=== PATIENT | female | born 1995 | race Caucasian/White ===

== ENCOUNTER 2017-03-07 20:19 | Observation (INO) | payer MEDICAID ==
[2017-03-07 20:50] VITALS: BP 124/88; PULSE 127
[2017-03-07 21:57] LABS: Collection Type CLEAN CATCH
[2017-03-07 21:58] LABS: Bilirubin NEGATIVE (NEGATIVE); Blood 50 Ery/ul (0-5); COMPLETE URINE MICROSCOPIC? YES; Glucose NEGATIVE (NEGATIVE); Leukocyte Esterase 2+ (NEGATIVE)
[2017-03-07 21:59] LABS: Bacteria FEW /HPF (NEGATIVE); Epithelial Cells FEW /HPF (FEW)
== END 2017-03-07 22:18 | disposition home or self-care (01) ==
LOC: OB 20:19 → UNDOADMOB 20:19 → UNDODISOB 22:18
PROVIDERS: ADMIT Family Medicine; ATTEND Family Medicine
DX: Z34.82 Encounter for supervision of other normal pregnancy, second trimester (principal)
CPT/HCPCS: 80307; 81000; 87086; G0378

== ENCOUNTER 2017-06-02 15:02 | Observation (INO) | payer MEDICAID ==
[2017-06-02 16:55] LABS: Bilirubin SMALL (NEGATIVE); Collection Type VOID; Glucose TRACE mg/dL (NEGATIVE); Leukocyte Esterase 2+ (NEGATIVE)
[2017-06-02 16:56] LABS: Bacteria MODERATE /HPF (NEGATIVE); COMPLETE URINE MICROSCOPIC? YES; Epithelial Cells MODERATE /HPF (FEW); WBC >100 /HPF (0-5)
[2017-06-02] MEDS ORDERED: Sodium Chloride 0.9% 1000 ML 1,000 ML IV STA (17:08)
[2017-06-02 20:51] VITALS: BP 120/85; PULSE 118
== END 2017-06-02 20:30 | disposition home or self-care (01) ==
LOC: UNDOADMOB 15:02 → OB 15:02
PROVIDERS: ADMIT Family Medicine; ATTEND Family Medicine
DX: Z34.83 Encounter for supervision of other normal pregnancy, third trimester (principal)
CPT/HCPCS: 80307; 81000; G0378

== ENCOUNTER 2017-06-07 14:56 | Observation (INO) | payer MEDICAID ==
[2017-06-07 16:07] VITALS: BP 130/86; PULSE 99
== END 2017-06-07 17:20 | disposition home or self-care (01) ==
LOC: UNDOADMOB 14:56 → OB 14:56 → UNDODISOB 17:20
PROVIDERS: ADMIT Family Medicine; ATTEND Family Medicine
DX: Z34.83 Encounter for supervision of other normal pregnancy, third trimester (principal)
CPT/HCPCS: 59025; G0378

== ENCOUNTER 2017-06-25 00:51 | Observation (INO) | payer MEDICAID ==
[2017-06-25 01:03] VITALS: BP 130/81; PULSE 107
[2017-06-25] MEDS ORDERED: TYLENOL 325 MG PO PRN (02:34)
[2017-06-25] MEDS ORDERED: TYLENOL 325 MG ONE (02:35)
== END 2017-06-25 04:55 | disposition home or self-care (01) ==
LOC: OB 00:51
PROVIDERS: ADMIT Family Medicine; ATTEND Family Medicine
DX: Z34.83 Encounter for supervision of other normal pregnancy, third trimester (principal)
CPT/HCPCS: 80307; G0378; A9270-GY

== ENCOUNTER 2017-07-01 16:58 | Observation (INO) | payer MEDICAID ==
[2017-07-01 17:34] LABS: Bilirubin NEGATIVE (NEGATIVE); Blood 50 Ery/ul (0-5); COMPLETE URINE MICROSCOPIC? YES; Collection Type CCMS; Glucose NEGATIVE (NEGATIVE); Leukocyte Esterase 2+ (NEGATIVE)
[2017-07-01 17:36] LABS: Bacteria MANY /HPF (NEGATIVE); Epithelial Cells MODERATE /HPF (FEW); WBC 50-100 /HPF (0-5)
[2017-07-01 18:25] VITALS: BP 118/63; PULSE 111
== END 2017-07-01 18:25 | disposition home or self-care (01) ==
LOC: OB 16:58
PROVIDERS: ADMIT Family Medicine; ATTEND Family Medicine
DX: Z34.93 Encounter for supervision of normal pregnancy, unspecified, third trimester (principal); Z3A.36 36 weeks gestation of pregnancy
CPT/HCPCS: 80307; 81000; 87086; G0378

== ENCOUNTER 2017-07-08 05:39 | Observation (INO) | payer MEDICAID ==
[2017-07-08 09:22] VITALS: BP 125/85; PULSE 107
== END 2017-07-08 09:15 | disposition home or self-care (01) ==
LOC: OB 05:39
PROVIDERS: ADMIT Family Medicine; ATTEND Family Medicine
DX: Z34.83 Encounter for supervision of other normal pregnancy, third trimester (principal)
CPT/HCPCS: 80307; G0378

== ENCOUNTER 2017-07-08 21:06 | Observation (INO) | payer MEDICAID ==
[2017-07-08 21:45] LABS: Bilirubin NEGATIVE (NEGATIVE); Blood 50 Ery/ul (0-5); COMPLETE URINE MICROSCOPIC? YES; Collection Type VOID; Glucose NEGATIVE (NEGATIVE); Leukocyte Esterase 1+ (NEGATIVE)
[2017-07-08 21:46] LABS: Bacteria MANY /HPF (NEGATIVE); Epithelial Cells MANY /HPF (FEW); Mucus MANY /HPF (NEGATIVE); WBC 15-25 /HPF (0-5)
[2017-07-08] MEDS ORDERED: MAALOX ES 30 ML UNIT DOSE PO ONE (23:20)
[2017-07-08] MEDS ORDERED: MAALOX ES 30 ML UNIT DOSE ONE (23:22)
[2017-07-09] MEDS ORDERED: TYLENOL EXTRA STRENGTH 500 MG PO PRN (01:53)
[2017-07-09] MEDS ORDERED: TYLENOL EXTRA STRENGTH 500 MG ONE (01:58)
[2017-07-09 02:06] VITALS: BP 114/66; PULSE 122
== END 2017-07-09 07:00 | disposition home or self-care (01) ==
LOC: OB 21:06
PROVIDERS: ADMIT Family Medicine; ATTEND Family Medicine
DX: Z34.83 Encounter for supervision of other normal pregnancy, third trimester (principal)
CPT/HCPCS: 80307; 81000; G0378; A9270-GY

== ENCOUNTER 2017-07-11 19:41 | Observation (INO) | payer MEDICAID ==
[2017-07-11 23:17] VITALS: BP 112/67; PULSE 140
== END 2017-07-11 23:00 | disposition home or self-care (01) ==
LOC: UNDOADMOB 19:41 → OB 19:41 → UNDODISOB 23:00
PROVIDERS: ADMIT Family Medicine; ATTEND Family Medicine
DX: Z34.83 Encounter for supervision of other normal pregnancy, third trimester (principal)
CPT/HCPCS: 80307; G0378

== ENCOUNTER 2017-07-12 08:08 | Inpatient (IN) | payer MEDICAID ==
[2017-07-12] MEDS ORDERED: OB EPIDURAL NAROPIN/SUFENTANIL IN NACL EPIDURAL PRN (08:27)
[2017-07-12] MEDS ORDERED: Lactated Ringers 1,000 ML IV ONE (08:27)
[2017-07-12] MEDS ORDERED: STADOL 2 MG IV PRN (08:27)
[2017-07-12] MEDS ORDERED: Zofran 4 MG/2 ML VIAL IV PRN (08:27)
[2017-07-12] MEDS ORDERED: Phenergan 25 MG INJ IV PRN (08:27)
[2017-07-12] MEDS ORDERED: Ephedrine Sulfate 50 MG/ML IV PRN (08:27)
[2017-07-12] MEDS ORDERED: Lactated Ringers 1,000 ML IV SCH (08:30)
[2017-07-12] MEDS ORDERED: PITOCIN 30 UNITS/ LR 500 ML 500 ML IV SCH ×2 (08:30→10:00)
[2017-07-12 09:05] LABS: BASOPHIL % 0.2 % (0.0-0.4); Eosinophil % 1.7 % (0.00-5.0); Granulocytes % 72.1 % (36.0-66.0); Lymphocytes % 18.1 % (24.0-44.0); Mean Cell Volume 74.2 fl (78-100); Mean Platelet Volume 9.1 fl (6-9.5); Monocytes % 7.9 % (0.0-12.0); Platelet Count 281 K/mm3 (150-450); Red Blood Count 3.65 M/mm3 (4.1-5.4); White Blood Count 9.6 K/mm3 (4.0-10.5)
[2017-07-12 09:37] LABS: BAND 2 % (0.0-2.0); Eosinophil 2 % (0.00-3.0); Metamyelocyte 1 %; Platelet Estimate NORMAL (NORMAL); Total Cells Counted 100
[2017-07-12 09:38] LABS: Hypochromia 1+; Polychromasia 1+
[2017-07-12] MEDS ORDERED: BRETHINE 1 MG/ML SQ PRN (09:45)
[2017-07-12] MEDS ORDERED: XYLOCAINE 1% HCL 20 ML MDV ONE (14:05)
[2017-07-12] MEDS ORDERED: Anucort-HC SUPPOSITORY PR PRN (15:05)
[2017-07-12] MEDS ORDERED: Dermoplast Spray TP PRN (15:05)
[2017-07-12] MEDS ORDERED: Dulcolax 10 MG SUPP PR PRN (15:05)
[2017-07-12] MEDS ORDERED: Ambien 10 MG PO PRN (15:05)
[2017-07-12] MEDS ORDERED: TUCKS TP PRN (15:05)
[2017-07-12] MEDS ORDERED: TYLENOL EXTRA STRENGTH 500 MG PO PRN (15:05)
[2017-07-12] MEDS ORDERED: CORTISONE 1% CREAM TP PRN (15:05)
[2017-07-12] MEDS ORDERED: Restoril 15 MG PO PRN (15:05)
[2017-07-12 18:32] LABS: BASOPHIL % 0.1 % (0.0-0.4); Eosinophil % 0.6 % (0.00-5.0); Granulocytes % 83.8 % (36.0-66.0); Lymphocytes % 11.6 % (24.0-44.0); Mean Cell Volume 74.3 fl (78-100); Mean Corpuscular Hemoglobin 22.4 pg (26-32); Mean Platelet Volume 9.3 fl (6-9.5); Monocytes % 3.9 % (0.0-12.0); Platelet Count 248 K/mm3 (150-450); Red Blood Count 3.43 M/mm3 (4.1-5.4); Red Cell Distribution Width 15.9 % (11.5-14.0); White Blood Count 12.1 K/mm3 (4.0-10.5)
[2017-07-12] MEDS: MOTRIN 400 MG PO PRN (19:47)
[2017-07-12] MEDS: NORCO 5/325 MG PO PRN (19:47)
[2017-07-12] MEDS: Colace 100 MG PO SCH (22:55)
[2017-07-12] MEDS: FEOSOL 325 MG PO SCH (22:55)
[2017-07-13] MEDS: MOTRIN 400 MG PO PRN ×3 (01:36→23:50)
[2017-07-13] MEDS: NORCO 5/325 MG PO PRN ×4 (01:36→23:50)
[2017-07-13 05:38] LABS: BASOPHIL % 0.3 % (0.0-0.4); Eosinophil % 1.7 % (0.00-5.0); Granulocytes % 64.3 % (36.0-66.0); Mean Cell Volume 74.7 fl (78-100); Mean Corpuscular Hemoglobin 22.7 pg (26-32); Mean Platelet Volume 9.2 fl (6-9.5); Monocytes % 8.7 % (0.0-12.0); Platelet Count 244 K/mm3 (150-450); Red Blood Count 3.08 M/mm3 (4.1-5.4); Red Cell Distribution Width 15.6 % (11.5-14.0); White Blood Count 9.5 K/mm3 (4.0-10.5)
[2017-07-13] MEDS: Colace 100 MG PO SCH ×2 (08:59→23:46)
[2017-07-13] MEDS: FEOSOL 325 MG PO SCH ×2 (08:59→23:46)
[2017-07-14] MEDS: MOTRIN 400 MG PO PRN ×2 (06:04→13:11)
[2017-07-14] MEDS: NORCO 5/325 MG PO PRN ×2 (06:05→14:59)
[2017-07-14] MEDS: Colace 100 MG PO SCH (12:21)
[2017-07-14] MEDS: FEOSOL 325 MG PO SCH (12:21)
[2017-07-14 14:48] VITALS: BP 136/86; PULSE 92
== END 2017-07-14 15:20 | disposition home or self-care (01) | DRG 775 ==
LOC: OBSVTOIN 08:08 → OB 08:08
PROVIDERS: ADMIT Family Medicine; ATTEND Family Medicine
PROC: 10E0XZZ Delivery of Products of Conception, External Approach (ICD-10-PCS; principal; 2017-07-12)
DX: O80 Encounter for full-term uncomplicated delivery (principal); Z3A.37 37 weeks gestation of pregnancy; Z37.0 Single live birth
CPT/HCPCS: 01967; 36415; 80307; 85025; G0378; J2590; J2795; A9270-GY

== ENCOUNTER 2018-07-14 21:57 | Emergency (ER) | payer OTHER ==
[2018-07-14] MEDS ORDERED: Sodium Chloride 0.9% 1000 ML 1,000 ML IV STA (22:05)
[2018-07-14] MEDS ORDERED: BABY ASPIRIN 81 MG CHEW PO ONE (22:05)
[2018-07-14] MEDS ORDERED: BABY ASPIRIN 81 MG CHEW ONE (22:11)
[2018-07-14] MEDS ORDERED: Sodium Chloride 0.9% 1000 ML 1,000 ML ONE (22:11)
[2018-07-14 22:18] LABS: BASOPHIL % 0.6 % (0.0-0.4); Basophil (Absolute #) 0.04 (0-0.4); Eosinophil % 2.7 % (0.00-5.0); Eosinophil (Absolute #) 0.17 (0-0.5); Granulocyte Absolute (ANC) 3.28 (1.4-6.9); Hematocrit 40.8 % (35-47); Hemoglobin 13.2 gm/dl (12.0-16.0); Lymphocyte (Absolute #) 2.26 (1.0-4.6); Lymphocytes % 35.8 % (24.0-44.0); Mean Cell Volume 79.7 fl (78-100); Mean Corpuscular Hemoglobin 25.8 pg (26-32); Mean Corpuscular Hgb Concent. 32.4 g/dl (32-36); Mean Platelet Volume 10.3 fl (6-9.5); Monocyte (Absolute #) 0.56 (0.0-1.3); Monocytes % 8.9 % (0.0-12.0); Platelet Count 259 K/mm3 (150-450); Red Blood Count 5.12 M/mm3 (4.1-5.4); Red Cell Distribution Width 17.3 % (11.5-14.0); White Blood Count 6.3 K/mm3 (4.0-10.5)
[2018-07-14 22:36] LABS: ANION GAP 14.7 MEQ/L (5-15); BLOOD UREA NITROGEN 16 mg/dL (7-17); CHLORIDE 103 mmol/L (98-107); Carbon Dioxide 28 mmol/L (22-30); Creatinine 1 0.69 mg/dL (0.52-1.04); Glucose 94 mg/dL (74-106); Potassium 3.8 mmol/L (3.5-5.1); SODIUM 141 mmol/L (137-145)
--- NOTE | 2018-07-14 22:44 | ERPHSYRPT ---
- History of Present Illness Time Seen by Provider: 07/14/18 22:10 Historian: patient Exam Limitations: clinical condition Patient Subjective Stated Complaint: pt states that she has had chest pain for 2 months. pt states that she has had had chest pain today since 0700 that radiates to her back. pt states she has felt lightheaded and dizzy with these chest pains, palpitations, and fatigue. pt states she has some tingling in her right hand fingers. pt denies SOB, n/v. radial pulses equal. no diaphoresis. Triage Nursing Assessment: see above Physician History: PATIENT COMPLAINS OF INTERMITTENT SHARP PAINS FOR 2 MONTHS ASSOCIATED WITH PALPITATIONS, DYSPNEA AND DIZZINESS. STATES PAIN EXACERBATED UPON MOTION OF TORSO AND INSPIRATION. DENIES COUGH, FEVER OR CHILLS. HAS RADIATION OF PAIN TO HER BACK. Timing/Duration: week(s) (8) Activities at Onset: activity Quality: sharpness Location: substernal Chest Pain Radiation: back Severity of Pain-Max: moderate Severity of Pain-Current: mild Modifying Factors: Improves With: movement, change in position Associated Symptoms: shortness of breath, dizziness Prior Chest Pain/Cardiac Workup: no prior cardiac workup Nitro Today/Relief: no nitro taken today Aspirin Treatment Today: 81 mg x 4, provided by EMS Allergies/Adverse Reactions: No Known Drug Allergies Allergy (Verified 07/11/17 20:24) Hx Tetanus, Diphtheria Vaccination/Date Given: Yes Hx Influenza Vaccination/Date Given: Yes (2016) Hx Pneumococcal Vaccination/Date Given: No Immunizations Up to Date: Yes - Review of Systems Constitutional: No Fever, No Chills Eyes: No Symptoms Ears, Nose, & Throat: No Symptoms Respiratory: Dyspnea, No Cough Cardiac: Chest Pain, Palpitations, No Edema, No Syncope Abdominal/Gastrointestinal: No Abdominal Pain, No Nausea, No Vomiting, No Diarrhea Genitourinary Symptoms: No Dysuria Musculoskeletal: No Back Pain, No Neck Pain Skin: No Rash Neurological: Other (DIZZINESS), No Dizziness, No Focal Weakness, No Sensory Changes Psychological: No Symptoms Endocrine: No Symptoms All Other Systems: Reviewed and Negative - Past Medical History Pertinent Past Medical History: No Neurological History: No Pertinent History ENT History: No Pertinent History Cardiac History: No Pertinent History Respiratory History: No Pertinent History Endocrine Medical History: No Pertinent History Musculoskeletal History: No Pertinent History GI Medical History: No Pertinent History History: No Pertinent History Psycho-Social History: Depression Female Reproductive Disorders: No Pertinent History Other Medical History: 2wk hospitalization at age 5 for e-coli - Past Surgical History Past Surgical History: No Neuro Surgical History: No Pertinent History Cardiac: No Pertinent History Respiratory: No Pertinent History Gastrointestinal: No Pertinent History Genitourinary: No Pertinent History Musculoskeletal: No Pertinent History Female Surgical History: No Pertinent History - Social History Smoking Status: Current every day smoker How long have you smoked: 2 years Exposure to second hand smoke: No Drug Use: none Patient Lives Alone: No - Female History Hx Now: (UNKNOWN) - Nursing Vital Signs Nursing Vital Signs: Initial Vital Signs Pulse Rate 129 H 07/14/18 21:58 Respiratory Rate 16 07/14/18 21:58 Blood Pressure 138/109 07/14/18 21:58 O2 Sat by Pulse Oximetry 100 07/14/18 21:58 Pain Scale Pain Intensity 4 - Physical Exam General Appearance: no apparent distress, alert, other (APPEARS IN NO DISTRESS) Eye Exam: PERRL/EOMI, eyes nml inspection Ears, Nose, Throat Exam: normal ENT inspection, moist mucous membranes Neck Exam: normal inspection, non-tender, supple, full range of motion Respiratory Exam: normal breath sounds, chest tenderness (PARASTERNAL TENDERNESS T4 TO T6 PARASTERNAL), lungs clear, No respiratory distress Cardiovascular Exam: regular rate/rhythm, normal heart sounds, tachycardia Gastrointestinal/Abdomen Exam: soft, No tenderness, No mass Back Exam: normal inspection, No CVA tenderness, No vertebral tenderness Extremity Exam: normal inspection, normal range of motion Neurologic Exam: alert, 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, cooperative, normal mood/affect, sensation nml, No motor deficits Skin Exam: normal color, warm, dry SpO2: 100 Oxygen Delivery: Room Air - Course EKG Interpreted by Me: RATE, Sinus Rhythm, Sinus Tach, NORMAL INTERVALS, Other ( REPEAT EKG AT 2341 NORAML SINUS RATE OF 64 NO ISCHEMIC CHANGES) Ordered Tests: Active Orders 24 hr Category Date Time Status EKG-ER Only STAT Care 07/14/18 22:05 Active IV Insertion STAT Care 07/14/18 22:05 Active CHEST 2 VIEWS (PA AND LAT) Stat Exams 07/14/18 22:05 Taken BMP Stat Lab 07/14/18 22:05 Completed CBC W DIFF Stat Lab 07/14/18 22:05 Completed D-DIMER QUANTITATION Stat Lab 07/14/18 22:05 Completed HCG,QUALITATIVE URINE Stat Lab 07/14/18 22:50 Completed MAG [MAGNESIUM] Stat Lab 07/14/18 22:05 Completed TROPONIN Q3H Lab 07/14/18 22:05 Completed TROPONIN Q3H Lab 07/15/18 01:15 Ordered TROPONIN Q3H Lab 07/15/18 04:15 Ordered TROPONIN Q3H Lab 07/15/18 07:15 Ordered TROPONIN Q3H Lab 07/15/18 10:15 Ordered TSH [TSH, 3RD Generation] Stat Lab 07/14/18 22:05 Completed Urine Triage Profile Stat Lab 07/14/18 22:50 Completed Medication Summary Generic Name Dose Route Start Last Admin Trade Name Freq PRN Reason Stop Dose Admin Sodium Chloride 1,000 mls @ 500 mls/hr 07/14/18 22:05 07/14/18 22:15 Sodium Chloride 0.9% 1000 Ml IV 07/15/18 00:04 500 mls/hr .Q2H STA Administration Discontinued Medications Generic Name Dose Route Start Last Admin Trade Name Freq PRN Reason Stop Dose Admin Aspirin 324 mg 07/14/18 22:05 07/14/18 22:14 Baby Aspirin 81 Mg Chew PO 07/14/18 22:06 324 mg STAT ONE Administration Aspirin Confirm 07/14/18 22:11 Baby Aspirin 81 Mg Chew Administered 07/14/18 22:12 Dose 324 mg .ROUTE .STK-MED ONE Sodium Chloride Confirm 07/14/18 22:11 Sodium Chloride 0.9% 1000 Ml Administered 07/14/18 22:12 Dose 1,000 mls @ ud .ROUTE .STK-MED ONE Lab/Rad Data: Laboratory Result Diagrams 07/14/18 22:05 07/14/18 22:05 Laboratory Results 07/14/18 07/14/18 07/14/18 Range/Units 22:50 22:50 22:05 WBC (4.0-10.5) K/mm3 RBC (4.1-5.4) M/mm3 Hgb (12.0-16.0) gm/dl Hct (35-47) % MCV (78-100) fl MCH (26-32) pg MCHC (32-36) g/dl RDW (11.5-14.0) % Plt Count (150-450) K/mm3 MPV (6-9.5) fl Gran % (36.0-66.0) % Eos # (Auto) (0-0.5) Absolute Lymphs (auto) (1.0-4.6) Absolute Monos (auto) (0.0-1.3) Lymphocytes % (24.0-44.0) % Monocytes % (0.0-12.0) % Eosinophils % (0.00-5.0) % Basophils % (0.0-0.4) % Absolute Granulocytes (1.4-6.9) Basophils # (0-0.4) D-Dimer (215-500) ng/mL Sodium (137-145) mmol/L Potassium (3.5-5.1) mmol/L Chloride (98-107) mmol/L Carbon Dioxide (22-30) mmol/L Anion Gap (5-15) MEQ/L BUN (7-17) mg/dL Creatinine (0.52-1.04) mg/dL Estimated GFR ML/MIN Glucose (74-106) mg/dL Calcium (8.4-10.2) mg/dL Magnesium 2.3 (1.6-2.3) mg/dL Troponin I (0.000-0.034) ng/mL TSH 3rd Generation (0.47-4.68) mIU/L Urine HCG, Qual NEGATIVE (Negative) Urine Opiates Level NEGATIVE (NEGATIVE) Ur Methadone NEGATIVE (NEGATIVE) Urine Barbiturates NEGATIVE (NEGATIVE) Ur Phencyclidine (PCP) NEGATIVE (NEGATIVE) Urine Amphetamine NEGATIVE (NEGATIVE) U Benzodiazepine Level NEGATIVE (NEGATIVE) Urine Cocaine NEGATIVE (NEGATIVE) Urine Marijuana (THC) POSITIVE (NEGATIVE) 07/14/18 07/14/18 07/14/18 Range/Units 22:05 22:05 22:05 WBC (4.0-10.5) K/mm3 RBC (4.1-5.4) M/mm3 Hgb (12.0-16.0) gm/dl Hct (35-47) % MCV (78-100) fl MCH (26-32) pg MCHC (32-36) g/dl RDW (11.5-14.0) % Plt Count (150-450) K/mm3 MPV (6-9.5) fl Gran % (36.0-66.0) % Eos # (Auto) (0-0.5) Absolute Lymphs (auto) (1.0-4.6) Absolute Monos (auto) (0.0-1.3) Lymphocytes % (24.0-44.0) % Monocytes % (0.0-12.0) % Eosinophils % (0.00-5.0) % Basophils % (0.0-0.4) % Absolute Granulocytes (1.4-6.9) Basophils # (0-0.4) D-Dimer 233 (215-500) ng/mL Sodium (137-145) mmol/L Potassium (3.5-5.1) mmol/L Chloride (98-107) mmol/L Carbon Dioxide (22-30) mmol/L Anion Gap (5-15) MEQ/L BUN (7-17) mg/dL Creatinine (0.52-1.04) mg/dL Estimated GFR ML/MIN Glucose (74-106) mg/dL Calcium (8.4-10.2) mg/dL Magnesium (1.6-2.3) mg/dL Troponin I < 0.012 (0.000-0.034) ng/mL TSH 3rd Generation 2.790 (0.47-4.68) mIU/L Urine HCG, Qual (Negative) Urine Opiates Level (NEGATIVE) Ur Methadone (NEGATIVE) Urine Barbiturates (NEGATIVE) Ur Phencyclidine (PCP) (NEGATIVE) Urine Amphetamine (NEGATIVE) U Benzodiazepine Level (NEGATIVE) Urine Cocaine (NEGATIVE) Urine Marijuana (THC) (NEGATIVE) 07/14/18 07/14/18 Range/Units 22:05 22:05 WBC 6.3 (4.0-10.5) K/mm3 RBC 5.12 (4.1-5.4) M/mm3 Hgb 13.2 (12.0-16.0) gm/dl Hct 40.8 (35-47) % MCV 79.7 (78-100) fl MCH 25.8 L (26-32) pg MCHC 32.4 (32-36) g/dl RDW 17.3 H (11.5-14.0) % Plt Count 259 (150-450) K/mm3 MPV 10.3 H (6-9.5) fl Gran % 52.0 (36.0-66.0) % Eos # (Auto) 0.17 (0-0.5) Absolute Lymphs (auto) 2.26 (1.0-4.6) Absolute Monos (auto) 0.56 (0.0-1.3) Lymphocytes % 35.8 (24.0-44.0) % Monocytes % 8.9 (0.0-12.0) % Eosinophils % 2.7 (0.00-5.0) % Basophils % 0.6 (0.0-0.4) % Absolute Granulocytes 3.28 (1.4-6.9) Basophils # 0.04 (0-0.4) D-Dimer (215-500) ng/mL Sodium 141 (137-145) mmol/L Potassium 3.8 (3.5-5.1) mmol/L Chloride 103 (98-107) mmol/L Carbon Dioxide 28 (22-30) mmol/L Anion Gap 14.7 (5-15) MEQ/L BUN 16 (7-17) mg/dL Creatinine 0.69 (0.52-1.04) mg/dL Estimated GFR > 60.0 ML/MIN Glucose 94 (74-106) mg/dL Calcium 10.0 (8.4-10.2) mg/dL Magnesium (1.6-2.3) mg/dL Troponin I (0.000-0.034) ng/mL TSH 3rd Generation (0.47-4.68) mIU/L Urine HCG, Qual (Negative) Urine Opiates Level (NEGATIVE) Ur Methadone (NEGATIVE) Urine Barbiturates (NEGATIVE) Ur Phencyclidine (PCP) (NEGATIVE) Urine Amphetamine (NEGATIVE) U Benzodiazepine Level (NEGATIVE) Urine Cocaine (NEGATIVE) Urine Marijuana (THC) (NEGATIVE) - Progress Progress Note: 07/14/18 22:44 IV HYDRATION NORMAL SALINE 1 LITER/HR, LOPRESSOR 5MG IV, ALL LAB TEST REVIEWED AND ARE NORMAL ADMINISTERED HOILTER MONITOR 48 HOURS 07/14/18 23:48 Counseled pt/family regarding: lab results, diagnosis, need for follow-up, rad results - Departure Time of Disposition: 23:55 Departure Disposition: Home Clinical Impression: PALPITATIONS, CHEST WALL PAIN Condition: Stable Critical Care Time: No Referrals: LIAN REYES [Primary Care Provider] - Additional Instructions: TORADOL 10 MG EVERY 6 HOURS NEEDED FOR PAIN. WEAR HOILTER MONITOR FOR 48 HOURS THEN RETURN TO RESPIRATORY DEPARTMENT. CONSULT YOUR PRIMARY CARE PROVIDER FOR FOLLOWUP IN 1 WEEK. Prescriptions: Ketorolac Tromethamine [Toradol] 10 mg PO Q6H PRN PRN #20 tablet PRN Reason: Pain
[2018-07-14 23:22] LABS: Amphetamine,Urine NEGATIVE (NEGATIVE); Barbiturate,Urine NEGATIVE (NEGATIVE); Benzodiazepine,Urine NEGATIVE (NEGATIVE); Cocaine,Urine NEGATIVE (NEGATIVE); Methadone,Urine NEGATIVE (NEGATIVE); Opiate,Urine NEGATIVE (NEGATIVE); PCP,Urine NEGATIVE (NEGATIVE); THC,Urine POSITIVE (NEGATIVE)
[2018-07-14 23:41] VITALS: PULSE 61; O2SAT 100
[2018-07-14] MEDS ORDERED: TORAdol 10 MG TABLET PO ONE (23:53)
[2018-07-14 23:54] VITALS: BP 112/82
[2018-07-14] MEDS ORDERED: MOTRIN 600 MG ONE (23:56)
[2018-07-14] MEDS ORDERED: MOTRIN 600 MG PO ONE (23:56)
--- NOTE | 2018-07-15 08:35 | XRAY ---
Indication: Chest pain. Comparison: None PA/lateral chest demonstrates normal heart and lungs with a few incidental tiny calcified granulomas. Bony thorax intact with minimal double curvature scoliosis.
== END 2018-07-15 00:10 | disposition home or self-care (01) ==
LOC: ED 21:57
DX: R07.89 Other chest pain (principal); R00.2 Palpitations; R06.00 Dyspnea, unspecified; R42 Dizziness and giddiness
CPT/HCPCS: 36000; 36415; 71046; 80048; 80307; 83735; 84443; 84484; 84703; 85025; 85379; 93005; 93225; 96360; 99284; A9270-GY

== ENCOUNTER 2019-04-29 22:26 | Observation (INO) | payer OTHER ==
[2019-04-29] MEDS ORDERED: Sodium Chloride 0.9% 1000 ML 1,000 ML IV STA (23:04)
[2019-04-29] MEDS ORDERED: Phenergan 25 MG INJ IM ONE (23:04)
--- NOTE | 2019-04-29 23:07 | ERPHSYRPT ---
- History of Present Illness Time Seen by Provider: 04/29/19 23:05 Historian: patient Exam Limitations: no limitations Physician History: 23-year-old white female arrives with complaint of suprapubic abdominal pain symptoms since one half hour prior to arrival. Patient has no nausea no vomiting no diarrhea no fevers. Past medical history depression apparently has had Escherichia coli in the past. Past surgical history negative Last menstrual period 2 days ago Timing/Duration: today (one half hour ago) Quality: cramping Abdominal Pain Onset Location: suprapubic Pain Radiation: no radiation Severity of Pain-Max: moderate Severity of Pain-Current: none Associated Symptoms: No back, No chest pain, No diaphoresis, No diarrhea, No fever/chills, No fatigue, No headache, No heartburn, No loss of appetite, No nausea, No neck pain, No rash, No shortness of breath, No syncope, No vomiting, No weakness Previous symptoms: no prior history Allergies/Adverse Reactions: No Known Drug Allergies Allergy (Verified 04/29/19 23:04) Home Medications: No Reportable Medications [No Reported Medications] 04/29/19 [History] Hx Tetanus, Diphtheria Vaccination/Date Given: Yes Hx Influenza Vaccination/Date Given: Yes (2016) Hx Pneumococcal Vaccination/Date Given: No - Review of Systems Constitutional: No Fever, No Chills Eyes: No Symptoms Ears, Nose, & Throat: No Symptoms Respiratory: No Cough, No Dyspnea Cardiac: No Chest Pain, No Edema, No Syncope Abdominal/Gastrointestinal: Abdominal Pain (suprapubic abdominal pain), No Nausea, No Vomiting, No Diarrhea, No Constipation, No Hematemesis, No Hematochezia, No Melena, No Dysphagia, No Appetite Changes Genitourinary Symptoms: No Dysuria Musculoskeletal: No Back Pain, No Neck Pain Skin: No Rash Neurological: No Dizziness, No Focal Weakness, No Sensory Changes Psychological: No Symptoms Endocrine: No Symptoms All Other Systems: Reviewed and Negative - Past Medical History Pertinent Past Medical History: No Neurological History: No Pertinent History ENT History: No Pertinent History Cardiac History: No Pertinent History Respiratory History: No Pertinent History Endocrine Medical History: No Pertinent History Musculoskeletal History: No Pertinent History GI Medical History: No Pertinent History History: No Pertinent History Psycho-Social History: Depression Female Reproductive Disorders: No Pertinent History Other Medical History: 2wk hospitalization at age 5 for e-coli - Past Surgical History Past Surgical History: No Neuro Surgical History: No Pertinent History Cardiac: No Pertinent History Respiratory: No Pertinent History Gastrointestinal: No Pertinent History Genitourinary: No Pertinent History Musculoskeletal: No Pertinent History Female Surgical History: No Pertinent History - Social History Smoking Status: Current every day smoker How long have you smoked: 2 years Exposure to second hand smoke: No Drug Use: none Patient Lives Alone: No - Nursing Vital Signs Nursing Vital Signs: Initial Vital Signs Temperature 97.4 F 04/29/19 23:05 Pulse Rate 52 L 04/29/19 23:05 Respiratory Rate 18 04/29/19 23:05 Blood Pressure 129/90 04/29/19 23:05 O2 Sat by Pulse Oximetry 100 04/29/19 23:05 Pain Scale Pain Intensity 10 - Physical Exam General Appearance: mild distress, alert, other (patient keeps her knees drawn up will not straighten them so they can evaluate her abdomen) Eye Exam: PERRL/EOMI, eyes nml inspection Ears, Nose, Throat Exam: normal ENT inspection, pharynx normal, moist mucous membranes Neck Exam: normal inspection, non-tender, supple, full range of motion Respiratory Exam: normal breath sounds, lungs clear, No respiratory distress Cardiovascular Exam: regular rate/rhythm, normal heart sounds, capillary refill <2 sec Gastrointestinal/Abdomen Exam: tenderness (suprapubic abdominal tenderness), No mass Back Exam: normal inspection, normal range of motion, No CVA tenderness, No vertebral tenderness Extremity Exam: normal inspection, normal range of motion, pelvis stable Neurologic Exam: alert, 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, 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 Small amount of ascites. Fluid-filled distal small bowel with some questionable mucosal prominence may represent a nonspecific enteritis. 2. No obstructive stone hydronephrosis. Structure likely representing a normal appendix in the right pelvis.) Ordered Tests: Active Orders 24 hr Category Date Time Status IV Insertion STAT Care 04/29/19 23:04 Active ABDOMEN AND PELVIS W/0 CONTRAS [CT] Stat Exams 04/30/19 00:21 Taken AMYLASE Stat Lab 04/29/19 23:09 Completed CBC W DIFF Stat Lab 04/29/19 23:09 Completed CMP Stat Lab 04/29/19 23:09 Completed CULTURE,URINE Stat Lab 04/29/19 23:48 Received HCG QUALITATIVE,SERUM Stat Lab 04/29/19 23:48 Completed LIPASE Stat Lab 04/29/19 23:09 Completed UA W/RFX UR CULTURE Stat Lab 04/29/19 23:48 Completed Urine Triage Profile Stat Lab 04/29/19 23:48 Completed Medication Summary Discontinued Medications Generic Name Dose Route Start Last Admin Trade Name Ryneq PRN Reason Stop Dose Admin Sodium Chloride 1,000 mls @ 999 mls/hr 04/29/19 23:04 04/30/19 00:39 Sodium Chloride 0.9% 1000 Ml IV 04/30/19 00:04 Infused .Q1H1M STA Infusion Sodium Chloride Confirm 04/29/19 23:24 Sodium Chloride 0.9% 1000 Ml Administered 04/29/19 23:25 Dose 1,000 mls @ ud .ROUTE .STK-MED ONE Ceftriaxone Sodium/Dextrose 1 g in 50 mls @ 100 mls/hr 04/30/19 01:03 01:49 Rocephin 1 Gm-D5w 50 Ml Bag IV 04/30/19 01:32 Infused STAT STA Infusion Ceftriaxone Sodium/Dextrose Confirm 04/30/19 01:04 Rocephin 1 Gm-D5w 50 Ml Bag Administered 04/30/19 01:05 Dose 1 g in 50 mls @ ud IV .STK-MED ONE Morphine Sulfate 4 mg 04/29/19 23:57 04/30/19 00:00 Morphine Sulfate 4 Mg Inj IV 04/29/19 23:58 4 mg STAT ONE Administration Morphine Sulfate Confirm 04/29/19 23:58 Morphine Sulfate 4 Mg Inj Administered 04/29/19 23:59 Dose 4 mg .ROUTE .STK-MED ONE Promethazine HCl 25 mg 04/29/19 23:04 04/29/19 23:27 Phenergan 25 Mg Inj IM 04/29/19 23:05 25 mg STAT ONE Administration Promethazine HCl Confirm 04/29/19 23:24 Phenergan 25 Mg Inj Administered 04/29/19 23:25 Dose 25 mg .ROUTE .STK-MED ONE Lab/Rad Data: Laboratory Result Diagrams 04/29/19 23:09 04/29/19 23:09 Laboratory Results 04/29/19 04/29/19 04/29/19 Range/Units 23:48 23:48 23:48 WBC (4.0-10.5) K/mm3 RBC (4.1-5.4) M/mm3 Hgb (12.0-16.0) gm/dl Hct (35-47) % MCV (78-100) fl MCH (26-32) pg MCHC (32-36) g/dl RDW (11.5-14.0) % Plt Count (150-450) K/mm3 MPV (6-9.5) fl Gran % (36.0-66.0) % Eos # (Auto) (0-0.5) Absolute Lymphs (auto) (1.0-4.6) Absolute Monos (auto) (0.0-1.3) Lymphocytes % (24.0-44.0) % Monocytes % (0.0-12.0) % Eosinophils % (0.00-5.0) % Basophils % (0.0-0.4) % Absolute Granulocytes (1.4-6.9) Basophils # (0-0.4) Sodium (137-145) mmol/L Potassium (3.5-5.1) mmol/L Chloride (98-107) mmol/L Carbon Dioxide (22-30) mmol/L Anion Gap (5-15) MEQ/L BUN (7-17) mg/dL Creatinine (0.52-1.04) mg/dL Estimated GFR ML/MIN Glucose (74-106) mg/dL Calcium (8.4-10.2) mg/dL Total Bilirubin (0.2-1.3) mg/dL AST (14-36) U/L ALT (0-35) U/L Alkaline Phosphatase (38-126) U/L Serum Total Protein (6.3-8.2) g/dL Albumin (3.5-5.0) g/dL Amylase (30-110) U/L Lipase (23-300) U/L Serum , Qual NEGATIVE (Negative) Urine Color YELLOW (YELLOW) Urine Appearance CLEAR (CLEAR) Urine pH 5.0 (5-6) Ur Specific [place] 1.024 (1.005-1.025) Urine Protein 30 (Negative) Urine Ketones TRACE (NEGATIVE) Urine Blood SMALL (0-5) Michel/ul Urine Nitrite NEGATIVE (NEGATIVE) Urine Bilirubin NEGATIVE (NEGATIVE) Urine Urobilinogen 4 (0-1) mg/dL Ur Leukocyte Esterase MODERATE (NEGATIVE) Urine WBC (Auto) 26-50 (0-5) /HPF Urine RBC (Auto) 6-10 (0-2) /HPF U Epithel Cells (Auto) RARE (FEW) /HPF Urine Bacteria (Auto) RARE (NEGATIVE) /HPF Urine Mucus (Auto) MANY (NEGATIVE) /HPF Urine Culture Reflexed YES (NO) Urine Glucose NEGATIVE (NEGATIVE) mg/dL Urine Opiates Level NEGATIVE (NEGATIVE) Ur Methadone NEGATIVE (NEGATIVE) Urine Barbiturates NEGATIVE (NEGATIVE) Ur Phencyclidine (PCP) NEGATIVE (NEGATIVE) Urine Amphetamine POSITIVE (NEGATIVE) U Benzodiazepine Level NEGATIVE (NEGATIVE) Urine Cocaine NEGATIVE (NEGATIVE) Urine Marijuana (THC) POSITIVE (NEGATIVE) 04/29/19 04/29/19 Range/Units 23:09 23:09 WBC 4.7 (4.0-10.5) K/mm3 RBC 5.24 (4.1-5.4) M/mm3 Hgb 14.4 (12.0-16.0) gm/dl Hct 42.9 (35-47) % MCV 81.9 (78-100) fl MCH 27.5 (26-32) pg MCHC 33.6 (32-36) g/dl RDW 14.0 (11.5-14.0) % Plt Count 246 (150-450) K/mm3 MPV 9.9 H (6-9.5) fl Gran % 44.5 (36.0-66.0) % Eos # (Auto) 0.23 (0-0.5) Absolute Lymphs (auto) 2.05 (1.0-4.6) Absolute Monos (auto) 0.31 (0.0-1.3) Lymphocytes % 43.6 (24.0-44.0) % Monocytes % 6.6 (0.0-12.0) % Eosinophils % 4.9 (0.00-5.0) % Basophils % 0.4 (0.0-0.4) % Absolute Granulocytes 2.09 (1.4-6.9) Basophils # 0.02 (0-0.4) Sodium 141 (137-145) mmol/L Potassium 3.6 (3.5-5.1) mmol/L Chloride 104 (98-107) mmol/L Carbon Dioxide 28 (22-30) mmol/L Anion Gap 12.8 (5-15) MEQ/L BUN 17 (7-17) mg/dL Creatinine 0.83 (0.52-1.04) mg/dL Estimated GFR > 60.0 ML/MIN Glucose 97 (74-106) mg/dL Calcium 9.6 (8.4-10.2) mg/dL Total Bilirubin 0.50 (0.2-1.3) mg/dL AST 26 (14-36) U/L ALT 17 (0-35) U/L Alkaline Phosphatase 59 (38-126) U/L Serum Total Protein 7.7 (6.3-8.2) g/dL Albumin 4.6 (3.5-5.0) g/dL Amylase 76 (30-110) U/L Lipase 82 (23-300) U/L Serum , Qual (Negative) Urine Color (YELLOW) Urine Appearance (CLEAR) Urine pH (5-6) Ur Specific [place] (1.005-1.025) Urine Protein (Negative) Urine Ketones (NEGATIVE) Urine Blood (0-5) Michel/ul Urine Nitrite (NEGATIVE) Urine Bilirubin (NEGATIVE) Urine Urobilinogen (0-1) mg/dL Ur Leukocyte Esterase (NEGATIVE) Urine WBC (Auto) (0-5) /HPF Urine RBC (Auto) (0-2) /HPF U Epithel Cells (Auto) (FEW) /HPF Urine Bacteria (Auto) (NEGATIVE) /HPF Urine Mucus (Auto) (NEGATIVE) /HPF Urine Culture Reflexed (NO) Urine Glucose (NEGATIVE) mg/dL Urine Opiates Level (NEGATIVE) Ur Methadone (NEGATIVE) Urine Barbiturates (NEGATIVE) Ur Phencyclidine (PCP) (NEGATIVE) Urine Amphetamine (NEGATIVE) U Benzodiazepine Level (NEGATIVE) Urine Cocaine (NEGATIVE) Urine Marijuana (THC) (NEGATIVE) - Progress Progress: improved Progress Note: 04/30/19 00:22 23-year-old white female arrives with complaint suprapubic abdominal pain since just prior to arrival. Patient with negative test CBC CMP essentially normal. Patient given normal saline 1 L Phenergan 25 mg IM and morphine 4 mg IV. Patient sleeping when I walk into her but states she still has some abdominal pain will go ahead and obtain CT of the abdomen and pelvis. patient does have a positive urinary tract infection. . 04/30/19 00:23 04/30/19 02:28 Remarkable for a small amount of ascites. There is a fluid filled distal small bowel with some questionable mucosal prominence which may represent nonspecific enteritis. There was no obstructing stone hydronephrosis and there was a structure likely representing a normal appendix in the right pelvis. Patient continue to have pain despite IV normal saline, morphine, IM Phenergan. Morphine 4 mg was ordered a second time I discussed the case with Dr. Wallace will place patient on observation diagnosis abdominal pain. UTI. Patient has been given Rocephin 1 g IV. - Departure Departure Disposition: Observation Clinical Impression: Abdominal pain Qualifiers: Abdominal location: lower abdomen, unspecified Qualified Code(s): R10.30 - Lower abdominal pain, unspecified UTI (urinary tract infection) Qualifiers: Urinary tract infection type: site unspecified Hematuria presence: with hematuria Qualified Code(s): N39.0 - Urinary tract infection, site not specified ; R31.9 - Hematuria, unspecified Condition: Fair Critical Care Time: No Referrals: LIAN REYES [Primary Care Provider] -
[2019-04-29 23:17] LABS: BASOPHIL % 0.4 % (0.0-0.4); Basophil (Absolute #) 0.02 (0-0.4); Eosinophil % 4.9 % (0.00-5.0); Eosinophil (Absolute #) 0.23 (0-0.5); Granulocyte Absolute (ANC) 2.09 (1.4-6.9); Granulocytes % 44.5 % (36.0-66.0); Hematocrit 42.9 % (35-47); Hemoglobin 14.4 gm/dl (12.0-16.0); Lymphocyte (Absolute #) 2.05 (1.0-4.6); Lymphocytes % 43.6 % (24.0-44.0); Mean Cell Volume 81.9 fl (78-100); Mean Corpuscular Hemoglobin 27.5 pg (26-32); Mean Corpuscular Hgb Concent. 33.6 g/dl (32-36); Mean Platelet Volume 9.9 fl (6-9.5); Monocyte (Absolute #) 0.31 (0.0-1.3); Monocytes % 6.6 % (0.0-12.0); Platelet Count 246 K/mm3 (150-450); Red Blood Count 5.24 M/mm3 (4.1-5.4); White Blood Count 4.7 K/mm3 (4.0-10.5)
[2019-04-29 23:18] LABS: ALBUMIN 4.6 g/dL (3.5-5.0); ALKALINE PHOSPHATASE 59 U/L (38-126); AMYLASE 76 U/L (30-110); ANION GAP 12.8 MEQ/L (5-15); BLOOD UREA NITROGEN 17 mg/dL (7-17); CHLORIDE 104 mmol/L (98-107); Calcium 9.6 mg/dL (8.4-10.2); Carbon Dioxide 28 mmol/L (22-30); Creatinine 1 0.83 mg/dL (0.52-1.04); Glucose 97 mg/dL (74-106); LIPASE 82 U/L (23-300); Potassium 3.6 mmol/L (3.5-5.1); SGOT/AST 26 U/L (14-36); SGPT/ALT 17 U/L (0-35); SODIUM 141 mmol/L (137-145); Total Protein 7.7 g/dL (6.3-8.2)
[2019-04-29] MEDS ORDERED: Phenergan 25 MG INJ ONE (23:24)
[2019-04-29] MEDS ORDERED: Sodium Chloride 0.9% 1000 ML 1,000 ML ONE (23:24)
[2019-04-29] MEDS ORDERED: MORPHINE SULFATE 4 MG INJ IV ONE (23:57)
[2019-04-29] MEDS ORDERED: MORPHINE SULFATE 4 MG INJ ONE (23:58)
[2019-04-30 00:04] LABS: Appearance CLEAR (CLEAR); Bacteria RARE /HPF (NEGATIVE); Bilirubin NEGATIVE (NEGATIVE); Blood SMALL Ery/ul (0-5); Epithelial Cells RARE /HPF (FEW); Glucose NEGATIVE (NEGATIVE); Ketones TRACE (NEGATIVE); Leukocyte Esterase MODERATE (NEGATIVE); Mucus MANY /HPF (NEGATIVE); Nitrite NEGATIVE (NEGATIVE); Protein,Urine Dip 30 (Negative); Specific Gravity 1.024 (1.005-1.025); Urobilinogen 4 mg/dL (0-1); WBC 26-50 /HPF (0-5)
[2019-04-30 00:16] LABS: Barbiturate,Urine NEGATIVE (NEGATIVE); Benzodiazepine,Urine NEGATIVE (NEGATIVE); Cocaine,Urine NEGATIVE (NEGATIVE); Methadone,Urine NEGATIVE (NEGATIVE); Opiate,Urine NEGATIVE (NEGATIVE); PCP,Urine NEGATIVE (NEGATIVE); THC,Urine POSITIVE (NEGATIVE)
[2019-04-30 00:32] LABS: Amphetamine,Urine POSITIVE (NEGATIVE)
[2019-04-30] MEDS ORDERED: ROCEPHIN 1 Gm-D5w 50 ml Bag** 1 G/50 ML IVPB IV STA (01:03)
[2019-04-30] MEDS ORDERED: ROCEPHIN 1 Gm-D5w 50 ml Bag** 1 G/50 ML IVPB IV ONE ×2 (01:04→19:57)
[2019-04-30] MEDS ORDERED: MORPHINE SULFATE 4 MG INJ ONE (02:27)
[2019-04-30] MEDS ORDERED: MORPHINE SULFATE 4 MG INJ IV ONE (02:27)
[2019-04-30] MEDS ORDERED: Zofran 4 MG/2 ML VIAL IV PRN (02:53)
[2019-04-30] MEDS: Sodium Chloride 0.9% 1000 ML 1,000 ML IV SCH ×3 (03:28→17:48)
[2019-04-30 05:38] LABS: BASOPHIL % 0.1 % (0.0-0.4); Basophil (Absolute #) 0.01 (0-0.4); Eosinophil % 1.2 % (0.00-5.0); Eosinophil (Absolute #) 0.13 (0-0.5); Granulocyte Absolute (ANC) 8.33 (1.4-6.9); Granulocytes % 78.5 % (36.0-66.0); Hematocrit 39.6 % (35-47); Hemoglobin 13.1 gm/dl (12.0-16.0); Lymphocyte (Absolute #) 1.57 (1.0-4.6); Lymphocytes % 14.8 % (24.0-44.0); Mean Cell Volume 83.2 fl (78-100); Mean Corpuscular Hemoglobin 27.5 pg (26-32); Mean Corpuscular Hgb Concent. 33.1 g/dl (32-36); Mean Platelet Volume 9.9 fl (6-9.5); Monocyte (Absolute #) 0.57 (0.0-1.3); Monocytes % 5.4 % (0.0-12.0); Platelet Count 203 K/mm3 (150-450); Red Blood Count 4.76 M/mm3 (4.1-5.4); White Blood Count 10.6 K/mm3 (4.0-10.5)
[2019-04-30 06:04] LABS: ALBUMIN 3.9 g/dL (3.5-5.0); ALKALINE PHOSPHATASE 55 U/L (38-126); ANION GAP 11.1 MEQ/L (5-15); BLOOD UREA NITROGEN 16 mg/dL (7-17); CHLORIDE 107 mmol/L (98-107); Calcium 9.1 mg/dL (8.4-10.2); Carbon Dioxide 27 mmol/L (22-30); Creatinine 1 0.76 mg/dL (0.52-1.04); Glucose 96 mg/dL (74-106); Potassium 3.5 mmol/L (3.5-5.1); SGOT/AST 28 U/L (14-36); SGPT/ALT 15 U/L (0-35); SODIUM 142 mmol/L (137-145); Total Protein 6.8 g/dL (6.3-8.2)
[2019-04-30 07:47] LABS: AMYLASE 51 U/L (30-110); LIPASE 47 U/L (23-300)
[2019-04-30] MEDS: MORPHINE SULFATE 4 MG INJ IV PRN ×3 (08:26→19:47)
--- NOTE | 2019-04-30 08:49 | XRAY ---
Indication: Right lower quadrant pain. Difficulty urinating. Multiple contiguous axial images obtained through the abdomen and pelvis without contrast as ordered. Comparison: None Lung bases are clear. Heart is not enlarged. Lack of contrast and little to no fat limits evaluation of the abdomen/pelvis. Stomach is distended with food/fluid. Noncontrasted stomach and bowel loops appear nonobstructed. Mild uniformly fluid distended small bowel loops throughout with synchronous fluid leveling, ileus versus enteritis. Tiny free fluid in the both colic gutters and pelvis. Normal air-filled appendix. No free air. Remaining liver, gallbladder, pancreas, spleen, adrenal glands, kidneys, bladder, uterus, and aorta appear unremarkable for noncontrast exam. Osseous structures intact. Impression: 1. Fluid distended small bowel loops with fluid leveling, ileus versus enteritis. Tiny abdomen/pelvic free fluid possibly reactive. 2. Remaining CT abdomen/pelvis without contrast exam is negative. Comment: Preliminary interpretation was made by [facility]. No discrepancy. CT DI 42.77
[2019-04-30] MEDS: BACTRIM DS TABLET PO SCH ×2 (09:47→21:46)
--- NOTE | 2019-04-30 10:24 | XRAY ---
Indication: Abdomen pain. Two-dimensional gallbladder sonogram performed. Comparison: None Tiny perihepatic fluid just anterior to the gallbladder. Remaining visualized portions of the gallbladder, liver, pancreas, and right kidney appear sonographically normal. Common bile duct measures 3.9 mm. Right kidney measures 13.5 cm in length. No ascites. Impression: Tiny nonspecific perihepatic fluid in a otherwise negative gallbladder sonogram.
--- NOTE | 2019-04-30 10:28 | XRAY ---
Indication: Pelvic pain. Two-dimensional transabdominal pelvic sonogram performed. Comparison: None Uterus anteverted measuring 8.0 x 3.6 x 5.0 cm. Myometrium homogeneous in echogenicity. Endometrial stripe measures 11.3 mm. No new major cavity mass or fluid collection. Left ovary measures 4.6 x 2.8 x 5.0 cm with normal follicular cysts. Right ovary not seen. No suspicious adnexal mass or free fluid. Incidental echogenic debris seen in the dependent urinary bladder lumen overall measuring 2.3 x 1.7 x 9.9 cm. Impression: 1. Right ovary not seen. Remaining uterus and left ovary sonographically unremarkable. 2. Urinary bladder echogenic debris.
[2019-04-30 13:42] LABS: CHLAMYDIA URINE NEGATIVE (NEGATIVE); GC URINE NEGATIVE (NEGATIVE)
[2019-04-30 17:01] VITALS: O2SAT 100
[2019-04-30] MEDS ORDERED: ROCEPHIN 1 Gm-D5w 50 ml Bag** 1 G/50 ML IVPB IV SCH (22:00)
[2019-05-01] MEDS: Sodium Chloride 0.9% 1000 ML 1,000 ML IV SCH (00:17)
[2019-05-01 07:23] VITALS: BP 117/82; PULSE 71
--- NOTE | 2019-05-01 10:24 | SSS ---
DISCHARGE DIAGNOSIS: URINARY TRACT INFECTION. HISTORY: The patient is a 23 year-old white female who presented to the emergency room with complaints of suprapubic pain that she had been having over the past half hour prior to arrival. The patient denied any dysuria. She has had no nausea, vomiting or diarrhea. The patient did have Escherichia coli urinary tract infections in the past at some point. PAST MEDICAL/SURGICAL HISTORY: Significant for anxiety and depression. She is very thin. It is noted that the patient misuses amphetamines and benzodiazepines. HOME MEDICATIONS: She is on no home prescribed medications at this time. ALLERGIES: NKDA. PHYSICAL EXAMINATION: Her vital signs on admission showed temperature 97.4F, pulse 62, respiratory rate 18 and blood pressure 129/90. O2 saturation 100%. HEENT: Normocephalic, atraumatic. Pupils equal round reactive to light. Extraocular movements intact. Oropharynx is pink and moist. NECK: Supple without lymphadenopathy, thyromegaly or JVD. CHEST: Clear to auscultation. HEART: Regular rate and rhythm. ABDOMEN: Diffusely tender particularly in the suprapubic area. No palpable masses were felt. EXTREMITIES: Without cyanosis, clubbing or edema. NEUROLOGIC: The patient is alert and oriented x3. LAB DATA AND TESTS: HCG was negative. Urine showed 26 to 50 white blood cells per high power field, was negative on nitrite however. Her white count was 4,700 but kandace to 10,600 by the next morning, hemoglobin 14.4, PLT count 246,000. Metabolic panel was entirely normal. Amylase and lipase were normal. Urine drug screen was positive for amphetamines and THC. The patient's urine Chlamydia and GC were negative. She had ultrasound of the abdomen and pelvis which showed the right ovary not to be seen, uterus was normal, bladder however showed echogenic debris. Gallbladder sonogram was essentially normal. She had CT scan otherwise showing some fluid distended small bowel loops with air fluid leveling. CT scan of abdomen and pelvis was otherwise negative. HOSPITAL COURSE: The patient was treated with morphine for pain, was given IV Rocephin and then oral Bactrim. By the next morning the patient was feeling much better. She was felt to be ready for discharge home. She was given Percocet for pain control and Bactrim DS for what was felt to be urinary tract infection. The patient has a culture still pending at this time. We will arrange follow up with urologist for evaluation of the echogenic debris found in the bladder as the source for the infection otherwise. The patient will be given an appointment to see me in follow up in the office in one week otherwise.
== END 2019-05-01 08:41 | disposition home or self-care (01) ==
LOC: ED 22:26 → MED SURG 04-30 02:50
PROVIDERS: ADMIT Family Medicine; ATTEND Family Medicine
DX: N39.0 Urinary tract infection, site not specified (principal)
CPT/HCPCS: 36000; 36415; 74176; 76705; 76856; 80053; 80307; 81001; 81025; 82150; 83690; 85025; 87077; 87086; 87186; 87491; 87591; 93268; 96360; 96365; 96372; 96374; 96376; 99285; G0378; 96375; J0696; J2270; J2550; A9270-GY

== ENCOUNTER 2019-07-26 21:11 | Emergency (ER) | payer OTHER ==
--- NOTE | 2019-07-26 21:36 | ERPHSYRPT ---
- History of Present Illness Time Seen by Provider: 07/26/19 21:35 Historian: patient, EMS Exam Limitations: no limitations Patient Subjective Stated Complaint: PT STATES THAT TODAY SHE WAS AT [facility] SHE BEGAN TO HAVE ABDOMINAL PAIN, PT WENT TO HER CAR AND PASSED OUT AND WOKE UP TO EMS STANDING OVER HER. PT STATES SHE FELT A GUSH OF BLOD Triage Nursing Assessment: PT ALERT AND ORIENTED, PT IN SEVERE PAIN RATES 10/ 10 AND IS GRIMACING. PT STATES SHE HAS HAD SIMILAR PAIN BEFORE BUT HAS NEVER FOUND OUT WHAT IT WAS CAUSED BY. Physician History: history of a similar abdominal pain in April. Patient came here and that her workup was negative. The patient says that the pain went away after that but came back a month ago periods the patient has been hurting for a month. She was at [facility] and the pain got very bad so she went to the car and patient says that she passed out because of the pain. Patient alert and oriented in the ER here. Timing/Duration: today Activities at Onset: activity Quality: cramping, sharpness, stabbing Abdominal Pain Onset Location: periumbilical, suprapubic Pain Radiation: no radiation Severity of Pain-Max: severe Severity of Pain-Current: severe Modifying Factors: Improves With: nothing Associated Symptoms: nausea, No back, No chest pain, No diaphoresis, No diarrhea , No fever/chills, No fatigue, No headache, No loss of appetite, No neck pain, No rash, No shortness of breath, No vomiting, No weakness Previous symptoms: same symptoms as today Allergies/Adverse Reactions: No Known Drug Allergies Allergy (Verified 07/26/19 21:32) Hx Tetanus, Diphtheria Vaccination/Date Given: Yes Hx Influenza Vaccination/Date Given: Yes (2016) Hx Pneumococcal Vaccination/Date Given: No - Review of Systems Constitutional: No Fever, No Chills Eyes: No Symptoms Ears, Nose, & Throat: No Symptoms Respiratory: No Cough, No Dyspnea Cardiac: No Chest Pain, No Edema, No Syncope Abdominal/Gastrointestinal: Abdominal Pain, Nausea, No Vomiting, No Diarrhea Genitourinary Symptoms: No Dysuria Musculoskeletal: No Back Pain, No Neck Pain Skin: No Rash Neurological: Other (syncope), No Dizziness, No Focal Weakness, No Sensory Changes Psychological: No Symptoms Endocrine: No Symptoms All Other Systems: Reviewed and Negative - Past Medical History Pertinent Past Medical History: No Neurological History: No Pertinent History ENT History: No Pertinent History Cardiac History: No Pertinent History Respiratory History: No Pertinent History Endocrine Medical History: No Pertinent History Musculoskeletal History: No Pertinent History GI Medical History: No Pertinent History History: No Pertinent History Psycho-Social History: Depression Female Reproductive Disorders: No Pertinent History Other Medical History: 2wk hospitalization at age 5 for e-coli - Past Surgical History Past Surgical History: No Neuro Surgical History: No Pertinent History Cardiac: No Pertinent History Respiratory: No Pertinent History Gastrointestinal: No Pertinent History Genitourinary: No Pertinent History Musculoskeletal: No Pertinent History Female Surgical History: No Pertinent History - Social History Smoking Status: Current every day smoker How long have you smoked: 4 YEARS Exposure to second hand smoke: No Drug Use: marijuana Patient Lives Alone: No - Female History Hx Last Menstrual Period: 06/19/19 Hx Now: No - Nursing Vital Signs Nursing Vital Signs: Initial Vital Signs Temperature 97.3 F 07/26/19 21:13 Pulse Rate 110 H 07/26/19 21:13 Respiratory Rate 18 07/26/19 21:13 Blood Pressure 175/107 07/26/19 21:13 O2 Sat by Pulse Oximetry 99 07/26/19 21:13 Pain Scale Pain Intensity 10 - Physical Exam General Appearance: no apparent distress, alert Eye Exam: PERRL/EOMI, eyes nml inspection Ears, Nose, Throat Exam: normal ENT inspection, pharynx normal, moist mucous membranes Neck Exam: normal inspection, non-tender, supple, full range of motion Respiratory Exam: normal breath sounds, lungs clear, No respiratory distress Cardiovascular Exam: regular rate/rhythm, normal heart sounds Gastrointestinal/Abdomen Exam: soft, tenderness (mild periumbilical and suprapubic tenderness, no rebound or guarding.), No mass Back Exam: normal inspection, normal range of motion, No CVA tenderness, No vertebral tenderness Extremity Exam: normal inspection, normal range of motion, pelvis stable Neurologic Exam: alert, 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, cooperative, normal mood/affect, nml cerebellar function, sensation nml, No motor deficits Skin Exam: normal color, warm, dry SpO2: 99 - Course EKG Interpreted by Me: RATE, Sinus Tach, NORMAL AXIS, NORMAL INTERVALS, NORMAL QRS, Q-wave, Non-specific ST Changes - CT Exams Head CT Interpretation: Tele-radiologist Report, Other (nnothing acute) Abdomen/Pelvis CT Interpretation: Tele-radiologist Report, Other (possible ovarian cyst.) Ordered Tests: Active Orders 24 hr Category Date Time Status EKG-ER Only STAT Care 07/26/19 21:42 Active IV Insertion STAT Care 07/26/19 21:35 Active ABDOMEN AND PELVIS W CONTRAST [CT] Stat Exams 07/26/19 22:55 Taken HEAD WITHOUT CONTRAST [CT] Stat Exams 07/26/19 21:43 Taken CBC W DIFF Stat Lab 07/26/19 22:00 Completed CMP Stat Lab 07/26/19 22:00 Completed CULTURE,URINE Stat Lab 07/26/19 21:55 Received HCG,QUALITATIVE URINE Stat Lab 07/26/19 21:55 Completed LIPASE Stat Lab 07/26/19 22:00 Received Lactic Acid Stat Lab 07/26/19 22:01 Completed TROPONIN Q3H Lab 07/26/19 22:00 Received UA W/RFX UR CULTURE Stat Lab 07/26/19 21:55 Completed Urine Triage Profile Stat Lab 07/26/19 21:55 Completed Medication Summary Discontinued Medications Generic Name Dose Route Start Last Admin Trade Name Ryneq PRN Reason Stop Dose Admin Sodium Chloride 1,000 mls @ 999 mls/hr 07/26/19 21:35 07/26/19 22:02 Sodium Chloride 0.9% 1000 Ml IV 07/26/19 22:35 999 mls/hr .Q1H1M STA Administration Sodium Chloride Confirm 07/26/19 22:00 Sodium Chloride 0.9% 1000 Ml Administered 07/26/19 22:01 Dose 1,000 mls @ ud .ROUTE .STK-MED ONE Morphine Sulfate 4 mg 07/26/19 21:35 07/26/19 22:12 Morphine Sulfate 4 Mg Inj IV 07/26/19 21:36 4 mg STAT ONE Administration Morphine Sulfate Confirm 07/26/19 22:11 Morphine Sulfate 4 Mg Inj Administered 07/26/19 22:12 Dose 4 mg .ROUTE .STK-MED ONE Morphine Sulfate Confirm 07/26/19 22:35 Morphine Sulfate 4 Mg Inj Administered 07/26/19 22:36 Dose 4 mg .ROUTE .STK-MED ONE Ondansetron HCl 4 mg 07/26/19 21:35 07/26/19 22:13 Zofran 4 Mg/2 Ml Vial IV 07/26/19 21:36 4 mg STAT ONE Administration Ondansetron HCl Confirm 07/26/19 22:11 Zofran 4 Mg/2 Ml Vial Administered 07/26/19 22:12 Dose 4 mg .ROUTE .STK-MED ONE Lab/Rad Data: Laboratory Result Diagrams 07/26/19 22:00 07/26/19 22:00 Laboratory Results 07/26/19 07/26/19 07/26/19 Range/Units 22:01 22:00 22:00 WBC 11.4 H (4.0-10.5) K/mm3 RBC 4.43 (4.1-5.4) M/mm3 Hgb 12.6 (12.0-16.0) gm/dl Hct 37.3 (35-47) % MCV 84.2 (78-100) fl MCH 28.4 (26-32) pg MCHC 33.8 (32-36) g/dl RDW 13.5 (11.5-14.0) % Plt Count 195 (150-450) K/mm3 MPV 9.8 H (6-9.5) fl Gran % 79.8 H (36.0-66.0) % Eos # (Auto) 0.14 (0-0.5) Absolute Lymphs (auto) 1.64 (1.0-4.6) Absolute Monos (auto) 0.51 (0.0-1.3) Lymphocytes % 14.4 L (24.0-44.0) % Monocytes % 4.5 (0.0-12.0) % Eosinophils % 1.2 (0.00-5.0) % Basophils % 0.1 (0.0-0.4) % Absolute Granulocytes 9.05 H (1.4-6.9) Basophils # 0.01 (0-0.4) Sodium 139 (137-145) mmol/L Potassium 4.0 (3.5-5.1) mmol/L Chloride 103 (98-107) mmol/L Carbon Dioxide 27 (22-30) mmol/L Anion Gap 13.3 (5-15) MEQ/L BUN 15 (7-17) mg/dL Creatinine 0.61 (0.52-1.04) mg/dL Estimated GFR > 60.0 ML/MIN Glucose 91 (74-106) mg/dL Lactic Acid 0.7 (0.4-2.0) Calcium 9.6 (8.4-10.2) mg/dL Total Bilirubin 0.90 (0.2-1.3) mg/dL AST 18 (14-36) U/L ALT 12 (0-35) U/L Alkaline Phosphatase 67 (38-126) U/L Serum Total Protein 7.3 (6.3-8.2) g/dL Albumin 4.2 (3.5-5.0) g/dL Urine Color (YELLOW) Urine Appearance (CLEAR) Urine pH (5-6) Ur Specific [place] (1.005-1.025) Urine Protein (Negative) Urine Ketones (NEGATIVE) Urine Blood (0-5) Michel/ul Urine Nitrite (NEGATIVE) Urine Bilirubin (NEGATIVE) Urine Urobilinogen (0-1) mg/dL Ur Leukocyte Esterase (NEGATIVE) Urine WBC (Auto) (0-5) /HPF Urine RBC (Auto) (0-2) /HPF U Epithel Cells (Auto) (FEW) /HPF Urine Bacteria (Auto) (NEGATIVE) /HPF Urine Mucus (Auto) (NEGATIVE) /HPF Urine Culture Reflexed (NO) Urine Glucose (NEGATIVE) mg/dL Urine HCG, Qual (Negative) Urine Opiates Level (NEGATIVE) Ur Methadone (NEGATIVE) Urine Barbiturates (NEGATIVE) Ur Phencyclidine (PCP) (NEGATIVE) Urine Amphetamine (NEGATIVE) U Benzodiazepine Level (NEGATIVE) Urine Cocaine (NEGATIVE) Urine Marijuana (THC) (NEGATIVE) 07/26/19 07/26/19 07/26/19 Range/Units 21:55 21:55 21:55 WBC (4.0-10.5) K/mm3 RBC (4.1-5.4) M/mm3 Hgb (12.0-16.0) gm/dl Hct (35-47) % MCV (78-100) fl MCH (26-32) pg MCHC (32-36) g/dl RDW (11.5-14.0) % Plt Count (150-450) K/mm3 MPV (6-9.5) fl Gran % (36.0-66.0) % Eos # (Auto) (0-0.5) Absolute Lymphs (auto) (1.0-4.6) Absolute Monos (auto) (0.0-1.3) Lymphocytes % (24.0-44.0) % Monocytes % (0.0-12.0) % Eosinophils % (0.00-5.0) % Basophils % (0.0-0.4) % Absolute Granulocytes (1.4-6.9) Basophils # (0-0.4) Sodium (137-145) mmol/L Potassium (3.5-5.1) mmol/L Chloride (98-107) mmol/L Carbon Dioxide (22-30) mmol/L Anion Gap (5-15) MEQ/L BUN (7-17) mg/dL Creatinine (0.52-1.04) mg/dL Estimated GFR ML/MIN Glucose (74-106) mg/dL Lactic Acid (0.4-2.0) Calcium (8.4-10.2) mg/dL Total Bilirubin (0.2-1.3) mg/dL AST (14-36) U/L ALT (0-35) U/L Alkaline Phosphatase (38-126) U/L Serum Total Protein (6.3-8.2) g/dL Albumin (3.5-5.0) g/dL Urine Color YELLOW (YELLOW) Urine Appearance SLIGHTLY CLOUDY (CLEAR) Urine pH 5.0 (5-6) Ur Specific [place] 1.020 (1.005-1.025) Urine Protein NEGATIVE (Negative) Urine Ketones NEGATIVE (NEGATIVE) Urine Blood NEGATIVE (0-5) Michel/ul Urine Nitrite NEGATIVE (NEGATIVE) Urine Bilirubin NEGATIVE (NEGATIVE) Urine Urobilinogen 2 (0-1) mg/dL Ur Leukocyte Esterase SMALL (NEGATIVE) Urine WBC (Auto) 6-10 (0-5) /HPF Urine RBC (Auto) 0-2 (0-2) /HPF U Epithel Cells (Auto) RARE (FEW) /HPF Urine Bacteria (Auto) RARE (NEGATIVE) /HPF Urine Mucus (Auto) MODERATE (NEGATIVE) /HPF Urine Culture Reflexed YES (NO) Urine Glucose NEGATIVE (NEGATIVE) mg/dL Urine HCG, Qual NEGATIVE (Negative) Urine Opiates Level NEGATIVE (NEGATIVE) Ur Methadone NEGATIVE (NEGATIVE) Urine Barbiturates NEGATIVE (NEGATIVE) Ur Phencyclidine (PCP) NEGATIVE (NEGATIVE) Urine Amphetamine POSITIVE (NEGATIVE) U Benzodiazepine Level POSITIVE (NEGATIVE) Urine Cocaine NEGATIVE (NEGATIVE) Urine Marijuana (THC) POSITIVE (NEGATIVE) - Progress Progress: improved Progress Note: 07/26/19 23:27 patient's a drug screen is positive for her mat, marijuana and that benzos. Discussed this with patient. Nothing acute on the CT scan. We'll discharge patient home. Counseled pt/family regarding: lab results, diagnosis, need for follow-up, rad results - Departure Departure Disposition: Home Clinical Impression: Substance abuse Abdominal pain Qualifiers: Abdominal location: generalized Qualified Code(s): R10.84 - Generalized abdominal pain Condition: Stable Critical Care Time: No Instructions: Acute Abdomen (Belly Pain), Polysubstance Abuse (DC) Additional Instructions: Sedataion warnings, do not drive
[2019-07-26] MEDS ORDERED: Sodium Chloride 0.9% 1000 ML 1,000 ML ONE (22:00)
[2019-07-26] MEDS: Sodium Chloride 0.9% 1000 ML 1,000 ML IV STA (22:02)
[2019-07-26 22:04] LABS: Absolute Neutrophil Ct (ANC) 9.05 (1.4-6.9); BASOPHIL % 0.1 % (0.0-0.4); Basophil (Absolute #) 0.01 (0-0.4); Eosinophil % 1.2 % (0.00-5.0); Eosinophil (Absolute #) 0.14 (0-0.5); Hematocrit 37.3 % (35-47); Hemoglobin 12.6 gm/dl (12.0-16.0); Lymphocyte (Absolute #) 1.64 (1.0-4.6); Lymphocytes % 14.4 % (24.0-44.0); Mean Cell Volume 84.2 fl (78-100); Mean Corpuscular Hemoglobin 28.4 pg (26-32); Mean Corpuscular Hgb Concent. 33.8 g/dl (32-36); Mean Platelet Volume 9.8 fl (6-9.5); Monocyte (Absolute #) 0.51 (0.0-1.3); Monocytes % 4.5 % (0.0-12.0); Neutrophil % 79.8 % (36.0-66.0); Platelet Count 195 K/mm3 (150-450); Red Blood Count 4.43 M/mm3 (4.1-5.4); Red Cell Distribution Width 13.5 % (11.5-14.0); White Blood Count 11.4 K/mm3 (4.0-10.5)
[2019-07-26 22:06] LABS: Appearance SLIGHTLY CLOUDY (CLEAR); Bacteria RARE /HPF (NEGATIVE); Bilirubin NEGATIVE (NEGATIVE); Blood NEGATIVE Ery/ul (0-5); Epithelial Cells RARE /HPF (FEW); Glucose NEGATIVE (NEGATIVE); Ketones NEGATIVE (NEGATIVE); Leukocyte Esterase SMALL (NEGATIVE); Mucus MODERATE /HPF (NEGATIVE); Nitrite NEGATIVE (NEGATIVE); Protein,Urine Dip NEGATIVE (Negative); RBC 0-2 /HPF (0-2); Urobilinogen 2 mg/dL (0-1)
[2019-07-26] MEDS ORDERED: MORPHINE SULFATE 4 MG INJ ONE ×2 (22:11→22:35)
[2019-07-26] MEDS ORDERED: Zofran 4 MG/2 ML VIAL ONE (22:11)
[2019-07-26] MEDS: MORPHINE SULFATE 4 MG INJ IV ONE (22:12)
[2019-07-26] MEDS: Zofran 4 MG/2 ML VIAL IV ONE (22:13)
[2019-07-26 22:17] LABS: Barbiturate,Urine NEGATIVE (NEGATIVE); Benzodiazepine,Urine POSITIVE (NEGATIVE); Cocaine,Urine NEGATIVE (NEGATIVE); Methadone,Urine NEGATIVE (NEGATIVE); Opiate,Urine NEGATIVE (NEGATIVE); PCP,Urine NEGATIVE (NEGATIVE); THC,Urine POSITIVE (NEGATIVE)
[2019-07-26 22:41] LABS: Amphetamine,Urine POSITIVE (NEGATIVE)
[2019-07-26 23:22] LABS: ALBUMIN 4.2 g/dL (3.5-5.0); ALKALINE PHOSPHATASE 67 U/L (38-126); ANION GAP 13.3 MEQ/L (5-15); BLOOD UREA NITROGEN 15 mg/dL (7-17); CHLORIDE 103 mmol/L (98-107); Calcium 9.6 mg/dL (8.4-10.2); Carbon Dioxide 27 mmol/L (22-30); Creatinine 1 0.61 mg/dL (0.52-1.04); Glucose 91 mg/dL (74-106); SGOT/AST 18 U/L (14-36); SGPT/ALT 12 U/L (0-35); SODIUM 139 mmol/L (137-145); Total Protein 7.3 g/dL (6.3-8.2)
[2019-07-27 00:05] VITALS: PULSE 115
[2019-07-27 01:18] VITALS: BP 148/87; O2SAT 98
--- NOTE | 2019-07-27 08:54 | XRAY ---
Indication: Abdomen/pelvic pain. Multiple contiguous axial images obtained through the abdomen and pelvis using 80 cc Isovue 370 contrast only. Comparison: April 30, 2019. Lung bases remain clear. Heart is not enlarged. Lack of enteric contrast and little peritoneal fat limits evaluation of the bowel loops. Noncontrasted stomach unremarkable. There is again small bowel in the pelvis that is fluid distended up to 2 cm with mild fluid leveling, ileus versus enteritis. Normal bowel gas in the colon. Left pelvis demonstrates new 4.4 cm cystic mass either ovary cyst versus distended bowel loop. No free fluid/air. Remaining liver, gallbladder, pancreas, spleen, adrenal glands, kidneys, ureters, bladder, uterus, and aorta appear unremarkable. No pathologic retroperitoneal lymphadenopathy. Osseous structures intact again with minimal dextroscoliosis. Impression: 1. Mild fluid distended small bowel loops in the pelvis as detailed, ileus versus enteritis. 2. New left pelvis 4.4 cm cystic mass either ovary in etiology versus distended bowel loop. Pelvic sonogram may yield further information. Comment: Preliminary interpretation was made by [facility]. No discrepancy. CT DI 2.75
--- NOTE | 2019-07-27 08:56 | XRAY ---
Indication: Syncope. Multiple contiguous axial images obtained through the head without contrast. Comparison: October 14, 2014. Again normal appearing brain parenchyma, ventricles, and bony calvarium. Mild/moderate mucosal thickening of the left maxillary sinus with tiny fluid leveling and mild mucosal thickening of both ethmoid sinuses. Mastoid air cells are clear. Impression: Paranasal sinus disease. Remaining CT head without contrast exam is normal. Comment: Preliminary interpretation was made by [facility]. No discrepancy. CTDI 61.14
== END 2019-07-27 01:22 | disposition home or self-care (01) ==
LOC: ED 21:11
DX: F19.10 Other psychoactive substance abuse, uncomplicated (principal); R10.84 Generalized abdominal pain
CPT/HCPCS: 36000; 36415; 70450; 74177; 80053; 80307; 81001; 83605; 83690; 84484; 84703; 85025; 87086; 93005; 96360; 96374; 96375; 99284; J2270; J2405

== ENCOUNTER 2019-09-11 06:11 | Day surgery (SDC) | payer OTHER ==
[2019-09-11] MEDS ORDERED: Sensorcaine 0.25% 10 ML ONE (06:29)
[2019-09-11] MEDS ORDERED: Lactated Ringers 1,000 ML IV SCH (06:30)
[2019-09-11] MEDS ORDERED: Quelicin Fliptop 200 MG/10 ML ONE (07:01)
[2019-09-11] MEDS ORDERED: DIPRIVAN 200 MG/20 ML IV ONE (07:01)
[2019-09-11] MEDS ORDERED: SUBLIMAZE 100 MCG/2 ML ONE ×3 (07:01→08:56)
[2019-09-11] MEDS ORDERED: Zemuron 100 MG/10 ML ONE (07:01)
[2019-09-11] MEDS ORDERED: Decadron 4 MG INJ ONE (07:12)
[2019-09-11] MEDS ORDERED: BRIDION 200MG/2ML IV ONE (07:12)
[2019-09-11] MEDS ORDERED: Zofran 4 MG/2 ML VIAL ONE (07:12)
[2019-09-11] MEDS ORDERED: TORAdol 30 mg Injection ONE (07:12)
[2019-09-11] MEDS ORDERED: Lactated Ringers 1,000 ML IV ONE ×2 (07:29→08:56)
[2019-09-11] MEDS ORDERED: APRESOLINE 20 MG/ML INJ ONE (09:12)
[2019-09-11] MEDS ORDERED: DILAUDID 2 MG INJECTION ONE (09:28)
[2019-09-11] MEDS ORDERED: BENADRYL 50 MG/ML ONE (10:26)
[2019-09-11] MEDS ORDERED: BENADRYL 50 MG/ML IV PRN (10:30)
[2019-09-11 11:20] VITALS: O2SAT 98
[2019-09-11 11:42] LABS: Appearance SLIGHTLY CLOUDY (CLEAR); Bacteria RARE /HPF (NEGATIVE); Bilirubin NEGATIVE (NEGATIVE); Blood NEGATIVE Ery/ul (0-5); Epithelial Cells RARE /HPF (FEW); Glucose NEGATIVE (NEGATIVE); Ketones NEGATIVE (NEGATIVE); Leukocyte Esterase TRACE (NEGATIVE); Mucus MANY /HPF (NEGATIVE); Nitrite NEGATIVE (NEGATIVE); Protein,Urine Dip 30 (Negative); Specific Gravity 1.028 (1.005-1.025); Urobilinogen 4 mg/dL (0-1)
[2019-09-11 11:57] VITALS: BP 130/74; PULSE 78
--- NOTE | 2019-09-13 09:52 | OP ---
SURGERY DATE: 09/11/19 SURGERY TIME: 0700 PREOPERATIVE DIAGNOSIS: 1. PELVIC PAIN. 2. LEFT OVARIAN CYST. POSTOPERATIVE DIAGNOSIS: 1. PELVIC PAIN WITH LEFT OVARIAN HEMORRHAGIC CYST. PROCEDURE: 1. Diagnostic laparoscopy. 2. Left ovarian cystectomy. 3. Lysis of pelvic adhesion. SURGEON: Dr. Kasi De Paz. LINUX UNIX ADMINISTRATOR: Jose. ANESTHESIA: General. ESTIMATED BLOOD LOSS: 100 cc. COMPLICATIONS: None. FINDINGS: The risks, benefits, indications, and alternatives of the procedure were reviewed with the patient prior to the procedure. Patient understood the risk of infection, bleeding, bowel injury, bladder injury, ureteral injury, incisional hernia, and pelvic infection as a result of the surgery. However, desires to have the surgery as a possible need to alleviate her current medical condition. DESCRIPTION OF PROCEDURE AND FINDINGS: At this point, the patient was taken to the operating room, given general anesthesia, placed in the supine position where general anesthesia was given without complication. At this point, a 5 mm incision was made approximately 1-2 cm above the umbilicus where a 5 mm trocar and sleeve were advanced under direct visualization where pneumoperitoneum was obtained with 4 liters of CO2 gas. Visualization of the pelvic region appeared for her to have an ovarian cyst located on the left side that was adhesed to the left border of the frontal region of the uterus in the cul-de-sac. At this point, an additional incision was made in the left middle quadrant region where a 5 mm skin incision was made and a 5 mm trocar and sleeve were advanced under direct visualization. An additional 5 mm trocar and sleeve was placed 2 cm above the symphysis pubis midline where a 5 mm trocar and sleeve were advanced under direct visualization as well. From this point, the LigaSure was then used to dissect the adhesion between the left frontal region of the uterus and the left ovarian cystic region where adhesions were lysed and a circumferential incision was made with the J loop private branch exchange operator and was done so without a complication. From this point, as the J loop entered the cystic region, bloody fluid was then released and the suction aeronautical engineering professor was used to suction the bloody fluid. From this point, the LigaSure was then used to excise the cystic region from the ovarian portion and the thinner cystic region was then dissected off the base of the ovarian portion and was done so without complication and a Kleppinger was used to coagulate the base of the ovarian region where the cystic portion was removed and was done so without complication. From this point, the left ovary appeared to be within normal limits after complete removal of the cystic region. However, it did appear that the left adnexa was adhered to the left abdominal sidewall. The right adnexa appeared to be within normal limits with no abnormalities that were noted. The remainder of the abdominal region appeared to be within normal limits. At this point, fibrillar was used for the minimal bleeding that was noted at the edge of the ovarian portion site and at this point, there was no bleeding that was noted upon completion. After irrigation was made, again there was no bleeding that was noted. At this point, all instruments were removed from the abdominal region. The cystic portion of the ovary appeared to be approximately 4 X 3 cm in dimension. As mentioned, the instruments were then removed from the abdominal region and the incision sites were closed with 4-0 Monocryl suture with subsequent Dermabond on each incisional site. The patient was then taken out of anesthesia and was taken to the recovery room in stable condition. All instruments and laps were accounted for X 2.
== END 2019-09-11 11:15 | disposition home or self-care (01) ==
LOC: SDC 06:11 → EDSTATUS 09:14 → SDC 11:15
PROVIDERS: ATTEND Obstetrics & Gynecology
DX: N83.292 Other ovarian cyst, left side (principal); R10.2 Pelvic and perineal pain; N73.6 Female pelvic peritoneal adhesions (postinfective)
CPT/HCPCS: 81001; 84703; 87086; 88304; 88305; J0330; J0360; J1100; J1170; J1200; J1885; J2405; J2704; J3010

== ENCOUNTER 2019-10-22 03:03 | Emergency (ER) | payer OTHER ==
--- NOTE | 2019-10-22 03:52 | ERPHSYRPT ---
- History of Present Illness Source: patient, other (Friend) Exam Limitations: no limitations Timing/Duration: gradual onset, other (Roughly x 1 month) Severity of Symptoms-Max: severe Severity of Symptoms-Current: severe Context related to: other (Possible DSS involvement wth her kids.) Suicidal thoughts: specific plan (hanging, OD) Associated Symptoms: anxiety, depressed Previous symptoms: same symptoms as today, no recent treatment Hx Tetanus, Diphtheria Vaccination/Date Given: Yes Hx Influenza Vaccination/Date Given: Yes (2016) Hx Pneumococcal Vaccination/Date Given: No - History of Present Illness Time Seen by Provider: 10/22/19 03:12 Allergies/Adverse Reactions: No Known Drug Allergies Allergy (Verified 10/22/19 03:17) Home Medications: No Reportable Medications [No Reported Medications] 10/22/19 [History] - Past Medical History Pertinent Past Medical History: No Neurological History: No Pertinent History ENT History: No Pertinent History Cardiac History: Angina Respiratory History: No Pertinent History Endocrine Medical History: No Pertinent History Musculoskeletal History: No Pertinent History GI Medical History: No Pertinent History History: No Pertinent History Psycho-Social History: Anxiety, Depression Female Reproductive Disorders: No Pertinent History Other Medical History: 2wk hospitalization at age 5 for e-coli. recent angina ( from fingers to elbow) had recent EKG,september with normal ekg - Past Surgical History Past Surgical History: No Neuro Surgical History: No Pertinent History Cardiac: No Pertinent History Respiratory: No Pertinent History Gastrointestinal: No Pertinent History Genitourinary: No Pertinent History Musculoskeletal: No Pertinent History Female Surgical History: No Pertinent History - Social History Smoking Status: Current every day smoker How long have you smoked: 4 YEARS Exposure to second hand smoke: No Drug Use: marijuana Patient Lives Alone: No - Review of Systems Constitutional: No Fever, No Chills Eyes: No Symptoms Ears, Nose, & Throat: No Symptoms Respiratory: No Cough, No Dyspnea Cardiac: No Chest Pain, No Edema, No Syncope Abdominal/Gastrointestinal: Abdominal Pain (Chronic issue, recent ovarian cyst removal), No Nausea, No Vomiting, No Diarrhea Genitourinary Symptoms: No Dysuria Musculoskeletal: No Back Pain, No Neck Pain Skin: No Rash Neurological: No Dizziness, No Focal Weakness, No Sensory Changes Psychological: Anxiety, Depression, Suicidal Ideations Endocrine: No Symptoms All Other Systems: Reviewed and Negative - Physical Exam General Appearance: no apparent distress Eyes, Ears, Nose, Throat Exam: normal ENT inspection, moist mucous membranes Neck Exam: normal inspection, non-tender, supple Respiratory Exam: normal breath sounds, lungs clear, No respiratory distress Cardiovascular Exam: regular rate/rhythm, No edema Gastrointestinal/Abdominal Exam: soft, No tenderness, No distention Extremities Exam: normal inspection, normal range of motion, No evidence of injury, No edema Current Suicidality: denies suicide plan Neurological Exam: alert, engine 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 II-XII nml as tested, 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 Appearance: appropriate appearance Behavior/Eye Contact/Speech: alert & cooperative, good eye contact, normal speech Thoughts/Hallucinations: normal thought pattern, no apparent hallucination, auditory hallucinations Skin Exam: normal color, warm, dry, No rash - Nursing Vital Signs Nursing Vital Signs: Initial Vital Signs Temperature 97.5 F 10/22/19 03:55 Pulse Rate 94 H 10/22/19 03:55 Respiratory Rate 20 10/22/19 03:55 Blood Pressure 152/122 10/22/19 03:55 O2 Sat by Pulse Oximetry 100 10/22/19 03:55 Pain Scale Pain Intensity 0 - Course Nursing assessment & vital signs reviewed: Yes Ordered Tests: Active Orders 24 hr Category Date Time Status Clean Catch Urine Specimen STAT Care 10/22/19 03:49 Active Regular Diet Diet 10/22/19 Lunch Active ACETAMINOPHEN Stat Lab 10/22/19 04:20 Completed CBC W DIFF Stat Lab 10/22/19 04:20 Completed CMP Stat Lab 10/22/19 04:20 Completed ETHYL ALCOHOL Stat Lab 10/22/19 04:20 Completed HCG,QUALITATIVE URINE Stat Lab 10/22/19 04:19 Completed SALICYLATE Stat Lab 10/22/19 04:20 Completed UA W/RFX UR CULTURE Stat Lab 10/22/19 04:19 Completed Urine Triage Profile Stat Lab 10/22/19 04:19 Completed Lab/Rad Data: Laboratory Result Diagrams 10/22/19 04:20 10/22/19 04:20 Laboratory Results 10/22/19 10/22/19 10/22/19 Range/Units 04:20 04:20 04:19 WBC 6.3 (4.0-10.5) K/mm3 RBC 4.54 (4.1-5.4) M/mm3 Hgb 12.6 (12.0-16.0) gm/dl Hct 37.4 (35-47) % MCV 82.4 (78-100) fl MCH 27.8 (26-32) pg MCHC 33.7 (32-36) g/dl RDW 13.3 (11.5-14.0) % Plt Count 273 (150-450) K/mm3 MPV 9.3 (7.5-11.0) fl Gran % 48.1 (36.0-66.0) % Eos # (Auto) 0.20 (0-0.5) Absolute Lymphs (auto) 2.36 (1.0-4.6) Absolute Monos (auto) 0.68 (0.0-1.3) Lymphocytes % 37.6 (24.0-44.0) % Monocytes % 10.8 (0.0-12.0) % Eosinophils % 3.2 (0.00-5.0) % Basophils % 0.3 (0.0-0.4) % Absolute Granulocytes 3.01 (1.4-6.9) Basophils # 0.02 (0-0.4) Sodium 139 (137-145) mmol/L Potassium 3.6 (3.5-5.1) mmol/L Chloride 104 (98-107) mmol/L Carbon Dioxide 27 (22-30) mmol/L Anion Gap 12.4 (5-15) MEQ/L BUN 21 H (7-17) mg/dL Creatinine 0.65 (0.52-1.04) mg/dL Estimated GFR > 60.0 ML/MIN Glucose 90 (74-106) mg/dL Calcium 9.7 (8.4-10.2) mg/dL Total Bilirubin 0.50 (0.2-1.3) mg/dL AST 21 (14-36) U/L ALT 11 (0-35) U/L Alkaline Phosphatase 74 (38-126) U/L Serum Total Protein 7.7 (6.3-8.2) g/dL Albumin 4.5 (3.5-5.0) g/dL Urine Color (YELLOW) Urine Appearance (CLEAR) Urine pH (5-6) Ur Specific [place] (1.005-1.025) Urine Protein (Negative) Urine Ketones (NEGATIVE) Urine Blood (0-5) Michel/ul Urine Nitrite (NEGATIVE) Urine Bilirubin (NEGATIVE) Urine Urobilinogen (0-1) mg/dL Ur Leukocyte Esterase (NEGATIVE) Urine WBC (Auto) (0-5) /HPF Urine RBC (Auto) (0-2) /HPF U Epithel Cells (Auto) (FEW) /HPF Urine Bacteria (Auto) (NEGATIVE) /HPF Urine Mucus (Auto) (NEGATIVE) /HPF Urine Culture Reflexed (NO) Urine Glucose (NEGATIVE) mg/dL Urine HCG, Qual (Negative) Salicylates < 1.0 L (2-20) mg/dL Urine Opiates Level NEGATIVE (NEGATIVE) Ur Methadone NEGATIVE (NEGATIVE) Acetaminophen < 10 L (10-30) ug/ml Urine Barbiturates NEGATIVE (NEGATIVE) Ur Phencyclidine (PCP) NEGATIVE (NEGATIVE) Urine Amphetamine NEGATIVE (NEGATIVE) U Benzodiazepine Level POSITIVE (NEGATIVE) Urine Cocaine NEGATIVE (NEGATIVE) Urine Marijuana (THC) POSITIVE (NEGATIVE) Ethyl Alcohol < 10 (0-10) mg/dL 10/22/19 10/22/19 Range/Units 04:19 04:19 WBC (4.0-10.5) K/mm3 RBC (4.1-5.4) M/mm3 Hgb (12.0-16.0) gm/dl Hct (35-47) % MCV (78-100) fl MCH (26-32) pg MCHC (32-36) g/dl RDW (11.5-14.0) % Plt Count (150-450) K/mm3 MPV (7.5-11.0) fl Gran % (36.0-66.0) % Eos # (Auto) (0-0.5) Absolute Lymphs (auto) (1.0-4.6) Absolute Monos (auto) (0.0-1.3) Lymphocytes % (24.0-44.0) % Monocytes % (0.0-12.0) % Eosinophils % (0.00-5.0) % Basophils % (0.0-0.4) % Absolute Granulocytes (1.4-6.9) Basophils # (0-0.4) Sodium (137-145) mmol/L Potassium (3.5-5.1) mmol/L Chloride (98-107) mmol/L Carbon Dioxide (22-30) mmol/L Anion Gap (5-15) MEQ/L BUN (7-17) mg/dL Creatinine (0.52-1.04) mg/dL Estimated GFR ML/MIN Glucose (74-106) mg/dL Calcium (8.4-10.2) mg/dL Total Bilirubin (0.2-1.3) mg/dL AST (14-36) U/L ALT (0-35) U/L Alkaline Phosphatase (38-126) U/L Serum Total Protein (6.3-8.2) g/dL Albumin (3.5-5.0) g/dL Urine Color YELLOW (YELLOW) Urine Appearance SLIGHTLY CLOUDY (CLEAR) Urine pH 5.0 (5-6) Ur Specific [place] 1.027 (1.005-1.025) Urine Protein NEGATIVE (Negative) Urine Ketones NEGATIVE (NEGATIVE) Urine Blood NEGATIVE (0-5) Michel/ul Urine Nitrite NEGATIVE (NEGATIVE) Urine Bilirubin NEGATIVE (NEGATIVE) Urine Urobilinogen 2 (0-1) mg/dL Ur Leukocyte Esterase MODERATE (NEGATIVE) Urine WBC (Auto) 6-10 (0-5) /HPF Urine RBC (Auto) 3-5 (0-2) /HPF U Epithel Cells (Auto) RARE (FEW) /HPF Urine Bacteria (Auto) NONE (NEGATIVE) /HPF Urine Mucus (Auto) MANY (NEGATIVE) /HPF Urine Culture Reflexed NO (NO) Urine Glucose NEGATIVE (NEGATIVE) mg/dL Urine HCG, Qual NEGATIVE (Negative) Salicylates (2-20) mg/dL Urine Opiates Level (NEGATIVE) Ur Methadone (NEGATIVE) Acetaminophen (10-30) ug/ml Urine Barbiturates (NEGATIVE) Ur Phencyclidine (PCP) (NEGATIVE) Urine Amphetamine (NEGATIVE) U Benzodiazepine Level (NEGATIVE) Urine Cocaine (NEGATIVE) Urine Marijuana (THC) (NEGATIVE) Ethyl Alcohol (0-10) mg/dL - Progress Progress: improved Counseled pt/family regarding: lab results, diagnosis - Progress Progress Note: 10/22/19 06:13 Pt is medically cleared. Will need psych eval and/or inpatient psych care for her SI. Pt agrees to inpatient psych admission. 10/22/19 06:32 Paperwork has been faxed to [facility] and awaiting response. 10/22/19 06:32 Pt's care has been transferred to oncoming physician Dr. Paiz ([facility]) 10/22/19 10:54 pt desires inpt management. she freely is willing to be transferred. pt is accepted by dr. olmstead ([facility]) - Departure Departure Disposition: Transfer Critical Care Time: No - Departure Clinical Impression: Suicidal ideation Condition: Stable Referrals: LIAN REYES [Primary Care Provider] -
[2019-10-22 04:22] LABS: Absolute Neutrophil Ct (ANC) 3.01 (1.4-6.9); BASOPHIL % 0.3 % (0.0-0.4); Basophil (Absolute #) 0.02 (0-0.4); Eosinophil % 3.2 % (0.00-5.0); Hematocrit 37.4 % (35-47); Hemoglobin 12.6 gm/dl (12.0-16.0); Lymphocyte (Absolute #) 2.36 (1.0-4.6); Lymphocytes % 37.6 % (24.0-44.0); Mean Cell Volume 82.4 fl (78-100); Mean Corpuscular Hemoglobin 27.8 pg (26-32); Mean Corpuscular Hgb Concent. 33.7 g/dl (32-36); Mean Platelet Volume 9.3 fl (7.5-11.0); Monocyte (Absolute #) 0.68 (0.0-1.3); Monocytes % 10.8 % (0.0-12.0); Neutrophil % 48.1 % (36.0-66.0); Platelet Count 273 K/mm3 (150-450); Red Blood Count 4.54 M/mm3 (4.1-5.4); Red Cell Distribution Width 13.3 % (11.5-14.0); White Blood Count 6.3 K/mm3 (4.0-10.5)
[2019-10-22 04:34] LABS: Appearance SLIGHTLY CLOUDY (CLEAR); Bilirubin NEGATIVE (NEGATIVE); Blood NEGATIVE Ery/ul (0-5); Epithelial Cells RARE /HPF (FEW); Glucose NEGATIVE (NEGATIVE); Ketones NEGATIVE (NEGATIVE); Leukocyte Esterase MODERATE (NEGATIVE); Mucus MANY /HPF (NEGATIVE); Nitrite NEGATIVE (NEGATIVE); Protein,Urine Dip NEGATIVE (Negative); Specific Gravity 1.027 (1.005-1.025); Urobilinogen 2 mg/dL (0-1)
[2019-10-22 04:34] LABS: ALBUMIN 4.5 g/dL (3.5-5.0); ALKALINE PHOSPHATASE 74 U/L (38-126); ANION GAP 12.4 MEQ/L (5-15); BLOOD UREA NITROGEN 21 mg/dL (7-17); CHLORIDE 104 mmol/L (98-107); Calcium 9.7 mg/dL (8.4-10.2); Carbon Dioxide 27 mmol/L (22-30); Creatinine 1 0.65 mg/dL (0.52-1.04); Glucose 90 mg/dL (74-106); Potassium 3.6 mmol/L (3.5-5.1); SGOT/AST 21 U/L (14-36); SGPT/ALT 11 U/L (0-35); SODIUM 139 mmol/L (137-145); Total Protein 7.7 g/dL (6.3-8.2)
[2019-10-22 04:38] LABS: ACETAMINOPHEN < 10 ug/ml (10-30); ETHYL ALCOHOL < 10 mg/dL (0-10); SALICYLATE < 1.0 mg/dL (2-20)
[2019-10-22 04:46] LABS: Amphetamine,Urine NEGATIVE (NEGATIVE); Barbiturate,Urine NEGATIVE (NEGATIVE); Benzodiazepine,Urine POSITIVE (NEGATIVE); Cocaine,Urine NEGATIVE (NEGATIVE); Methadone,Urine NEGATIVE (NEGATIVE); Opiate,Urine NEGATIVE (NEGATIVE); PCP,Urine NEGATIVE (NEGATIVE); THC,Urine POSITIVE (NEGATIVE)
[2019-10-22 09:48] VITALS: O2SAT 100
[2019-10-22 10:44] VITALS: PULSE 105
[2019-10-22 11:19] VITALS: BP 149/88
== END 2019-10-22 11:44 | disposition short-term general hospital (02) ==
LOC: ED 03:03
DX: R45.851 Suicidal ideations (principal)
CPT/HCPCS: 36415; 80053; 80307; 81001; 84703; 85025; 99285; G0480; G0481

== ENCOUNTER 2019-11-23 23:36 | Emergency (ER) | payer OTHER ==
[2019-11-24] MEDS ORDERED: Zofran 4 MG/2 ML VIAL IV ONE (00:06)
[2019-11-24] MEDS ORDERED: SUBLIMAZE 100 MCG/2 ML IV ONE (00:06)
[2019-11-24] MEDS ORDERED: Sodium Chloride 0.9% 1000 ML 1,000 ML IV STA (00:06)
[2019-11-24] MEDS ORDERED: Sodium Chloride 0.9% 1000 ML 1,000 ML ONE (00:10)
[2019-11-24] MEDS ORDERED: SUBLIMAZE 100 MCG/2 ML ONE (00:11)
[2019-11-24] MEDS ORDERED: Zofran 4 MG/2 ML VIAL ONE (00:11)
[2019-11-24 00:17] LABS: Absolute Neutrophil Ct (ANC) 5.47 (1.4-6.9); BASOPHIL % 0.2 % (0.0-0.4); Basophil (Absolute #) 0.02 (0-0.4); Eosinophil % 2.8 % (0.00-5.0); Eosinophil (Absolute #) 0.28 (0-0.5); Hematocrit 38.9 % (35-47); Lymphocyte (Absolute #) 3.28 (1.0-4.6); Lymphocytes % 33.3 % (24.0-44.0); Mean Cell Volume 82.1 fl (78-100); Mean Corpuscular Hemoglobin 27.4 pg (26-32); Mean Corpuscular Hgb Concent. 33.4 g/dl (32-36); Mean Platelet Volume 9.8 fl (7.5-11.0); Monocyte (Absolute #) 0.79 (0.0-1.3); Neutrophil % 55.7 % (36.0-66.0); Platelet Count 293 K/mm3 (150-450); Red Blood Count 4.74 M/mm3 (4.1-5.4); Red Cell Distribution Width 13.7 % (11.5-14.0); White Blood Count 9.8 K/mm3 (4.0-10.5)
[2019-11-24 00:23] LABS: ALBUMIN 4.2 g/dL (3.5-5.0); ALKALINE PHOSPHATASE 69 U/L (38-126); AMYLASE 79 U/L (30-110); BLOOD UREA NITROGEN 12 mg/dL (7-17); CHLORIDE 105 mmol/L (98-107); Calcium 9.2 mg/dL (8.4-10.2); Carbon Dioxide 28 mmol/L (22-30); Creatinine 1 0.63 mg/dL (0.52-1.04); Glucose 102 mg/dL (74-106); LIPASE 94 U/L (23-300); Potassium 3.9 mmol/L (3.5-5.1); SGOT/AST 20 U/L (14-36); SGPT/ALT 11 U/L (0-35); SODIUM 139 mmol/L (137-145); Total Protein 7.4 g/dL (6.3-8.2)
--- NOTE | 2019-11-24 00:25 | ERPHSYRPT ---
- History of Present Illness Time Seen by Provider: 11/24/19 00:24 Historian: patient Exam Limitations: no limitations Patient Subjective Stated Complaint: Patient states " I was sleeping and then my stomach started hurting very badly". Patient states " The pain is all in the center of my belly". Patient states " The pain is so bad it woke me up from sleep". Triage Nursing Assessment: Patient arrived to ER per family member. Patient was in W/C in waiting room. Patient crying out loudly. Patient holding ABD. Patient transfered self to bed. Patient A/O times 4. Patient answers questions appropriatley. Patient continues to hold ABD. ABD with hypo-active BS times 4 quads. ABD flat, soft, non-distended. Patient denies pain upon palpitation of ABD. Patient denies N/V. Patient denies loose stools. Patient stated she last ate around 1900 yesterday evening. Patient denies SOB. Patient denies chest pain. Upon palpitation no abnormalities noted. Patient started monthly cycle yesterday and does have HX of cyst. Patient denies flank pain or radiating pain. Physician History: Patient states " I was sleeping and then my stomach started hurting very badly" . Patient states " The pain is all in the center of my belly". Patient states " The pain is so bad it woke me up from sleep". Timing/Duration: today Activities at Onset: none Quality: cramping Abdominal Pain Onset Location: periumbilical Pain Radiation: no radiation Severity of Pain-Max: severe Severity of Pain-Current: severe Modifying Factors: Improves With: nothing Associated Symptoms: denies symptoms Previous symptoms: same symptoms as today Allergies/Adverse Reactions: No Known Drug Allergies Allergy (Verified 10/22/19 03:17) Hx Tetanus, Diphtheria Vaccination/Date Given: Yes Hx Influenza Vaccination/Date Given: Yes Hx Pneumococcal Vaccination/Date Given: No Immunizations Up to Date: Yes - Review of Systems Constitutional: No Fever, No Chills Eyes: No Symptoms Ears, Nose, & Throat: No Symptoms Respiratory: No Cough, No Dyspnea Cardiac: No Chest Pain, No Edema, No Syncope Abdominal/Gastrointestinal: Abdominal Pain, No Nausea, No Vomiting, No Diarrhea Genitourinary Symptoms: No Dysuria Musculoskeletal: No Back Pain, No Neck Pain Skin: No Rash Neurological: No Dizziness, No Focal Weakness, No Sensory Changes Psychological: No Symptoms Endocrine: No Symptoms All Other Systems: Reviewed and Negative - Past Medical History Pertinent Past Medical History: No Neurological History: No Pertinent History ENT History: No Pertinent History Cardiac History: Angina Respiratory History: No Pertinent History Endocrine Medical History: No Pertinent History Musculoskeletal History: No Pertinent History GI Medical History: No Pertinent History History: No Pertinent History Psycho-Social History: Anxiety, Depression Female Reproductive Disorders: No Pertinent History Other Medical History: 2wk hospitalization at age 5 for e-coli. recent angina ( from fingers to elbow) had recent EKG,september with normal ekg - Past Surgical History Past Surgical History: No Neuro Surgical History: No Pertinent History Cardiac: No Pertinent History Respiratory: No Pertinent History Gastrointestinal: No Pertinent History Genitourinary: No Pertinent History Musculoskeletal: No Pertinent History Female Surgical History: No Pertinent History Other Surgical History: Cyst removed from left ovary 09/18/19 - Social History Smoking Status: Current every day smoker How long have you smoked: 9 years Exposure to second hand smoke: Yes Drug Use: marijuana Patient Lives Alone: No - Female History Hx Last Menstrual Period: 11/22/19 Hx Now: No - Nursing Vital Signs Nursing Vital Signs: Initial Vital Signs Temperature 97.8 F 11/23/19 23:56 Pulse Rate 98 H 11/23/19 23:56 Respiratory Rate 20 11/23/19 23:56 Blood Pressure 149/110 11/23/19 23:56 O2 Sat by Pulse Oximetry 100 11/23/19 23:56 Pain Scale Pain Intensity 8 - Physical Exam General Appearance: no apparent distress, alert Eye Exam: PERRL/EOMI, eyes nml inspection Ears, Nose, Throat Exam: normal ENT inspection, pharynx normal, moist mucous membranes Neck Exam: normal inspection, non-tender, supple, full range of motion Respiratory Exam: normal breath sounds, lungs clear, No respiratory distress Cardiovascular Exam: regular rate/rhythm, normal heart sounds Gastrointestinal/Abdomen Exam: soft, tenderness, No mass Pelvic Exam: not done Rectal Exam: deferred Back Exam: normal inspection, normal range of motion, No CVA tenderness, No vertebral tenderness Extremity Exam: normal inspection, normal range of motion, pelvis stable Neurologic Exam: alert, 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, cooperative, normal mood/affect, nml cerebellar function, sensation nml, No motor deficits Skin Exam: normal color, warm, dry SpO2: 100 Ordered Tests: Active Orders 24 hr Category Date Time Status ABDOMEN AND PELVIS W/0 CONTRAS [CT] Stat Exams 11/24/19 00:07 Ordered AMYLASE Stat Lab 11/24/19 00:00 Completed CBC W DIFF Stat Lab 11/24/19 00:00 Completed CMP Stat Lab 11/24/19 00:00 Completed LIPASE Stat Lab 11/24/19 00:00 Completed UA W/RFX UR CULTURE Stat Lab 11/24/19 00:07 Uncollected Medication Summary Discontinued Medications Generic Name Dose Route Start Last Admin Trade Name Princess PRN Reason Stop Dose Admin Fentanyl Citrate 50 mcg 11/24/19 00:06 11/24/19 00:16 Sublimaze 100 Mcg/2 Ml IV 11/24/19 00:07 50 mcg STAT ONE Administration Fentanyl Citrate Confirm 11/24/19 00:11 Sublimaze 100 Mcg/2 Ml Administered 11/24/19 00:12 Dose 100 mcg .ROUTE .STK-MED ONE Sodium Chloride 1,000 mls @ 999 mls/hr 11/24/19 00:06 11/24/19 00:16 Sodium Chloride 0.9% 1000 Ml IV 11/24/19 01:06 999 mls/hr .Q1H1M STA Administration Sodium Chloride Confirm 11/24/19 00:10 Sodium Chloride 0.9% 1000 Ml Administered 11/24/19 00:11 Dose 1,000 mls @ ud .ROUTE .STK-MED ONE Morphine Sulfate 4 mg 11/24/19 00:42 11/24/19 00:47 Morphine Sulfate 4 Mg Inj IV 11/24/19 00:43 4 mg STAT ONE Administration Morphine Sulfate Confirm 11/24/19 00:44 Morphine Sulfate 4 Mg Inj Administered 11/24/19 00:45 Dose 4 mg .ROUTE .STK-MED ONE Ondansetron HCl 4 mg 11/24/19 00:06 11/24/19 00:17 Zofran 4 Mg/2 Ml Vial IV 11/24/19 00:07 4 mg STAT ONE Administration Ondansetron HCl Confirm 11/24/19 00:11 Zofran 4 Mg/2 Ml Vial Administered 11/24/19 00:12 Dose 4 mg .ROUTE .STK-MED ONE Lab/Rad Data: Laboratory Result Diagrams 11/24/19 00:00 11/24/19 00:00 Laboratory Results 11/24/19 11/24/19 Range/Units 00:00 00:00 WBC 9.8 (4.0-10.5) K/mm3 RBC 4.74 (4.1-5.4) M/mm3 Hgb 13.0 (12.0-16.0) gm/dl Hct 38.9 (35-47) % MCV 82.1 (78-100) fl MCH 27.4 (26-32) pg MCHC 33.4 (32-36) g/dl RDW 13.7 (11.5-14.0) % Plt Count 293 (150-450) K/mm3 MPV 9.8 (7.5-11.0) fl Gran % 55.7 (36.0-66.0) % Eos # (Auto) 0.28 (0-0.5) Absolute Lymphs (auto) 3.28 (1.0-4.6) Absolute Monos (auto) 0.79 (0.0-1.3) Lymphocytes % 33.3 (24.0-44.0) % Monocytes % 8.0 (0.0-12.0) % Eosinophils % 2.8 (0.00-5.0) % Basophils % 0.2 (0.0-0.4) % Absolute Granulocytes 5.47 (1.4-6.9) Basophils # 0.02 (0-0.4) Sodium 139 (137-145) mmol/L Potassium 3.9 (3.5-5.1) mmol/L Chloride 105 (98-107) mmol/L Carbon Dioxide 28 (22-30) mmol/L Anion Gap 10.0 (5-15) MEQ/L BUN 12 (7-17) mg/dL Creatinine 0.63 (0.52-1.04) mg/dL Estimated GFR > 60.0 ML/MIN Glucose 102 (74-106) mg/dL Calcium 9.2 (8.4-10.2) mg/dL Total Bilirubin 0.40 (0.2-1.3) mg/dL AST 20 (14-36) U/L ALT 11 (0-35) U/L Alkaline Phosphatase 69 (38-126) U/L Serum Total Protein 7.4 (6.3-8.2) g/dL Albumin 4.2 (3.5-5.0) g/dL Amylase 79 (30-110) U/L Lipase 94 (23-300) U/L - Progress Progress: improved, pain not gone completely Counseled pt/family regarding: lab results, diagnosis, need for follow-up, rad results - Departure Departure Disposition: Home Clinical Impression: Abdominal pain Qualifiers: Abdominal location: periumbilical Qualified Code(s): R10.33 - Periumbilical pain Ovarian cyst Qualifiers: Laterality: right Qualified Code(s): N83.201 - Unspecified ovarian cyst, right side Condition: Stable Critical Care Time: Yes Critical Care Time(excluding separately billable procedures): Critical 30-74 mins Referrals: LIAN REYES [Primary Care Provider] - Instructions: Acute Abdomen (Belly Pain), Adult (DC), Ovarian Cyst (DC) Additional Instructions: Discharge/Care Plan SHELBI BOWDEN was seen on 11/24/19 in the Emergency Room. The patient was counseled regarding Diagnosis,Lab results, Imaging studies, need for follow up and when to return to the Emergency Room. Prescriptions given: Discharge Note I have spoken with the patient and/or caregivers. I have explained the patient' s condition, diagnosis and treatment plan based on the information available to me at this time. I have answered the patient's and/or caregiver's questions and addressed any concerns. The patient and/or caregivers have as good understanding of the patient's diagnosis, condition and treatment plan as can be expected at this point. The vital signs have been stable. The patient's condition is stable and appropriate for discharge from the emergency department. The patient will pursue further outpatient evaluation with the primary care physician or other designated or consulting physician as outlined in the discharge instructions. The patient and/or caregivers are agreeable to this plan of care and follow-up instructions have been explained in detail. The patient and/or caregivers have received these instruction. The patient/and or caregivers are aware that any significant change in condition or worsening of symptoms should prompt an immediate return to this or the closest emergency department or call 911. SHELBI BOWDEN was seen on 11/24/19 n the Emergency Room. At that time you were treated for an emergent condition, during your visit Laboratory, Radiology and/or other procedures may have been ordered. It is very important that you follow-up with your Primary Care Physician LIAN REYES within the next 24-48 hours to review your Emergency Room visit and the final results of testing that was ordered. Some test results such as Urine Cultures, Blood Cultures, and other cultures if ordered will not be finalized for 24-48 hours. If you do not have a Primary Care Provider please call the medical records department at [phone] ext [phone] to obtain a copy of your results or you may sign into our patient portal to obtain these results by visiting us @ [email or web address] and completing the following steps: 1. Click on the Patient Portal link 2. Click the Patient Self Enrollment Link to complete the enrollment form and entering your 3. Once the enrollment form is completed you will receive an email with a temporary ID and password at the email address you provided. 4. Next choose a user name and password. Your user name must be at least 4 characters long and your password must be at least 4 characters long. 5. Choose a security question from the list and provide your answer to the question. If you already have signed into the Health Portal you may access your Health Care Information 11/04 by the following steps: 1. Login to our website @ [email or web address] 2. Enter your original user name and password. FAQS The [facility] Health Portal is an online tool that contains your Lab Results, Radiology Reports, Visit History, Discharge Instructions and Health Summary Lab and Radiology Results will not be available for 72 hours on the portal. The Portal is a secure site, passwords are encryted and URLs are re-written so they cannot be copied and pasted. You and authorized family members are the only ones who can access your Portal. Also there is a timeout feature that protects your information if you leave the Portal page open. If you have technical difficulty please use the Contact Us link on the page this will allow you to submit any questions you have regarding the Portal or you may contact the Medical Record Department at [phone]. Prescriptions: Hydrocodone/APAP 5-325 Tab^^^ [Lebeau 5-325 Tablet^^^] 1 tab PO Q6HPRN PRN #10 tablet MDD 6 PRN Reason: Pain
[2019-11-24] MEDS ORDERED: MORPHINE SULFATE 4 MG INJ IV ONE (00:42)
[2019-11-24] MEDS ORDERED: MORPHINE SULFATE 4 MG INJ ONE (00:44)
[2019-11-24 01:48] VITALS: BP 151/101; PULSE 100; O2SAT 99
--- NOTE | 2019-11-24 10:21 | XRAY ---
Indication: Abdominal pain. Multiple contiguous axial images obtained through the abdomen and pelvis without contrast as ordered. Comparison: July 26, 2019. Lung bases are clear. Heart is not enlarged. Stomach is distended with food/fluid. Noncontrasted stomach and bowel loops appear nonobstructed. There is again mild fluid distended small bowel loops with fluid leveling, ileus versus enteritis. Small free fluid in the lower abdomen/pelvis probably reactive. No walled off fluid collection or free air. Appendix not seen. Mild fecal debris in the right hemicolon. Remaining liver, gallbladder, pancreas, spleen, adrenal glands, kidneys, uterus, and aorta appear unremarkable for noncontrast exam. Osseous structures intact. Impression: 1. Mild fluid distended small bowel loops with fluid leveling, ileus versus enteritis. Small free fluid probably reactive. 2. Remaining CT abdomen/pelvis without contrast exam is negative. Comment: Preliminary interpretation was made by [facility]. No critical discrepancy
== END 2019-11-24 01:49 | disposition home or self-care (01) ==
LOC: ED 23:36
DX: R10.33 Periumbilical pain (principal); N83.201 Unspecified ovarian cyst, right side
CPT/HCPCS: 36000; 36415; 74176; 80053; 82150; 83690; 85025; 96360; 96374; 96375; 99284; 99291; J2270; J2405; J3010

== ENCOUNTER 2020-03-18 02:47 | Emergency (ER) | payer OTHER ==
[2020-03-18 03:08] VITALS: O2SAT 100
[2020-03-18] MEDS ORDERED: TORAdol 30 mg Injection ONE (03:12)
[2020-03-18] MEDS: TORAdol 30 mg Injection IV ONE (03:13)
--- NOTE | 2020-03-18 03:19 | ERPHSYRPT ---
- History of Present Illness Time Seen by Provider: 03/18/20 03:12 Historian: patient Exam Limitations: no limitations Patient Subjective Stated Complaint: "I woke up an hour ago with this pain in my back thats going to the front." Triage Nursing Assessment: Pt presented alert et oriented x3 answering questions appropriately. Pt reported bilateral flank pain radiating to the front. Pain was described as sharp and stabbing rated 10/10. Pt reported nausea without vomiting. Denied chest pain/shortness of breath. Pupils 3mm reactive. Oral mucosa pink/moist. Symmetrical chest expansion. Lungs clear with adequate airflow. heart tones regular/clear. Abdomen flat non-distended. Denied dysuria/vomiting/diarrhea. Physician History: 24 yo wf w B flank pain/supra-pubic pain x 1 hours. Pain is 10 on scale/stabbing/nothing makes better or worse. She has had dysuria/hematuria wo fever/N/V/D. is denied. Timing/Duration: other (1hr) Quality: stabbing Abdominal Pain Onset Location: suprapubic, flank Pain Radiation: flank Severity of Pain-Max: severe Severity of Pain-Current: severe Modifying Factors: Improves With: nothing Associated Symptoms: back, No chest pain, No diaphoresis, No diarrhea, No fever/chills, No fatigue, No headache, No heartburn, No loss of appetite, No nausea, No neck pain, No rash, No shortness of breath, No syncope, No vomiting, No weakness Previous symptoms: no prior history Allergies/Adverse Reactions: No Known Drug Allergies Allergy (Verified 03/18/20 02:56) Home Medications: Buspirone HCl 5 mg [Buspar 5 mg] 2 tab PO DAILY 03/18/20 [History] Hx Tetanus, Diphtheria Vaccination/Date Given: Yes Hx Influenza Vaccination/Date Given: Yes Hx Pneumococcal Vaccination/Date Given: No Travel Risk - International Travel Have you traveled outside of the country in past 3 weeks: No - Coronavirus Screening Are you exhibiting any of the following symptoms?: No Close contact with a COVID-19 positive Pt in past 14-21 Days: No - Review of Systems Constitutional: No Symptoms Eyes: No Symptoms Ears, Nose, & Throat: No Symptoms Respiratory: No Symptoms Cardiac: No Symptoms Abdominal/Gastrointestinal: Abdominal Pain Genitourinary Symptoms: Dysuria, Hematuria Musculoskeletal: No Symptoms Skin: No Symptoms Neurological: No Symptoms Psychological: No Symptoms Endocrine: No Symptoms Hematologic/Lymphatic: No Symptoms Immunological/Allergic: No Symptoms - Past Medical History Pertinent Past Medical History: No Neurological History: No Pertinent History ENT History: No Pertinent History Cardiac History: Angina Respiratory History: No Pertinent History Endocrine Medical History: No Pertinent History Musculoskeletal History: No Pertinent History GI Medical History: No Pertinent History History: No Pertinent History Psycho-Social History: Anxiety, Depression Female Reproductive Disorders: No Pertinent History Other Medical History: 2wk hospitalization at age 5 for e-coli. recent angina (from fingers to elbow) had recent EKG,september with normal ekg - Past Surgical History Past Surgical History: No Neuro Surgical History: No Pertinent History Cardiac: No Pertinent History Respiratory: No Pertinent History Gastrointestinal: No Pertinent History Genitourinary: No Pertinent History Musculoskeletal: No Pertinent History Female Surgical History: No Pertinent History Other Surgical History: Cyst removed from left ovary 09/18/19 - Social History Smoking Status: Current every day smoker How long have you smoked: 9 years Exposure to second hand smoke: Yes Drug Use: marijuana Patient Lives Alone: No Significant Family History: no pertinent family hx - Female History Hx Now: (unknown) - Nursing Vital Signs Nursing Vital Signs: Initial Vital Signs Temperature 98.1 F 03/18/20 02:47 Pulse Rate 70 03/18/20 02:47 Respiratory Rate 20 03/18/20 02:47 Blood Pressure 157/105 03/18/20 02:47 O2 Sat by Pulse Oximetry 100 03/18/20 02:47 Pain Scale Pain Intensity 3 - Physical Exam General Appearance: no apparent distress Eye Exam: PERRL/EOMI, eyes nml inspection Ears, Nose, Throat Exam: normal ENT inspection, TMs normal, pharynx normal, moist mucous membranes Neck Exam: normal inspection, non-tender, full range of motion, No meningismus, No Brudzinski, No Kernig's Respiratory Exam: normal breath sounds, lungs clear, airway intact, No respiratory distress Cardiovascular Exam: regular rate/rhythm, normal heart sounds, normal peripheral pulses, No murmur Gastrointestinal/Abdomen Exam: soft, tenderness (suprapubic/no guarding or rebound) Pelvic Exam: not done Rectal Exam: deferred Back Exam: CVA tenderness Extremity Exam: normal inspection, normal range of motion Neurologic Exam: alert, 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, 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 Skin Exam: normal color, warm, dry Lymphatic Exam: No adenopathy SpO2 Interpretation: normal SpO2: 100 O2 Delivery: Room Air - CT Exams Abdomen/Pelvis CT Interpretation: Tele-radiologist Report (R perinephric edema) Ordered Tests: Active Orders 24 hr Category Date Time Status ABDOMEN AND PELVIS W/0 CONTRAS [CT] Stat Exams 03/18/20 03:41 Taken CULTURE,URINE Stat Lab 03/18/20 03:34 Received HCG,QUALITATIVE URINE Stat Lab 03/18/20 03:34 Completed UA W/RFX UR CULTURE Stat Lab 03/18/20 03:34 Completed Urine Triage Profile Stat Lab 03/18/20 03:34 Completed Medication Summary Generic Name Dose Route Start Last Admin Trade Name Freq PRN Reason Stop Dose Admin Sodium Chloride 1,000 mls @ 999 mls/hr 03/18/20 03:48 03/18/20 03:48 Sodium Chloride 0.9% 1000 Ml IV 03/18/20 04:48 999 mls/hr .Q1H1M STA Administration Discontinued Medications Generic Name Dose Route Start Last Admin Trade Name Freq PRN Reason Stop Dose Admin Ceftriaxone Sodium/Dextrose 1 g in 50 mls @ 100 mls/hr 03/18/20 03:42 03/18/20 04:35 Rocephin 1 Gm-D5w 50 Ml Bag IV 03/18/20 04:11 Infused STAT STA Infusion Ceftriaxone Sodium/Dextrose Confirm 03/18/20 03:44 Rocephin 1 Gm-D5w 50 Ml Bag Administered 03/18/20 03:45 Dose 1 g in 50 mls @ ud IV .STK-MED ONE Sodium Chloride Confirm 03/18/20 03:47 Sodium Chloride 0.9% 1000 Ml Administered 03/18/20 03:48 Dose 1,000 mls @ ud .ROUTE .STK-MED ONE Ketorolac Tromethamine 30 mg 03/18/20 03:12 03/18/20 03:13 Toradol 30 Mg Injection IV 03/18/20 03:13 30 mg STAT ONE Administration Ketorolac Tromethamine Confirm 03/18/20 03:12 Toradol 30 Mg Injection Administered 03/18/20 03:13 Dose 30 mg .ROUTE .STK-MED ONE Lab/Rad Data: Laboratory Results 03/18/20 03/18/20 03/18/20 Range/Units 03:34 03:34 03:34 Urine Color YELLOW (YELLOW) Urine Appearance CLOUDY (CLEAR) Urine pH 6.0 (5-6) Ur Specific [place] 1.013 (1.005-1.025) Urine Protein 100 (Negative) Urine Ketones NEGATIVE (NEGATIVE) Urine Blood LARGE (0-5) Michel/ul Urine Nitrite POSITIVE (NEGATIVE) Urine Bilirubin NEGATIVE (NEGATIVE) Urine Urobilinogen NORMAL (0-1) mg/dL Ur Leukocyte Esterase LARGE (NEGATIVE) Urine WBC (Auto) >100 (0-5) /HPF Urine RBC (Auto) >101 (0-2) /HPF U Epithel Cells (Auto) NONE (FEW) /HPF Urine Bacteria (Auto) MODERATE (NEGATIVE) /HPF Urine Mucus (Auto) SLIGHT (NEGATIVE) /HPF Urine Culture Reflexed YES (NO) Urine Glucose NEGATIVE (NEGATIVE) mg/dL Urine HCG, Qual NEGATIVE (Negative) Urine Opiates Level NEGATIVE (NEGATIVE) Ur Methadone NEGATIVE (NEGATIVE) Urine Barbiturates NEGATIVE (NEGATIVE) Ur Phencyclidine (PCP) NEGATIVE (NEGATIVE) Urine Amphetamine NEGATIVE (NEGATIVE) U Benzodiazepine Level NEGATIVE (NEGATIVE) Urine Cocaine NEGATIVE (NEGATIVE) Urine Marijuana (THC) POSITIVE (NEGATIVE) - Progress Progress: improved Progress Note: 03/18/20 03:46 Pain improved w 30mg IV toradol. 1gm IV rocephin 03/18/20 04:40 1L NS bolus - Departure Departure Disposition: Home Clinical Impression: Pyelonephritis Condition: Stable Critical Care Time: No Referrals: LIAN REYES [Primary Care Provider] - Instructions: Kidney Infection (DC) Additional Instructions: Fluids Pain meds as needed Start Bactrim twice a day for 1 week Follow up with family MD in 1-2 days Return to ER for increasing pain/temperature greater than 100.5/inability to hold down fluids Prescriptions: Hydrocodone Bit/Acetaminophen [Durand 10-325 Tablet] 1 each PO Q4H PRN PRN #6 tablet PRN Reason: Pain Sulfamethoxazole/Trimethoprim [Bactrim Ds Tablet] 1 each PO BID #14 tablet
[2020-03-18 03:37] LABS: Appearance CLOUDY (CLEAR); Bilirubin NEGATIVE (NEGATIVE); Blood LARGE Ery/ul (0-5); Glucose NEGATIVE (NEGATIVE); Ketones NEGATIVE (NEGATIVE); Leukocyte Esterase LARGE (NEGATIVE); Mucus SLIGHT /HPF (NEGATIVE); Nitrite POSITIVE (NEGATIVE); Protein,Urine Dip 100 (Negative); RBC >101 /HPF (0-2); Specific Gravity 1.013 (1.005-1.025); Urobilinogen NORMAL mg/dL (0-1); WBC >100 /HPF (0-5)
[2020-03-18 03:38] LABS: Bacteria MODERATE /HPF (NEGATIVE)
[2020-03-18 03:41] LABS: Amphetamine,Urine NEGATIVE (NEGATIVE); Barbiturate,Urine NEGATIVE (NEGATIVE); Benzodiazepine,Urine NEGATIVE (NEGATIVE); Cocaine,Urine NEGATIVE (NEGATIVE); Methadone,Urine NEGATIVE (NEGATIVE); Opiate,Urine NEGATIVE (NEGATIVE); PCP,Urine NEGATIVE (NEGATIVE); THC,Urine POSITIVE (NEGATIVE)
[2020-03-18] MEDS ORDERED: ROCEPHIN 1 Gm-D5w 50 ml Bag** 1 G/50 ML IVPB IV ONE (03:44)
[2020-03-18] MEDS: ROCEPHIN 1 Gm-D5w 50 ml Bag** 1 G/50 ML IVPB IV STA (03:46)
[2020-03-18] MEDS ORDERED: Sodium Chloride 0.9% 1000 ML 1,000 ML ONE (03:47)
[2020-03-18] MEDS: Sodium Chloride 0.9% 1000 ML 1,000 ML IV STA (03:48)
[2020-03-18 04:52] VITALS: BP 127/87; PULSE 71
--- NOTE | 2020-03-18 08:49 | XRAY ---
Indication: Bilateral flank and suprapubic pain. Nausea. Multiple contiguous axial images obtained through the abdomen and pelvis without contrast as ordered. Comparison: November 24, 2019. Lung bases remain clear. Heart is not enlarged. Noncontrasted stomach and bowel loops remain nonobstructed. Appendix not seen. Right pelvis demonstrates new 6.8 cm cystic mass possibly ovary in etiology. No free fluid/air. Right kidney demonstrates mild hydronephrosis without calculus or perinephric fluid. Remaining liver, gallbladder, pancreas, spleen, adrenal glands, kidneys, ureters, bladder, uterus, and aorta appear unremarkable for noncontrast exam. Osseous structures intact. No ventral or inguinal hernias. Impression: 1. New 6.8 cm right adnexal cystic mass possibly ovary in etiology. Pelvic sonogram may yield further information. 2. New mild hydronephrotic right kidney presumed secondary to right adnexa cystic mass. Comment: Preliminary interpretation was made by [facility] who does not report pelvic cystic mass. I gave telephone report to Dr. Cortes in the ER at 0850 hrs. on March 18, 2020.
== END 2020-03-18 04:50 | disposition home or self-care (01) ==
LOC: ED 02:47
DX: N12 Tubulo-interstitial nephritis, not specified as acute or chronic (principal)
CPT/HCPCS: 36000; 74176; 80307; 81001; 84703; 87077; 87086; 87186; 96365; 96374; 99284; J0696; J1885

== ENCOUNTER 2020-08-11 20:45 | Emergency (ER) | payer OTHER ==
[2020-08-11 20:57] VITALS: BP 146/109; PULSE 107; O2SAT 100
[2020-08-11] MEDS ORDERED: TORAdol 30 mg Injection IM ONE (21:18)
[2020-08-11] MEDS ORDERED: Norflex 60 MG/2 ML IM ONE (21:19)
[2020-08-11] MEDS ORDERED: TORAdol 30 mg Injection ONE (21:22)
[2020-08-11] MEDS ORDERED: Norflex 60 MG/2 ML ONE (21:22)
--- NOTE | 2020-08-11 21:25 | ERPHSYRPT ---
- History of Present Illness Source: patient Exam Limitations: no limitations Patient Subjective Stated Complaint: pt c/o neck pain on rt side, to shoulder and down arm Triage Nursing Assessment: pt ambulated to ER rm 5. Pt c/o neck pain on rt side, which radiates to rt shoulder and down rt arm and occasionally down rt leg. Pt states, "My rt arm and fingers go numb at times". Pain has been going on x4 days but is getting worse. Physician History: 24 yo wf w R cervical pain x4days. Pt states pain 10 on scale and worse w head movement. She denies trauma/fever/focal weakness/BYRD/chest pain/nausea/vomiting/cough-coryza. Timing/Duration: other (4 days) Method of Injury: other (Denies injury) Quality: sharp Back Pain Location: paraspinous muscles Severity of Pain-Max: severe Severity of Pain-Current: severe Modifying Factors: Improves With: movement Associated Symptoms: No fever, No chills, No sweating, No urinary incontinence, No loss of bowel control, No constipation, No nausea, No vomiting, No problems urinating, No light-headedness, No dizziness, No numbness in legs/feet Previous symptoms: no prior history Allergies/Adverse Reactions: No Known Drug Allergies Allergy (Verified 08/11/20 21:05) Hx Tetanus, Diphtheria Vaccination/Date Given: (unsure) Hx Influenza Vaccination/Date Given: No Hx Pneumococcal Vaccination/Date Given: No Immunizations Up to Date: No Travel Risk - International Travel Have you traveled outside of the country in past 3 weeks: No - Coronavirus Screening Are you exhibiting any of the following symptoms?: Yes Symptoms: Vomiting/Diarrhea - Review of Systems Constitutional: No Symptoms Eyes: No Symptoms Ears, Nose, & Throat: No Symptoms Respiratory: No Symptoms Cardiac: No Symptoms Abdominal/Gastrointestinal: No Symptoms Genitourinary Symptoms: No Symptoms Musculoskeletal: No Symptoms, Neck Pain Skin: No Symptoms Neurological: No Symptoms Psychological: No Symptoms Endocrine: No Symptoms Hematologic/Lymphatic: No Symptoms Immunological/Allergic: No Symptoms - Past Medical History Pertinent Past Medical History: Yes Neurological History: No Pertinent History ENT History: No Pertinent History Cardiac History: Angina Respiratory History: No Pertinent History Endocrine Medical History: No Pertinent History Musculoskeletal History: No Pertinent History GI Medical History: No Pertinent History History: No Pertinent History Psycho-Social History: Anxiety, Depression Female Reproductive Disorders: Other Other Medical History: 2wk hospitalization at age 5 for e-coli. recent angina (from fingers to elbow) had recent EKG,september with normal ekg. cyst on ovary - Past Surgical History Past Surgical History: Yes Neuro Surgical History: No Pertinent History Cardiac: No Pertinent History Respiratory: No Pertinent History Gastrointestinal: No Pertinent History Genitourinary: No Pertinent History Musculoskeletal: No Pertinent History Female Surgical History: Other Other Surgical History: Cyst removed from left ovary 09/18/19 - Social History Smoking Status: Current every day smoker How long have you smoked: 10 yrs Exposure to second hand smoke: Yes Drug Use: marijuana Patient Lives Alone: Yes Significant Family History: no pertinent family hx - Female History Hx Last Menstrual Period: last month Hx Now: No - Nursing Vital Signs Nursing Vital Signs: Initial Vital Signs Temperature 97.6 F 08/11/20 20:55 Pulse Rate 107 H 08/11/20 20:55 Respiratory Rate 16 08/11/20 20:55 Blood Pressure 146/109 08/11/20 20:55 O2 Sat by Pulse Oximetry 100 08/11/20 20:55 Pain Scale Pain Intensity [Right Neck] 10 Pain Intensity 8 - Physical Exam General Appearance: no apparent distress Eye Exam: PERRL/EOMI, eyes nml inspection Ears, Nose, Throat Exam: normal ENT inspection, TMs normal, pharynx normal, moist mucous membranes Neck Exam: other (R lateral cervical musculature TTP w superior scapular ttp and medial scapula ttp/Pain w neck-R shoulder movement consistent w R trapezius distribution), No meningismus, No mass, No Brudzinski, No Kernig's Respiratory Exam: normal breath sounds, lungs clear, airway intact, No respiratory distress Cardiovascular Exam: regular rate/rhythm, normal heart sounds, normal peripheral pulses, No murmur Pelvic Exam: not done Back Exam: normal inspection, normal range of motion, No vertebral tenderness Extremity Exam: normal inspection, normal range of motion Neurologic Exam: alert, 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, 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, 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, normal mood/affect, sensation nml, No motor deficits, No sensory deficit Skin Exam: normal color, warm, dry Lymphatic Exam: No adenopathy SpO2 Interpretation: normal SpO2: 100 O2 Delivery: Room Air - Course Nursing assessment & vital signs reviewed: Yes Ordered Tests: Medication Summary Discontinued Medications Generic Name Dose Route Start Last Admin Trade Name Princess PRN Reason Stop Dose Admin Ketorolac Tromethamine 60 mg 08/11/20 21:18 08/11/20 21:28 Toradol 30 Mg Injection IM 08/11/20 21:19 60 mg STAT ONE Administration Ketorolac Tromethamine Confirm 08/11/20 21:22 Toradol 30 Mg Injection Administered 08/11/20 21:23 Dose 60 mg .ROUTE .STK-MED ONE Orphenadrine Citrate 60 mg 08/11/20 21:19 08/11/20 21:27 Norflex 60 Mg/2 Ml IM 08/11/20 21:20 60 mg STAT ONE Administration Orphenadrine Citrate Confirm 08/11/20 21:22 Norflex 60 Mg/2 Ml Administered 08/11/20 21:23 Dose 60 mg .ROUTE .STK-MED ONE - Progress Progress Note: 08/11/20 21:30 60mg IM toradol/60mg IM norflex Counseled pt/family regarding: diagnosis, need for follow-up - Departure Departure Disposition: Home Clinical Impression: Trapezius strain Condition: Stable Critical Care Time: No Referrals: LIAN REYES [Primary Care Provider] - Instructions: Cervical Muscle Strain (DC) Additional Instructions: Rest/Heat/Massage Toradol/Norflex as needed for pain Follow up with your family MD for continued pain Return to ER for increasing pain/temperature greater than 100.5 Prescriptions: Orphenadrine Citrate 100 mg [Norflex 100 MG Tablet] 100 mg PO BID PRN PRN #12 tab PRN Reason: Pain Ketorolac Tromethamine [Toradol] 10 mg PO TID PRN PRN #12 tablet PRN Reason: Pain
== END 2020-08-11 21:35 | disposition home or self-care (01) ==
LOC: ED 20:45
DX: S46.811A Strain of other muscles, fascia and tendons at shoulder and upper arm level, right arm, initial encounter (principal); M79.601 Pain in right arm
CPT/HCPCS: 96372; 99283; J1885; J2360

== ENCOUNTER 2020-11-18 12:12 | Emergency (ER) | payer OTHER ==
[2020-11-18] MEDS ORDERED: Sodium Chloride 0.9% 1000 ML 1,000 ML IV STA (12:44)
[2020-11-18] MEDS ORDERED: Sodium Chloride 0.9% 1000 ML 1,000 ML ONE (12:46)
[2020-11-18] MEDS ORDERED: Zofran 4 MG/2 ML VIAL IV ONE (12:47)
[2020-11-18] MEDS ORDERED: Zofran 4 MG/2 ML VIAL ONE (12:48)
[2020-11-18 13:08] LABS: Absolute Neutrophil Ct (ANC) 5.76 (1.4-6.9); BASOPHIL % 0.2 % (0.0-0.4); Basophil (Absolute #) 0.02 (0-0.4); Eosinophil % 1.7 % (0.00-5.0); Eosinophil (Absolute #) 0.14 (0-0.5); Hematocrit 40.1 % (35-47); Hemoglobin 13.3 gm/dl (12.0-16.0); Lymphocyte (Absolute #) 1.69 (1.0-4.6); Lymphocytes % 20.5 % (24.0-44.0); Mean Cell Volume 84.1 fl (78-100); Mean Corpuscular Hemoglobin 27.9 pg (26-32); Mean Corpuscular Hgb Concent. 33.2 g/dl (32-36); Mean Platelet Volume 9.6 fl (7.5-11.0); Monocyte (Absolute #) 0.65 (0.0-1.3); Monocytes % 7.9 % (0.0-12.0); Neutrophil % 69.7 % (36.0-66.0); Platelet Count 281 K/mm3 (150-450); Red Blood Count 4.77 M/mm3 (4.1-5.4); Red Cell Distribution Width 13.8 % (11.5-14.0); White Blood Count 8.3 K/mm3 (4.0-10.5)
[2020-11-18 13:13] LABS: Appearance CLOUDY (CLEAR); Bacteria RARE /HPF (NEGATIVE); Bilirubin NEGATIVE (NEGATIVE); Blood LARGE Ery/ul (0-5); Epithelial Cells FEW /HPF (FEW); Glucose NEGATIVE (NEGATIVE); Ketones SMALL (NEGATIVE); Leukocyte Esterase NEGATIVE (NEGATIVE); Mucus MANY /HPF (NEGATIVE); Nitrite NEGATIVE (NEGATIVE); Protein,Urine Dip 100 (Negative); Specific Gravity 1.029 (1.005-1.025); Urobilinogen 4 mg/dL (0-1)
[2020-11-18] MEDS ORDERED: MORPHINE SULFATE 4 MG INJ ONE (13:29)
[2020-11-18] MEDS ORDERED: MORPHINE SULFATE 4 MG INJ IV ONE (13:29)
[2020-11-18 13:31] LABS: ALBUMIN 5.2 g/dL (3.5-5.0); ALKALINE PHOSPHATASE 62 U/L (38-126); ANION GAP 14.6 MEQ/L (5-15); BLOOD UREA NITROGEN 27 mg/dL (7-17); CHLORIDE 98 mmol/L (98-107); Calcium 10.4 mg/dL (8.4-10.2); Carbon Dioxide 28 mmol/L (22-30); Creatinine 1 0.85 mg/dL (0.52-1.04); EST GLOMERULAR FILTRATION RATE > 60.0 ML/MIN; Glucose 98 mg/dL (74-106); HCG, Quantitative (Inhouse) < 2.39 mIU/ml; LIPASE 50 U/L (23-300); Potassium 3.8 mmol/L (3.5-5.1); SGOT/AST 25 U/L (14-36); SGPT/ALT 14 U/L (0-35); SODIUM 137 mmol/L (137-145); Total Protein 8.6 g/dL (6.3-8.2)
[2020-11-18 14:34] VITALS: BP 133/87; PULSE 97; O2SAT 99
--- NOTE | 2020-11-18 14:47 | ERPHSYRPT ---
- History of Present Illness Time Seen by Provider: 11/18/20 12:44 Source: patient Exam Limitations: no limitations Patient Subjective Stated Complaint: Abdominal pain-Vaginal bleeding Triage Nursing Assessment: Patient ambulated back to ED and transferred self to bed. Patient A+O X3. Patient's skin pink, warm and dry. Patient complains of lower abdominal pain constant sharp pain 10/10. Patient states yesterday she had a sharp pain in her left side of abdomen and started gushing blood from vagina. Patient reports vaginal bleeding going through 48 pads since this am. Patient states she has lost around 20 pounds since her bleeding started. Abdomen soft and round with BS X 4. Physician History: 25 years old female presented in the ER with chief complaint of heavy vaginal bleeding sudden onset yesterday. Patient reports she had some pain on the left pelvic area followed by a gush of blood and since then she has been gone through multiple pads. Reports she was checking her home test which was rodrigoasif morales positive but was negative at PCP office. Patient report cramping dull aching to sharp moderate to severe intensity pain without any significant aggravating or relieving factors in the pelvic area. Reports passing dark blood with no clots or tissues. Patient is worried about that she might be . Denies any vomiting, fever chills or urinary symptoms. Reports having regular cycle until early this year and bled for only 2 days in early October. Denies any history of ectopic, multiple sexual partners or STDs. Timing/Duration: yesterday, sudden, worse Activites at Onset: rest Quality: aching, sharpness Onset Location: pelvic pain Pain Radiation: none Severity of Pain-Max: severe Severity of Pain-Current: moderate Prior abdominal problems: none Sexual intercourse history: single partner Modifying Factors: Improves With: nothing Associated Symptoms: abdominal pain, lower back pain, No urinary frequency, No Allergies/Adverse Reactions: No Known Drug Allergies Allergy (Verified 11/18/20 12:19) Home Medications: No Reportable Medications [No Reported Medications] 11/18/20 [History] Hx Tetanus, Diphtheria Vaccination/Date Given: (unsure) Hx Influenza Vaccination/Date Given: No Hx Pneumococcal Vaccination/Date Given: No Travel Risk - International Travel Have you traveled outside of the country in past 3 weeks: No - Coronavirus Screening Are you exhibiting any of the following symptoms?: No Close contact with a COVID-19 positive Pt in past 14-21 Days: No - Review of Systems Constitutional: No Symptoms Eyes: No Symptoms Ears, Nose, & Throat: No Symptoms Respiratory: No Symptoms Cardiac: No Symptoms Abdominal/Gastrointestinal: Abdominal Pain Genitourinary Symptoms: Vaginal Bleeding Musculoskeletal: No Symptoms Skin: No Symptoms Neurological: No Symptoms Psychological: No Symptoms Endocrine: No Symptoms Hematologic/Lymphatic: No Symptoms Immunological/Allergic: No Symptoms - Past Medical History Pertinent Past Medical History: Yes Neurological History: No Pertinent History ENT History: No Pertinent History Cardiac History: Angina Respiratory History: No Pertinent History Endocrine Medical History: No Pertinent History Musculoskeletal History: No Pertinent History GI Medical History: No Pertinent History History: No Pertinent History Psycho-Social History: Anxiety, Depression Female Reproductive Disorders: Other Other Medical History: 2wk hospitalization at age 5 for e-coli. recent angina (from fingers to elbow) had recent EKG,september with normal ekg. cyst on ovary - Past Surgical History Past Surgical History: Yes Neuro Surgical History: No Pertinent History Cardiac: No Pertinent History Respiratory: No Pertinent History Gastrointestinal: No Pertinent History Genitourinary: No Pertinent History Musculoskeletal: No Pertinent History Female Surgical History: Other Other Surgical History: Cyst removed from left ovary 09/18/19 - Social History Smoking Status: Current every day smoker How long have you smoked: 10 yrs Exposure to second hand smoke: Yes Drug Use: marijuana Patient Lives Alone: Yes Significant Family History: no pertinent family hx - Female History Hx Last Menstrual Period: Oct Hx Now: Yes (unknown) - Nursing Vital Signs Nursing Vital Signs: Initial Vital Signs Temperature 97.9 F 11/18/20 12:22 Pulse Rate 127 H 11/18/20 12:22 Respiratory Rate 19 11/18/20 12:22 Blood Pressure 142/104 11/18/20 12:22 O2 Sat by Pulse Oximetry 100 11/18/20 12:22 Pain Scale Pain Intensity 4 - Physical Exam General Appearance: no apparent distress Eye Exam: PERRL/EOMI, eyes nml inspection Ears, Nose, Throat Exam: normal ENT inspection, pharynx normal Neck Exam: normal inspection, supple, full range of motion Respiratory Exam: normal breath sounds, lungs clear Cardiovascular Exam: normal heart sounds, tachycardia Gastrointestinal/Abdomen Exam: soft, normal bowel sounds, tenderness (Minimal tenderness in left pelvic area. No guarding.) Pelvic Exam: adnexal tenderness (Minimal left adnexal tenderness.), vaginal bleeding (Small amount of dark blood in vaginal vault), No adnexal mass, No cervical motion tenderness, No uterine tenderness Extremity Exam: normal inspection, normal range of motion, pelvis stable Neurologic Exam: alert, 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, cooperative Skin Exam: normal color, warm SpO2 Interpretation: normal SpO2: 99 O2 Delivery: Room Air Ordered Tests: Active Orders 24 hr Category Date Time Status IV Insertion STAT Care 11/18/20 12:44 Completed CBC W DIFF Stat Lab 11/18/20 12:55 Completed CMP Stat Lab 11/18/20 12:55 Completed CULTURE,URINE Stat Lab 11/18/20 12:45 Received HCG, Quantitative (Inhouse) Stat Lab 11/18/20 12:55 Completed LIPASE Stat Lab 11/18/20 12:55 Completed UA W/RFX UR CULTURE Stat Lab 11/18/20 12:45 Completed Wet Prep Stat Lab 11/18/20 14:30 Received Medication Summary Discontinued Medications Generic Name Dose Route Start Last Admin Trade Name Ryneq PRN Reason Stop Dose Admin Sodium Chloride 1,000 mls @ 999 mls/hr 11/18/20 12:44 11/18/20 14:01 Sodium Chloride 0.9% 1000 Ml IV 11/18/20 13:44 Infused .Q1H1M STA Infusion Sodium Chloride Confirm 11/18/20 12:46 Sodium Chloride 0.9% 1000 Ml Administered 11/18/20 12:47 Dose 1,000 mls @ ud .ROUTE .STK-MED ONE Morphine Sulfate 4 mg 11/18/20 13:29 11/18/20 13:30 Morphine Sulfate 4 Mg Inj IV 11/18/20 13:30 4 mg STAT ONE Administration Morphine Sulfate Confirm 11/18/20 13:29 Morphine Sulfate 4 Mg Inj Administered 11/18/20 13:30 Dose 4 mg .ROUTE .STK-MED ONE Ondansetron HCl 4 mg 11/18/20 12:47 11/18/20 12:49 Zofran 4 Mg/2 Ml Vial IV 11/18/20 12:48 4 mg STAT ONE Administration Ondansetron HCl Confirm 11/18/20 12:48 Zofran 4 Mg/2 Ml Vial Administered 11/18/20 12:49 Dose 4 mg .ROUTE .STK-MED ONE Lab/Rad Data: Laboratory Result Diagrams 11/18/20 12:55 11/18/20 12:55 Laboratory Results 11/18/20 11/18/20 11/18/20 Range/Units 12:55 12:55 12:45 WBC 8.3 (4.0-10.5) K/mm3 RBC 4.77 (4.1-5.4) M/mm3 Hgb 13.3 (12.0-16.0) gm/dl Hct 40.1 (35-47) % MCV 84.1 (78-100) fl MCH 27.9 (26-32) pg MCHC 33.2 (32-36) g/dl RDW 13.8 (11.5-14.0) % Plt Count 281 (150-450) K/mm3 MPV 9.6 (7.5-11.0) fl Gran % 69.7 H (36.0-66.0) % Eos # (Auto) 0.14 (0-0.5) Absolute Lymphs (auto) 1.69 (1.0-4.6) Absolute Monos (auto) 0.65 (0.0-1.3) Lymphocytes % 20.5 L (24.0-44.0) % Monocytes % 7.9 (0.0-12.0) % Eosinophils % 1.7 (0.00-5.0) % Basophils % 0.2 (0.0-0.4) % Absolute Granulocytes 5.76 (1.4-6.9) Basophils # 0.02 (0-0.4) Sodium 137 (137-145) mmol/L Potassium 3.8 (3.5-5.1) mmol/L Chloride 98 (98-107) mmol/L Carbon Dioxide 28 (22-30) mmol/L Anion Gap 14.6 (5-15) MEQ/L BUN 27 H (7-17) mg/dL Creatinine 0.85 (0.52-1.04) mg/dL Estimated GFR > 60.0 ML/MIN Glucose 98 (74-106) mg/dL Calcium 10.4 H (8.4-10.2) mg/dL Total Bilirubin 1.20 (0.2-1.3) mg/dL AST 25 (14-36) U/L ALT 14 (0-35) U/L Alkaline Phosphatase 62 (38-126) U/L Serum Total Protein 8.6 H (6.3-8.2) g/dL Albumin 5.2 H (3.5-5.0) g/dL Lipase 50 (23-300) U/L Beta HCG, Quant < 2.39 mIU/ml Urine Color DANIEL (YELLOW) Urine Appearance CLOUDY (CLEAR) Urine pH 5.0 (5-6) Ur Specific [place] 1.029 (1.005-1.025) Urine Protein 100 (Negative) Urine Ketones SMALL (NEGATIVE) Urine Blood LARGE (0-5) Michel/ul Urine Nitrite NEGATIVE (NEGATIVE) Urine Bilirubin NEGATIVE (NEGATIVE) Urine Urobilinogen 4 (0-1) mg/dL Ur Leukocyte Esterase NEGATIVE (NEGATIVE) Urine WBC (Auto) 11-15 (0-5) /HPF Urine RBC (Auto) 11-15 (0-2) /HPF U Hyaline Cast (Auto) 11-25 (0-2) /LPF U Epithel Cells (Auto) FEW (FEW) /HPF Urine Bacteria (Auto) RARE (NEGATIVE) /HPF Urine Mucus (Auto) MANY (NEGATIVE) /HPF Urine Culture Reflexed YES (NO) Urine Glucose NEGATIVE (NEGATIVE) mg/dL - Progress Progress: improved, re-examined Air Movement: good Progress Note: 11/18/20 14:45 She is given fluid bolus and Zofran with morphine, on reevaluation feeling much better. I have done serum hCG quantitative which is below the level. She has stable H&H. Patient was tachycardic on presentation but improved after fluids and pain medications. No definitive UTI. I did not appreciate any significant tenderness in the left pelvic area. Does not seem like patient is having a ovarian torsion. I believe patient's is menorrhagia with irregular cycle but did not appreciate much blood pooling in the vaginal vault and no clots. Os is closed. She has only 1 pad which was barely soaked throughout sta y in the ER. I believe patient has irregular cycle and recommended follow-up outpatient with [facility]CHN[facility] for further evaluation. She is advised to take Tylenol ibuprofen as needed. On reevaluation her pain is completely resolved, I have offered ultrasound but patient does not want it done as her main concern was to make sure that she is not miscarrying. Discussed signs symptoms of worsening needing return to ER which she seems understanding. Stable for discharge. Blood Culture(s) Obtained: No Antibiotics given: No Counseled pt/family regarding: lab results, diagnosis, need for follow-up - Departure Departure Disposition: Home Clinical Impression: Menorrhagia with irregular cycle Condition: Stable Critical Care Time: No Referrals: LIAN REYES [Primary Care Provider] - (1-2 days for reevaluation) ANJELICA JUAREZ DO [ACTIVE STAFF] - (1-2 days for reevaluation) Instructions: Acute Abdomen (Belly Pain), Adult (DC), Heavy Periods (DC) Additional Instructions: Drink plenty of fluids. Take Tylenol/ibuprofen as needed. Follow-up with primary care and [facility] PH[facility]AC[facility] TECHNICIAN for reevaluation in the next couple of days. Return to ER for worsening vaginal bleeding, pain or if develop fever chills etc.
[2020-11-18 16:57] LABS: Bacteria Many; Clue Cells None Seen; Red Blood Cells Many; Trichomonas None Seen; White Blood Cells Moderate; Yeast None Seen
[2020-11-18 18:15] LABS: CHLAMYDIA DNA DETECTED (NEGATIVE); GC DNA Probe NOT DETECTED (NEGATIVE)
== END 2020-11-18 14:56 | disposition home or self-care (01) ==
LOC: ED 12:12
DX: R10.30 Lower abdominal pain, unspecified (principal); N92.6 Irregular menstruation, unspecified; N93.9 Abnormal uterine and vaginal bleeding, unspecified; R00.0 Tachycardia, unspecified; F17.210 Nicotine dependence, cigarettes, uncomplicated
CPT/HCPCS: 36000; 36415; 80053; 81001; 83690; 84702; 85025; 87086; 87210; 87491; 87591; 96374; 96375; 99284; J2270; J2405

== ENCOUNTER 2020-12-18 00:52 | Emergency (ER) | payer OTHER ==
[2020-12-18 01:06] VITALS: O2SAT 100
[2020-12-18] MEDS ORDERED: Sodium Chloride 0.9% 1000 ML 1,000 ML ONE (01:18)
[2020-12-18] MEDS ORDERED: Zofran 4 MG/2 ML VIAL IV ONE (01:34)
[2020-12-18] MEDS ORDERED: Sodium Chloride 0.9% 1000 ML 1,000 ML IV STA (01:34)
[2020-12-18] MEDS ORDERED: MORPHINE SULFATE 4 MG INJ IV ONE (01:34)
[2020-12-18] MEDS ORDERED: MORPHINE SULFATE 4 MG INJ ONE (01:40)
[2020-12-18] MEDS ORDERED: Zofran 4 MG/2 ML VIAL ONE (01:40)
--- NOTE | 2020-12-18 01:45 | ERPHSYRPT ---
- History of Present Illness Time Seen by Provider: 12/18/20 01:19 Historian: patient Exam Limitations: no limitations Patient Subjective Stated Complaint: pt c/o abd pain across her stomach, states, "I've had an ovarian cyst before and this is what it feels like". Triage Nursing Assessment: pt ambulated to Er room 5, c/o abd pain since noon yesterday but became so unbearable she couldn't stand it. Pt has hx of ovarian cyst at 7cm which she had surgery for in Aug, 2019, and states, "the pain feels like that". Abd soft with active bs, tender on palpation. LBM 12/17/20, last ate at 1800. Pt denies any nausea or vomiting or indigestion. Physician History: 25 years old female with history of adnexal complex cyst in the past, metromenorrhagia, previous cystectomy presented in the ER with chief complaint of lower abdominal pain sudden onset yesterday afternoon moderate to severe intensity sharp stabbing nature, aggravated with movements palpation and no significant relief with taking [id number] pain medications. Patient also started her cycle and pain is getting worse. Reports having similar pain m ultiple times in the past which usually responds to [id number] pain medications but it was not going away. She denies any difficulty urination. No nausea or vomiting reported. Denies any fever or chills. Timing/Duration: yesterday, sudden, worse Activities at Onset: rest Quality: sharpness, stabbing Abdominal Pain Onset Location: RLQ, LLQ, suprapubic Severity of Pain-Max: severe Severity of Pain-Current: severe Modifying Factors: Improves With: rest. Worsens With: coughing, movement, palpation Associated Symptoms: back Previous symptoms: same symptoms as today Allergies/Adverse Reactions: No Known Drug Allergies Allergy (Verified 12/18/20 01:14) Hx Tetanus, Diphtheria Vaccination/Date Given: Yes Hx Influenza Vaccination/Date Given: Yes Hx Pneumococcal Vaccination/Date Given: No Immunizations Up to Date: Yes Travel Risk - International Travel Have you traveled outside of the country in past 3 weeks: No - Coronavirus Screening Are you exhibiting any of the following symptoms?: No Close contact with a COVID-19 positive Pt in past 14-21 Days: No - Vaccine Status Have you recieved a Covid-19 vaccination: No - Review of Systems Constitutional: No Symptoms Eyes: No Symptoms Ears, Nose, & Throat: No Symptoms Respiratory: No Symptoms Cardiac: No Symptoms Abdominal/Gastrointestinal: Abdominal Pain Genitourinary Symptoms: Menorrhagia, Vaginal Bleeding Musculoskeletal: No Symptoms Skin: No Symptoms Neurological: No Symptoms Endocrine: No Symptoms Hematologic/Lymphatic: No Symptoms - Past Medical History Pertinent Past Medical History: Yes Neurological History: No Pertinent History ENT History: No Pertinent History Cardiac History: Angina Respiratory History: No Pertinent History Endocrine Medical History: No Pertinent History Musculoskeletal History: No Pertinent History GI Medical History: No Pertinent History History: No Pertinent History Psycho-Social History: Anxiety, Depression Female Reproductive Disorders: Other Other Medical History: 2wk hospitalization at age 5 for e-coli. recent angina (from fingers to elbow) had recent EKG,september with normal ekg. cyst on ovary - Past Surgical History Past Surgical History: Yes Neuro Surgical History: No Pertinent History Cardiac: No Pertinent History Respiratory: No Pertinent History Gastrointestinal: No Pertinent History Genitourinary: No Pertinent History Musculoskeletal: No Pertinent History Female Surgical History: Other Other Surgical History: Cyst removed from left ovary 09/18/19 - Social History Smoking Status: Former smoker How long have you smoked: 10 yrs Exposure to second hand smoke: Yes Drug Use: none Patient Lives Alone: Yes Significant Family History: no pertinent family hx - Female History Hx Last Menstrual Period: 12/16/20 Hx Now: No - Nursing Vital Signs Nursing Vital Signs: Initial Vital Signs Temperature 97.6 F 12/18/20 01:05 Pulse Rate 88 12/18/20 01:05 Respiratory Rate 18 12/18/20 01:05 Blood Pressure 148/102 12/18/20 01:05 O2 Sat by Pulse Oximetry 100 12/18/20 01:05 Pain Scale Pain Intensity 0 - Physical Exam General Appearance: no apparent distress Eye Exam: eyes nml inspection Ears, Nose, Throat Exam: normal ENT inspection, pharynx normal Neck Exam: normal inspection, non-tender, supple, full range of motion Respiratory Exam: normal breath sounds, lungs clear Cardiovascular Exam: regular rate/rhythm, normal heart sounds Gastrointestinal/Abdomen Exam: soft, normal bowel sounds, tenderness (Lower abdomen bilateral lower quadrants, suprapubic), guarding, No rebound Back Exam: normal inspection, normal range of motion Extremity Exam: normal inspection, normal range of motion Neurologic Exam: alert, 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, cooperative Skin Exam: normal color SpO2 Interpretation: normal SpO2: 100 O2 Delivery: Room Air Ordered Tests: Medication Summary Discontinued Medications Generic Name Dose Route Start Last Admin Trade Name Princess PRN Reason Stop Dose Admin Sodium Chloride Confirm 12/18/20 01:18 Sodium Chloride 0.9% 1000 Ml Administered 12/18/20 01:19 Dose 1,000 mls @ ud .ROUTE .STK-MED ONE Sodium Chloride 1,000 mls @ 999 mls/hr 12/18/20 01:34 12/18/20 01:43 Sodium Chloride 0.9% 1000 Ml IV 12/18/20 02:34 999 mls/hr .Q1H1M STA Administration Morphine Sulfate 4 mg 12/18/20 01:34 12/18/20 01:42 Morphine Sulfate 4 Mg Inj IV 12/18/20 01:35 4 mg STAT ONE Administration Morphine Sulfate Confirm 12/18/20 01:40 Morphine Sulfate 4 Mg Inj Administered 12/18/20 01:41 Dose 4 mg .ROUTE .STK-MED ONE Ondansetron HCl 4 mg 12/18/20 01:34 12/18/20 01:43 Zofran 4 Mg/2 Ml Vial IV 12/18/20 01:35 4 mg STAT ONE Administration Ondansetron HCl Confirm 12/18/20 01:40 Zofran 4 Mg/2 Ml Vial Administered 12/18/20 01:41 Dose 4 mg .ROUTE .STK-MED ONE Lab/Rad Data: Laboratory Result Diagrams 12/18/20 01:51 12/18/20 01:51 Laboratory Results 12/18/20 12/18/20 12/18/20 Range/Units 01:51 01:51 01:51 WBC 9.5 (4.0-10.5) K/mm3 RBC 4.52 (4.1-5.4) M/mm3 Hgb 12.8 (12.0-16.0) gm/dl Hct 39.1 (35-47) % MCV 86.5 (78-100) fl MCH 28.3 (26-32) pg MCHC 32.7 (32-36) g/dl RDW 13.3 (11.5-14.0) % Plt Count 209 (150-450) K/mm3 MPV 10.3 (7.5-11.0) fl Gran % 74.6 H (36.0-66.0) % Eos # (Auto) 0.22 (0-0.5) Absolute Lymphs (auto) 1.36 (1.0-4.6) Absolute Monos (auto) 0.82 (0.0-1.3) Lymphocytes % 14.3 L (24.0-44.0) % Monocytes % 8.6 (0.0-12.0) % Eosinophils % 2.3 (0.00-5.0) % Basophils % 0.2 (0.0-0.4) % Absolute Granulocytes 7.07 H (1.4-6.9) Basophils # 0.02 (0-0.4) Sodium 138 (137-145) mmol/L Potassium 4.3 (3.5-5.1) mmol/L Chloride 101 (98-107) mmol/L Carbon Dioxide 30 (22-30) mmol/L Anion Gap 11.0 (5-15) MEQ/L BUN 11 (7-17) mg/dL Creatinine 0.71 (0.52-1.04) mg/dL Estimated GFR > 60.0 ML/MIN Glucose 108 H (74-106) mg/dL Calcium 10.1 (8.4-10.2) mg/dL Total Bilirubin 0.70 (0.2-1.3) mg/dL AST 20 (14-36) U/L ALT 7 (0-35) U/L Alkaline Phosphatase 61 (38-126) U/L Serum Total Protein 7.6 (6.3-8.2) g/dL Albumin 4.8 (3.5-5.0) g/dL Lipase 57 (23-300) U/L Urine Color (YELLOW) Urine Appearance (CLEAR) Urine pH (5-6) Ur Specific [place] (1.005-1.025) Urine Protein (Negative) Urine Ketones (NEGATIVE) Urine Blood (0-5) Michel/ul Urine Nitrite (NEGATIVE) Urine Bilirubin (NEGATIVE) Urine Urobilinogen (0-1) mg/dL Ur Leukocyte Esterase (NEGATIVE) Urine WBC (Auto) (0-5) /HPF Urine RBC (Auto) (0-2) /HPF U Epithel Cells (Auto) (FEW) /HPF Urine Bacteria (Auto) (NEGATIVE) /HPF Amorphous Crystals (NEGATIVE) /HPF Urine Mucus (Auto) (NEGATIVE) /HPF Urine Culture Reflexed (NO) Urine Glucose (NEGATIVE) mg/dL Urine HCG, Qual NEGATIVE (Negative) 12/18/20 Range/Units 01:51 WBC (4.0-10.5) K/mm3 RBC (4.1-5.4) M/mm3 Hgb (12.0-16.0) gm/dl Hct (35-47) % MCV (78-100) fl MCH (26-32) pg MCHC (32-36) g/dl RDW (11.5-14.0) % Plt Count (150-450) K/mm3 MPV (7.5-11.0) fl Gran % (36.0-66.0) % Eos # (Auto) (0-0.5) Absolute Lymphs (auto) (1.0-4.6) Absolute Monos (auto) (0.0-1.3) Lymphocytes % (24.0-44.0) % Monocytes % (0.0-12.0) % Eosinophils % (0.00-5.0) % Basophils % (0.0-0.4) % Absolute Granulocytes (1.4-6.9) Basophils # (0-0.4) Sodium (137-145) mmol/L Potassium (3.5-5.1) mmol/L Chloride (98-107) mmol/L Carbon Dioxide (22-30) mmol/L Anion Gap (5-15) MEQ/L BUN (7-17) mg/dL Creatinine (0.52-1.04) mg/dL Estimated GFR ML/MIN Glucose (74-106) mg/dL Calcium (8.4-10.2) mg/dL Total Bilirubin (0.2-1.3) mg/dL AST (14-36) U/L ALT (0-35) U/L Alkaline Phosphatase (38-126) U/L Serum Total Protein (6.3-8.2) g/dL Albumin (3.5-5.0) g/dL Lipase (23-300) U/L Urine Color YELLOW (YELLOW) Urine Appearance SLIGHTLY CLOUDY (CLEAR) Urine pH 6.0 (5-6) Ur Specific [place] 1.024 (1.005-1.025) Urine Protein 30 (Negative) Urine Ketones NEGATIVE (NEGATIVE) Urine Blood LARGE (0-5) Michel/ul Urine Nitrite NEGATIVE (NEGATIVE) Urine Bilirubin NEGATIVE (NEGATIVE) Urine Urobilinogen 2 (0-1) mg/dL Ur Leukocyte Esterase NEGATIVE (NEGATIVE) Urine WBC (Auto) 3-5 (0-5) /HPF Urine RBC (Auto) 0-2 (0-2) /HPF U Epithel Cells (Auto) RARE (FEW) /HPF Urine Bacteria (Auto) RARE (NEGATIVE) /HPF Amorphous Crystals FEW (NEGATIVE) /HPF Urine Mucus (Auto) MANY (NEGATIVE) /HPF Urine Culture Reflexed YES (NO) Urine Glucose NEGATIVE (NEGATIVE) mg/dL Urine HCG, Qual (Negative) - Progress Progress: improved, re-examined Progress Note: 12/18/20 25 years old is evaluated for abdominal pain. She is given fluids and morphine, on reevaluation her pain is almost completely resolved. Has normal white count, grossly unremarkable chemistries. No UTI. CT abdomen pelvis grossly negative for any acute findings. Is possible she is having pain because of the cyst she has in her ovaries. Recommended taking pain medications as needed and outpatient follow-up with primary care and [facility]NIC[facility] for reevaluation. Discussed signs symptoms of worsening needing return to ER which she seems understanding. Counseled pt/family regarding: lab results, diagnosis, need for follow-up, rad results - Departure Departure Disposition: Home Clinical Impression: Ovarian cyst Qualifiers: Laterality: unspecified laterality Qualified Code(s): N83.209 - Unspecified ovarian cyst, unspecified side Abdominal pain Qualifiers: Abdominal location: lower abdomen, unspecified Qualified Code(s): R10.30 - Lower abdominal pain, unspecified Condition: Stable Critical Care Time: No Referrals: LIAN REYES [Primary Care Provider] - (1-2 days for reevaluation) ANJELICA JUAREZ DO [ACTIVE STAFF] - (1-2 days for reevaluation) Instructions: Acute Abdomen (Belly Pain) Additional Instructions: Use Tylenol/ibuprofen as needed for pain. Follow-up with primary care and [facility] TECHNIC[facility] for reevaluation. Return to ER for worsening pain. Prescriptions: Ibuprofen 600 mg PO Q6HPRN PRN 10 Days #20 tablet PRN Reason: Pain
[2020-12-18 02:03] LABS: Absolute Neutrophil Ct (ANC) 7.07 (1.4-6.9); BASOPHIL % 0.2 % (0.0-0.4); Basophil (Absolute #) 0.02 (0-0.4); Eosinophil % 2.3 % (0.00-5.0); Eosinophil (Absolute #) 0.22 (0-0.5); Hematocrit 39.1 % (35-47); Hemoglobin 12.8 gm/dl (12.0-16.0); Lymphocyte (Absolute #) 1.36 (1.0-4.6); Lymphocytes % 14.3 % (24.0-44.0); Mean Cell Volume 86.5 fl (78-100); Mean Corpuscular Hemoglobin 28.3 pg (26-32); Mean Corpuscular Hgb Concent. 32.7 g/dl (32-36); Mean Platelet Volume 10.3 fl (7.5-11.0); Monocyte (Absolute #) 0.82 (0.0-1.3); Monocytes % 8.6 % (0.0-12.0); Neutrophil % 74.6 % (36.0-66.0); Platelet Count 209 K/mm3 (150-450); Red Blood Count 4.52 M/mm3 (4.1-5.4); Red Cell Distribution Width 13.3 % (11.5-14.0); White Blood Count 9.5 K/mm3 (4.0-10.5)
[2020-12-18 02:09] LABS: ALBUMIN 4.8 g/dL (3.5-5.0); ALKALINE PHOSPHATASE 61 U/L (38-126); BLOOD UREA NITROGEN 11 mg/dL (7-17); CHLORIDE 101 mmol/L (98-107); Calcium 10.1 mg/dL (8.4-10.2); Carbon Dioxide 30 mmol/L (22-30); Creatinine 1 0.71 mg/dL (0.52-1.04); EST GLOMERULAR FILTRATION RATE > 60.0 ML/MIN; Glucose 108 mg/dL (74-106); LIPASE 57 U/L (23-300); Potassium 4.3 mmol/L (3.5-5.1); SGOT/AST 20 U/L (14-36); SGPT/ALT 7 U/L (0-35); SODIUM 138 mmol/L (137-145); Total Protein 7.6 g/dL (6.3-8.2)
[2020-12-18 02:14] LABS: Amourphous Crystal FEW /HPF (NEGATIVE); Appearance SLIGHTLY CLOUDY (CLEAR); Bacteria RARE /HPF (NEGATIVE); Bilirubin NEGATIVE (NEGATIVE); Blood LARGE Ery/ul (0-5); Epithelial Cells RARE /HPF (FEW); Glucose NEGATIVE (NEGATIVE); Ketones NEGATIVE (NEGATIVE); Leukocyte Esterase NEGATIVE (NEGATIVE); Mucus MANY /HPF (NEGATIVE); Nitrite NEGATIVE (NEGATIVE); Protein,Urine Dip 30 (Negative); RBC 0-2 /HPF (0-2); Specific Gravity 1.024 (1.005-1.025); Urobilinogen 2 mg/dL (0-1)
[2020-12-18 03:27] VITALS: BP 123/95; PULSE 60
--- NOTE | 2020-12-18 08:56 | XRAY ---
Indication: Abdomen pain. History ovarian cysts. Multiple contiguous axial images obtained through the abdomen and pelvis using 80 cc Isovue 370 contrast. Comparison: March 18, 2020. Lung bases grossly clear. Heart is not enlarged. Noncontrasted stomach and bowel loops appear nonobstructed. Appendix not seen. Right abdomen and pelvic small bowel loops are mildly fluid distended with circumferential wall thickening and there is mild fecal fluid leveling in the ascending colon. Appearance is unchanged on delayed imaging either ileus versus enterocolitis. No free fluid/air. Remaining distal colon decompressed and unremarkable. Remaining liver, gallbladder, pancreas, spleen, adrenal glands, kidneys, ureters, bladder, uterus, and aorta appear unremarkable. No pathologic retroperitoneal lymphadenopathy. Osseous structures intact. Impression: Mild fluid distended small bowel loops and ascending colon as detailed. Rule out ileus versus enterocolitis. Comment: Preliminary interpretation was made by [facility] who does not report incidental small/large bowel findings.
== END 2020-12-18 03:56 | disposition home or self-care (01) ==
LOC: ED 00:52
DX: N83.209 Unspecified ovarian cyst, unspecified side (principal); R10.30 Lower abdominal pain, unspecified
CPT/HCPCS: 36000; 36415; 74177; 80053; 81001; 83690; 84703; 85025; 87086; 96374; 96375; 99284; J2270; J2405

== ENCOUNTER 2021-02-10 15:07 | Emergency (ER) | payer OTHER ==
--- NOTE | 2021-02-10 15:10 | ERPHSYRPT ---
- History of Present Illness Time Seen by Provider: 02/10/21 15:10 Source: patient Exam Limitations: no limitations Physician History: This is a right-handed 25-year-old female who presents with a accidental laceration to the palmar aspect of her right thumb. It is actually oriented. She was concerned because she felt that this laceration might need suturing. She wanted it evaluated. Patient's tetanus status is unknown. Patient cut her thumb accidentally with a broken cup yesterday. She has full function of her lacerated thumb. Occurred: yesterday Method of Injury: other (Accidentally cut on a broken cup) Quality: other (Pain at the laceration site) Severity of Pain-Max: mild Severity of Pain-Current: mild Extremities Pain Location: thumb: right Modifying Factors: Improves With: movement Associated Symptoms: none Allergies/Adverse Reactions: No Known Drug Allergies Allergy (Verified 02/10/21 15:26) Home Medications: Buspirone HCl [Buspar] 5 mg PO BID 02/10/21 [History] Clonidine HCl 0.1 mg [Catapres 0.1 MG] 0.1 mg PO 02/10/21 [History] Trazodone HCl 50 mg [Desyrel 50 mg] 50 mg PO DAILY 02/10/21 [History] Hx Tetanus, Diphtheria Vaccination/Date Given: Yes Hx Influenza Vaccination/Date Given: Yes Hx Pneumococcal Vaccination/Date Given: No Travel Risk - International Travel Have you traveled outside of the country in past 3 weeks: No - Coronavirus Screening Are you exhibiting any of the following symptoms?: No Close contact with a COVID-19 positive Pt in past 14-21 Days: No - Vaccine Status Have you recieved a Covid-19 vaccination: No - Review of Systems Constitutional: No Symptoms Eyes: No Symptoms Ears, Nose, & Throat: No Symptoms Respiratory: No Symptoms Cardiac: No Symptoms Abdominal/Gastrointestinal: No Symptoms Genitourinary Symptoms: No Symptoms Musculoskeletal: No Symptoms Skin: Other (Laceration palmar aspect of right thumb) Neurological: No Symptoms Psychological: No Symptoms Endocrine: No Symptoms Hematologic/Lymphatic: No Symptoms Immunological/Allergic: No Symptoms All Other Systems: Reviewed and Negative - Past Medical History Pertinent Past Medical History: Yes Neurological History: No Pertinent History ENT History: No Pertinent History Cardiac History: Angina Respiratory History: No Pertinent History Endocrine Medical History: No Pertinent History Musculoskeletal History: No Pertinent History GI Medical History: No Pertinent History History: No Pertinent History Psycho-Social History: Anxiety, Depression Female Reproductive Disorders: Other Other Medical History: 2wk hospitalization at age 5 for e-coli. recent angina (from fingers to elbow) had recent EKG,september with normal ekg. cyst on ovary - Past Surgical History Past Surgical History: Yes Neuro Surgical History: No Pertinent History Cardiac: No Pertinent History Respiratory: No Pertinent History Gastrointestinal: No Pertinent History Genitourinary: No Pertinent History Musculoskeletal: No Pertinent History Female Surgical History: Other Other Surgical History: Cyst removed from left ovary 09/18/19 - Social History Smoking Status: Former smoker How long have you smoked: 10 yrs Exposure to second hand smoke: Yes Drug Use: none Patient Lives Alone: Yes Significant Family History: no pertinent family hx - Nursing Vital Signs Nursing Vital Signs: Initial Vital Signs Temperature 98.5 F 02/10/21 15:13 Pulse Rate 74 02/10/21 15:13 Blood Pressure 107/76 02/10/21 15:13 O2 Sat by Pulse Oximetry 99 02/10/21 15:13 Pain Scale Pain Intensity 0 - Physical Exam General Appearance: no apparent distress, alert, anxiety Eyes, Ears, Nose, Throat Exam: normal ENT inspection, moist mucous membranes Neck Exam: normal inspection, non-tender, supple, full range of motion Cardiovascular/Respiratory Exam: chest non-tender, no respiratory distress Abdominal Exam: non-tender Back Exam: normal inspection, normal range of motion, No CVA tenderness, No vertebral tenderness Shoulder Exam: normal inspection, non-tender, no evidence of injury, normal ROM Elbow/Forearm Exam: normal inspection, non-tender, no evidence of injury, normal ROM Wrist Exam: normal inspection, non-tender, no evidence of injury, normal ROM Hand Exam: normal ROM, laceration (3 cm axially oriented superficial laceration right thumb. Neurovascularly intact. Full range of motion. Tendon function intact. There is no active bleeding and no foreign bodies visualized) Neuro/Tendon Exam: normal sensation, normal motor functions, normal tendon functions Mental Status Exam: alert, 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, cooperative Skin Exam: laceration (As above) SpO2 Interpretation: normal O2 Delivery: Room Air Procedures - Laceration/Wound Repair Right Volar Finger Time of Procedure: 15:34 Wound Location: Right, hand (Palmar aspect thumb) Wound Length (cm): 3 Wound's Depth, Shape: superficial, linear Wound Explored: clean (No foreign body, examined in bloodless field, to base) Wound Repaired With: Steri-strips, Dermabond - Course Nursing assessment & vital signs reviewed: Yes Ordered Tests: Active Orders 24 hr Category Date Time Status Wound Care STAT Care 02/10/21 15:25 Active Medication Summary Discontinued Medications Generic Name Dose Route Start Last Admin Trade Name Freq PRN Reason Stop Dose Admin Lidocaine HCl Confirm 02/10/21 15:17 Xylocaine 1% Hcl 20 Ml Mdv Administered 02/10/21 15:18 Dose 10 ml .ROUTE .STK-MED ONE - Progress Progress: improved Counseled pt/family regarding: diagnosis - Departure Departure Disposition: Home Clinical Impression: Thumb laceration Condition: Stable Critical Care Time: No Referrals: LIAN REYES [Primary Care Provider] - Additional Instructions: Keep Steri-Strips dry for 24 hours. After 24 hours may wash site daily. Leave Steri-Strips in place till they fall off in approximately 5 to 7 days. Tylenol and ibuprofen for pain control.
[2021-02-10] MEDS ORDERED: XYLOCAINE 1% HCL 20 ML MDV ONE (15:17)
[2021-02-10 15:22] VITALS: BP 107/76; PULSE 74; O2SAT 99
[2021-02-10] MEDS ORDERED: Adacel Vial IM ONE ×2 (15:36→15:50)
== END 2021-02-10 16:02 | disposition home or self-care (01) ==
LOC: ED 15:07
DX: S61.011A Laceration without foreign body of right thumb without damage to nail, initial encounter (principal); M79.644 Pain in right finger(s); W25.XXXA Contact with sharp glass, initial encounter; Y93.9 Activity, unspecified; Y92.9 Unspecified place or not applicable; Z79.899 Other long term (current) drug therapy
CPT/HCPCS: 12002; 90471; 90715; 99283

== ENCOUNTER 2021-04-09 06:53 | Emergency (ER) | payer OTHER ==
[2021-04-09] MEDS ORDERED: Sodium Chloride 0.9% 1000 ML 1,000 ML IV STA (07:16)
[2021-04-09] MEDS ORDERED: MORPHINE SULFATE 4 MG INJ IV ONE (07:16)
[2021-04-09] MEDS ORDERED: Zofran 4 MG/2 ML VIAL IV ONE (07:16)
--- NOTE | 2021-04-09 07:47 | ERPHSYRPT ---
- History of Present Illness Time Seen by Provider: 04/09/21 07:24 Historian: patient Exam Limitations: no limitations Patient Subjective Stated Complaint: pt states "The pain began an hour ago in my belly." Triage Nursing Assessment: pt ambulated into the er; pt is axo x4; c/o abd pain; pt states 10/10 pain to abd; pt is grabbing abd with pillow in place; pt states that she had 2 diarrhea episodes; pt states that anytime she eats she has pain; pain in all quads with palpations; hyperactive bowel sounds in all quads; vitals wnl Physician History: 25 years old female presented in the ER with chief complaint of sudden onset generalized abdominal pain sharp nature moderate to severe intensity which is aggravated with palpation and oral intake, no significant relieving factors, associated nausea and couple of episodes of loose watery stool. Denies any vomiting today but does have couple of episodes of nonprojectile, nonbilious vomiting yesterday. Denies fever or chills. Reports history of abdominal pain in the past but that was in the lower abdomen associated with ovarian cyst which was removed later. This pain is not similar to that. Timing/Duration: today, hour(s) (2), constant, sudden, worse Activities at Onset: rest Quality: sharpness Abdominal Pain Onset Location: generalized abdomen Pain Radiation: no radiation Severity of Pain-Max: severe Severity of Pain-Current: severe Modifying Factors: Worsens With: eating, palpation Associated Symptoms: diarrhea, nausea Previous symptoms: no prior history Allergies/Adverse Reactions: No Known Drug Allergies Allergy (Verified 04/09/21 06:59) Home Medications: Buspirone HCl [Buspar] 5 mg PO BID 02/10/21 [History] Clonidine HCl 0.1 mg [Catapres 0.1 MG] 0.1 mg PO 02/10/21 [History] Trazodone HCl 50 mg [Desyrel 50 mg] 50 mg PO DAILY 02/10/21 [History] Hx Tetanus, Diphtheria Vaccination/Date Given: Yes Hx Influenza Vaccination/Date Given: No Hx Pneumococcal Vaccination/Date Given: No Travel Risk - International Travel Have you traveled outside of the country in past 3 weeks: No - Coronavirus Screening Are you exhibiting any of the following symptoms?: No Close contact with a COVID-19 positive Pt in past 14-21 Days: No - Vaccine Status Have you recieved a Covid-19 vaccination: No - Review of Systems Constitutional: No Symptoms Eyes: No Symptoms Ears, Nose, & Throat: No Symptoms Respiratory: No Symptoms Cardiac: No Symptoms Abdominal/Gastrointestinal: Abdominal Pain, Nausea, Diarrhea Genitourinary Symptoms: No Symptoms Musculoskeletal: No Symptoms Skin: No Symptoms Neurological: No Symptoms Psychological: No Symptoms Endocrine: No Symptoms Hematologic/Lymphatic: No Symptoms Immunological/Allergic: No Symptoms - Past Medical History Pertinent Past Medical History: Yes Neurological History: No Pertinent History ENT History: No Pertinent History Cardiac History: Angina Respiratory History: No Pertinent History Endocrine Medical History: No Pertinent History Musculoskeletal History: No Pertinent History GI Medical History: No Pertinent History History: No Pertinent History Psycho-Social History: Anxiety, Depression Female Reproductive Disorders: Other Other Medical History: 2wk hospitalization at age 5 for e-coli. recent angina (from fingers to elbow) had recent EKG,september with normal ekg. cyst on ovary - Past Surgical History Past Surgical History: Yes Neuro Surgical History: No Pertinent History Cardiac: No Pertinent History Respiratory: No Pertinent History Gastrointestinal: No Pertinent History Genitourinary: No Pertinent History Musculoskeletal: No Pertinent History Female Surgical History: Other Other Surgical History: Cyst removed from left ovary 09/18/19 - Social History Smoking Status: Former smoker How long have you smoked: 10 yrs Exposure to second hand smoke: No Drug Use: none Patient Lives Alone: No Significant Family History: no pertinent family hx - Female History Hx Now: (unkn) - Nursing Vital Signs Nursing Vital Signs: Initial Vital Signs Temperature 97.8 F 04/09/21 06:59 Pulse Rate 88 04/09/21 06:59 Respiratory Rate 16 04/09/21 06:59 Blood Pressure 148/99 04/09/21 06:59 O2 Sat by Pulse Oximetry 100 04/09/21 06:59 Pain Scale Pain Intensity 3 - Physical Exam General Appearance: no apparent distress, alert Eye Exam: PERRL/EOMI, eyes nml inspection Ears, Nose, Throat Exam: normal ENT inspection, pharynx normal Neck Exam: normal inspection, non-tender, supple, full range of motion Respiratory Exam: normal breath sounds, lungs clear Cardiovascular Exam: regular rate/rhythm, normal heart sounds Gastrointestinal/Abdomen Exam: soft, normal bowel sounds, tenderness (Generalized), guarding, No rebound Back Exam: normal inspection, normal range of motion, No CVA tenderness Extremity Exam: normal inspection, normal range of motion Neurologic Exam: alert, 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, cooperative Skin Exam: normal color SpO2 Interpretation: normal SpO2: 100 O2 Delivery: Room Air Ordered Tests: Active Orders 24 hr Category Date Time Status IV Insertion STAT Care 04/09/21 07:16 Active ABDOMEN AND PELVIS W CONTRAST [CT] Stat Exams 04/09/21 07:17 Completed PELVIS TRANS VAGINAL [US] Stat Exams 04/09/21 09:46 Completed CBC W DIFF Stat Lab 04/09/21 07:16 Completed CMP Stat Lab 04/09/21 07:16 Completed CULTURE,URINE Stat Lab 04/09/21 07:21 Received HCG,QUALITATIVE URINE Stat Lab 04/09/21 07:21 Completed LIPASE Stat Lab 04/09/21 07:16 Completed UA W/RFX UR CULTURE Stat Lab 04/09/21 07:21 Completed Medication Summary Discontinued Medications Generic Name Dose Route Start Last Admin Trade Name Princess PRN Reason Stop Dose Admin Sodium Chloride 1,000 mls @ 999 mls/hr 04/09/21 07:16 04/09/21 10:07 Sodium Chloride 0.9% 1000 Ml IV 04/09/21 08:16 Infused .Q1H1M STA Infusion Sodium Chloride Confirm 04/09/21 08:06 Sodium Chloride 0.9% 1000 Ml Administered 04/09/21 08:07 Dose 1,000 mls @ ud .ROUTE .STK-MED ONE Morphine Sulfate 4 mg 04/09/21 07:16 04/09/21 08:12 Morphine Sulfate 4 Mg Inj IV 04/09/21 07:17 4 mg STAT ONE Administration Morphine Sulfate Confirm 04/09/21 08:05 Morphine Sulfate 4 Mg Inj Administered 04/09/21 08:06 Dose 4 mg .ROUTE .STK-MED ONE Ondansetron HCl 4 mg 04/09/21 07:16 04/09/21 08:09 Zofran 4 Mg/2 Ml Vial IV 04/09/21 07:17 4 mg STAT ONE Administration Ondansetron HCl Confirm 04/09/21 08:06 Zofran 4 Mg/2 Ml Vial Administered 04/09/21 08:07 Dose 4 mg .ROUTE .STK-MED ONE Lab/Rad Data: Laboratory Result Diagrams 04/09/21 07:16 04/09/21 07:16 Laboratory Results 04/09/21 04/09/21 04/09/21 Range/Units 07:21 07:21 07:16 WBC (4.0-10.5) K/mm3 RBC (4.1-5.4) M/mm3 Hgb (12.0-16.0) gm/dl Hct (35-47) % MCV (78-100) fl MCH (26-32) pg MCHC (32-36) g/dl RDW (11.5-14.0) % Plt Count (150-450) K/mm3 MPV (7.5-11.0) fl Gran % (36.0-66.0) % Eos # (Auto) (0-0.5) Absolute Lymphs (auto) (1.0-4.6) Absolute Monos (auto) (0.0-1.3) Lymphocytes % (24.0-44.0) % Monocytes % (0.0-12.0) % Eosinophils % (0.00-5.0) % Basophils % (0.0-0.4) % Absolute Granulocytes (1.4-6.9) Basophils # (0-0.4) Sodium 140 (137-145) mmol/L Potassium 3.6 (3.5-5.1) mmol/L Chloride 104 (98-107) mmol/L Carbon Dioxide 26 (22-30) mmol/L Anion Gap 13.6 (5-15) MEQ/L BUN 16 (7-17) mg/dL Creatinine 0.66 (0.52-1.04) mg/dL Estimated GFR > 60.0 ML/MIN Glucose 99 (74-106) mg/dL Calcium 9.2 (8.4-10.2) mg/dL Total Bilirubin 0.40 (0.2-1.3) mg/dL AST 19 (14-36) U/L ALT 8 (0-35) U/L Alkaline Phosphatase 55 (38-126) U/L Serum Total Protein 7.2 (6.3-8.2) g/dL Albumin 4.3 (3.5-5.0) g/dL Lipase 73 (23-300) U/L Urine Color YELLOW (YELLOW) Urine Appearance SLIGHTLY CLOUDY (CLEAR) Urine pH 5.0 (5-6) Ur Specific [place] 1.030 (1.005-1.025) Urine Protein 30 (Negative) Urine Ketones NEGATIVE (NEGATIVE) Urine Blood LARGE (0-5) Michel/ul Urine Nitrite NEGATIVE (NEGATIVE) Urine Bilirubin NEGATIVE (NEGATIVE) Urine Urobilinogen 4 (0-1) mg/dL Ur Leukocyte Esterase TRACE (NEGATIVE) Urine WBC (Auto) 11-15 (0-5) /HPF Urine RBC (Auto) 0-2 (0-2) /HPF U Epithel Cells (Auto) FEW (FEW) /HPF Urine Bacteria (Auto) FEW (NEGATIVE) /HPF Urine Mucus (Auto) MANY (NEGATIVE) /HPF Urine Culture Reflexed YES (NO) Urine Glucose NEGATIVE (NEGATIVE) mg/dL Urine HCG, Qual NEGATIVE (Negative) 04/09/21 Range/Units 07:16 WBC 6.5 (4.0-10.5) K/mm3 RBC 4.15 (4.1-5.4) M/mm3 Hgb 11.8 L (12.0-16.0) gm/dl Hct 35.6 (35-47) % MCV 85.8 (78-100) fl MCH 28.4 (26-32) pg MCHC 33.1 (32-36) g/dl RDW 12.8 (11.5-14.0) % Plt Count 249 (150-450) K/mm3 MPV 10.5 (7.5-11.0) fl Gran % 62.1 (36.0-66.0) % Eos # (Auto) 0.24 (0-0.5) Absolute Lymphs (auto) 1.63 (1.0-4.6) Absolute Monos (auto) 0.57 (0.0-1.3) Lymphocytes % 25.1 (24.0-44.0) % Monocytes % 8.8 (0.0-12.0) % Eosinophils % 3.7 (0.00-5.0) % Basophils % 0.3 (0.0-0.4) % Absolute Granulocytes 4.03 (1.4-6.9) Basophils # 0.02 (0-0.4) Sodium (137-145) mmol/L Potassium (3.5-5.1) mmol/L Chloride (98-107) mmol/L Carbon Dioxide (22-30) mmol/L Anion Gap (5-15) MEQ/L BUN (7-17) mg/dL Creatinine (0.52-1.04) mg/dL Estimated GFR ML/MIN Glucose (74-106) mg/dL Calcium (8.4-10.2) mg/dL Total Bilirubin (0.2-1.3) mg/dL AST (14-36) U/L ALT (0-35) U/L Alkaline Phosphatase (38-126) U/L Serum Total Protein (6.3-8.2) g/dL Albumin (3.5-5.0) g/dL Lipase (23-300) U/L Urine Color (YELLOW) Urine Appearance (CLEAR) Urine pH (5-6) Ur Specific [place] (1.005-1.025) Urine Protein (Negative) Urine Ketones (NEGATIVE) Urine Blood (0-5) Michel/ul Urine Nitrite (NEGATIVE) Urine Bilirubin (NEGATIVE) Urine Urobilinogen (0-1) mg/dL Ur Leukocyte Esterase (NEGATIVE) Urine WBC (Auto) (0-5) /HPF Urine RBC (Auto) (0-2) /HPF U Epithel Cells (Auto) (FEW) /HPF Urine Bacteria (Auto) (NEGATIVE) /HPF Urine Mucus (Auto) (NEGATIVE) /HPF Urine Culture Reflexed (NO) Urine Glucose (NEGATIVE) mg/dL Urine HCG, Qual (Negative) - Progress Progress: improved, re-examined Progress Note: 04/09/21 10:16 25 years old is evaluated for generalized abdominal pain. Patient does have a history of multiple ovarian cyst in the past with cystectomy recently. She is given fluid bolus and morphine, on reevaluation her pain is much better. She has normal white count, grossly unremarkable chemistries. Does have UTI. She will be started on Cipro. CT showed multiple ovarian cyst and her I have obtained a pelvic ultrasound which showed multiple ovarian cysts. Hemorrhagic but no organ or rupture. Questionable endometriosis. Patient has seen [facility] CA[facility]ING OPERATOR in the past and was recommended to have total hysterectomy which she refused. She is advised to follow-up with her [facility] CA[facility]ING OPERATOR for reevaluation. Discussed signs symptoms of worsening needing return to ER which he seems understanding. Counseled pt/family regarding: lab results, diagnosis, need for follow-up, rad results - Departure Departure Disposition: Home Clinical Impression: UTI (urinary tract infection) Qualifiers: Urinary tract infection type: site unspecified Hematuria presence: without hematuria Qualified Code(s): N39.0 - Urinary tract infection, site not specified Ovarian cyst Qualifiers: Laterality: bilateral Qualified Code(s): N83.201 - Unspecified ovarian cyst, right side; N83.202 - Unspecified ovarian cyst, left side Condition: Stable Critical Care Time: No Referrals: LIAN REYES [Primary Care Provider] - Follow Up with PCP/3 days ANJELICA JUAREZ DO [ACTIVE STAFF] - (1-2 days for reevaluation) Instructions: Acute Abdomen (Belly Pain), Adult (DC), Ovarian Cyst (DC) Additional Instructions: Take Tylenol/ibuprofen as needed for pain. Drink plenty of fluids. Follow-up at your primary care and [facility] for reevaluation. Return to ER for intractable pain/vomiting/fever chills/diarrhea etc. Prescriptions: Ciprofloxacin [Cipro 500 MG] 500 mg PO BID #14 tablet
[2021-04-09 08:02] LABS: Absolute Neutrophil Ct (ANC) 4.03 (1.4-6.9); BASOPHIL % 0.3 % (0.0-0.4); Basophil (Absolute #) 0.02 (0-0.4); Eosinophil % 3.7 % (0.00-5.0); Eosinophil (Absolute #) 0.24 (0-0.5); Hematocrit 35.6 % (35-47); Hemoglobin 11.8 gm/dl (12.0-16.0); Lymphocyte (Absolute #) 1.63 (1.0-4.6); Lymphocytes % 25.1 % (24.0-44.0); Mean Cell Volume 85.8 fl (78-100); Mean Corpuscular Hemoglobin 28.4 pg (26-32); Mean Corpuscular Hgb Concent. 33.1 g/dl (32-36); Mean Platelet Volume 10.5 fl (7.5-11.0); Monocyte (Absolute #) 0.57 (0.0-1.3); Monocytes % 8.8 % (0.0-12.0); Neutrophil % 62.1 % (36.0-66.0); Platelet Count 249 K/mm3 (150-450); Red Blood Count 4.15 M/mm3 (4.1-5.4); Red Cell Distribution Width 12.8 % (11.5-14.0); White Blood Count 6.5 K/mm3 (4.0-10.5)
[2021-04-09] MEDS ORDERED: MORPHINE SULFATE 4 MG INJ ONE (08:05)
[2021-04-09 08:06] LABS: Appearance SLIGHTLY CLOUDY (CLEAR); Bacteria FEW /HPF (NEGATIVE); Bilirubin NEGATIVE (NEGATIVE); Blood LARGE Ery/ul (0-5); Epithelial Cells FEW /HPF (FEW); Glucose NEGATIVE (NEGATIVE); Ketones NEGATIVE (NEGATIVE); Leukocyte Esterase TRACE (NEGATIVE); Mucus MANY /HPF (NEGATIVE); Nitrite NEGATIVE (NEGATIVE); Protein,Urine Dip 30 (Negative); RBC 0-2 /HPF (0-2); Urobilinogen 4 mg/dL (0-1)
[2021-04-09] MEDS ORDERED: Sodium Chloride 0.9% 1000 ML 1,000 ML ONE (08:06)
[2021-04-09] MEDS ORDERED: Zofran 4 MG/2 ML VIAL ONE (08:06)
[2021-04-09 08:11] LABS: ALBUMIN 4.3 g/dL (3.5-5.0); ALKALINE PHOSPHATASE 55 U/L (38-126); ANION GAP 13.6 MEQ/L (5-15); BLOOD UREA NITROGEN 16 mg/dL (7-17); CHLORIDE 104 mmol/L (98-107); Calcium 9.2 mg/dL (8.4-10.2); Carbon Dioxide 26 mmol/L (22-30); Creatinine 1 0.66 mg/dL (0.52-1.04); EST GLOMERULAR FILTRATION RATE > 60.0 ML/MIN; Glucose 99 mg/dL (74-106); LIPASE 73 U/L (23-300); Potassium 3.6 mmol/L (3.5-5.1); SGOT/AST 19 U/L (14-36); SGPT/ALT 8 U/L (0-35); SODIUM 140 mmol/L (137-145); Total Protein 7.2 g/dL (6.3-8.2)
--- NOTE | 2021-04-09 09:04 | XRAY ---
Indication: Abdomen/pelvic pain. Nausea and vomiting. Multiple contiguous axial images obtained through the abdomen and pelvis using 80 cc Isovue 370 contrast. Comparison: December 18, 2020. Lung bases clear. Heart not enlarged. Noncontrasted stomach and bowel loops appear nonobstructed. Appendix not seen. There are now multiple prominent bilateral ovarian cysts, largest on the left measuring 3 cm. Largest right ovary cyst is 2.5 cm. No free fluid/air. Remaining liver, gallbladder, pancreas, spleen, adrenal glands, kidneys, ureters, bladder, uterus, and aorta are unremarkable. No pathologic retroperitoneal lymphadenopathy. Osseous structures intact. Impression: 1. Multiple prominent bilateral ovary cysts better evaluated with pelvis sonogram. 2. Remaining CT abdomen/pelvis with contrast exam is negative.
--- NOTE | 2021-04-09 09:53 | XRAY ---
Indication: Pelvic pain. Two-dimensional transvaginal pelvic sonogram performed. Comparison: August 15, 2019. Uterus remains anteverted today measuring 7.9 x 3.9 x 5.4 cm. No focal solid/cystic uterine mass. Endometrial stripe measures 7.2 mm in thickness with new small fluid present up to 5 mm in thickness. Endometrial cavity also demonstrates new tiny peripheral echodensities either blood products/clots versus polyps, largest 6 mm. Right ovary measures 4.9 x 3.5 x 4.1 cm and the left measures 5.2 x 3.9 x 4.8 cm with normal perfusion bilaterally. There are now multiple bilateral ovarian complex cysts with a few demonstrating layering debris, possible hemorrhagic cysts versus endometriomas. Largest cyst is on the left measuring 3.5 x 2.5 x 3.2 cm. No free fluid. Impression: 1. New fluid in the endometrial cavity with tiny echodensities either blood products versus polyps. 2. New large complex bilateral ovary cysts as detailed. Rule out hemorrhagic cysts versus endometriomas.
[2021-04-09 10:15] VITALS: BP 118/85; PULSE 52
[2021-04-09 10:19] VITALS: O2SAT 100
== END 2021-04-09 10:42 | disposition home or self-care (01) ==
LOC: ED 06:53
DX: N39.0 Urinary tract infection, site not specified (principal); N83.201 Unspecified ovarian cyst, right side
CPT/HCPCS: 36000; 36415; 74177; 76830; 80053; 81001; 83690; 84703; 85025; 87086; 96360; 96374; 96375; 99284; J2270; J2405

== ENCOUNTER 2022-01-18 12:04 | Emergency (ER) | payer OTHER ==
[2022-01-18] MEDS ORDERED: Sodium Chloride 0.9% 1000 ML 1,000 ML IV STA (12:20)
[2022-01-18] MEDS ORDERED: Hydromorphone 1 mg/ml Injection IV ONE (12:22)
[2022-01-18] MEDS ORDERED: Zofran 4 MG/2 ML VIAL IV ONE (12:22)
[2022-01-18 12:34] LABS: Absolute Neutrophil Ct (ANC) 2.17 (1.4-6.9); Basophil (Absolute #) 0.01 (0-0.4); Eosinophil % 1.1 % (0.00-5.0); Eosinophil (Absolute #) 0.03 (0-0.5); Hematocrit 35.2 % (35-47); Hemoglobin 11.8 gm/dl (12.0-16.0); Lymphocyte (Absolute #) 0.23 (1.0-4.6); Lymphocytes % 8.4 % (24.0-44.0); Mean Cell Volume 84.8 fl (78-100); Mean Corpuscular Hemoglobin 28.4 pg (26-32); Mean Corpuscular Hgb Concent. 33.5 g/dl (32-36); Mean Platelet Volume 9.9 fl (7.5-11.0); Monocytes % 10.9 % (0.0-12.0); Neutrophil % 79.2 % (36.0-66.0); Platelet Count 166 K/mm3 (150-450); Red Blood Count 4.15 M/mm3 (4.1-5.4); Red Cell Distribution Width 12.8 % (11.5-14.0); White Blood Count 2.7 K/mm3 (4.0-10.5)
[2022-01-18] MEDS ORDERED: Zofran 4 MG/2 ML VIAL ONE (12:34)
[2022-01-18] MEDS ORDERED: Sodium Chloride 0.9% 1000 ML 1,000 ML ONE (12:35)
[2022-01-18] MEDS ORDERED: Hydromorphone 1 mg/ml Injection ONE (12:35)
[2022-01-18 12:39] LABS: Appearance CLEAR (CLEAR); Bilirubin NEGATIVE (NEGATIVE); Dipstick done @ ? MAIN LAB; Glucose NEGATIVE (NEGATIVE); Ketones TRACE (NEGATIVE); Nitrite NEGATIVE (NEGATIVE); Protein,Urine Dip 30 (Negative); RBC TRACE-INTACT Ery/ul (0-5); Specific Gravity >=1.030 (1.005-1.025); Urobilinogen 1 mg/dL (0-1)
[2022-01-18 12:45] LABS: INR 1.28 (0.8-3.0); PROTIME 15.1 SECONDS (9.4-12.5)
[2022-01-18 12:48] LABS: Epithelial Cells RARE /HPF (FEW); Mucus MANY /HPF (NEGATIVE); RBC 0-2 /HPF (0-2)
[2022-01-18 12:50] LABS: AMYLASE 57 U/L (30-110); LIPASE 64 U/L (23-300)
[2022-01-18 12:52] LABS: Urine Cultured Indicated? NO
[2022-01-18 12:52] LABS: ALBUMIN 4.5 g/dL (3.5-5.0); ALKALINE PHOSPHATASE 63 U/L (38-126); ANION GAP 14.3 MEQ/L (5-15); BLOOD UREA NITROGEN 14 mg/dL (7-17); CHLORIDE 101 mmol/L (98-107); Calcium 9.1 mg/dL (8.4-10.2); Carbon Dioxide 25 mmol/L (22-30); Creatinine 1 0.78 mg/dL (0.52-1.04); EST GLOMERULAR FILTRATION RATE > 60.0 ML/MIN; Glucose 91 mg/dL (74-106); Potassium 3.4 mmol/L (3.5-5.1); SGOT/AST 22 U/L (14-36); SGPT/ALT 11 U/L (0-35); SODIUM 138 mmol/L (137-145); Total Protein 7.3 g/dL (6.3-8.2)
--- NOTE | 2022-01-18 13:43 | XRAY ---
Indication: Fever and cough. Comparison: July 14, 2018. Portable chest again demonstrates normal heart, lungs, and bony thorax.
[2022-01-18 14:05] LABS: INFLUENZA B NEGATIVE (NEGATIVE); RESPIRATORY SYNCTIAL VIRUS NEGATIVE (Negative); SARS-CoV-2 Xpert Express NEGATIVE (NEGATIVE)
[2022-01-18 14:06] LABS: INFLUENZA A POSITIVE (NEGATIVE)
[2022-01-18 14:09] LABS: Slide Review 1 YES
[2022-01-18 14:10] VITALS: BP 133/87; PULSE 100; O2SAT 99
--- NOTE | 2022-01-18 14:16 | ERPHSYRPT ---
- History of Present Illness Time Seen by Provider: 01/18/22 12:35 Source: patient Exam Limitations: no limitations Patient Subjective Stated Complaint: PT HERE FOR COUGH, VOMITING, LOW GRADE FEVER. HER ROOMMATE HAS FLU A Triage Nursing Assessment: PT ALERT, WALKED IN, RESP EASY, SKIN W/D/P HAS DRY HACKY COUGH, ACHES Physician History: Patient is a 26-year-old female who presents with a complaint of being sent 6 6 since yesterday a.m. She has not had any COVID-vaccine or flu vaccine she complains of fever chills sweats vomiting and a dry cough for the last 24 hours she has a temperature of 101.2 on arrival. Timing/Duration: yesterday Activities at Onset: none Severity of Dyspnea-Max: mild Severity of Dyspnea-Current: mild Possible Cause: occasional episodes Modifying Factors: Improves With: coughing Associated Symptoms: cough, fever, loss of appetite, lightheadedness, chills Allergies/Adverse Reactions: No Known Drug Allergies Allergy (Verified 01/18/22 12:25) Home Medications: Buspirone HCl [Buspar] 5 mg PO BID 02/10/21 [History] Hx Tetanus, Diphtheria Vaccination/Date Given: No Hx Influenza Vaccination/Date Given: No Hx Pneumococcal Vaccination/Date Given: No Immunizations Up to Date: Yes Travel Risk - International Travel Have you traveled outside of the country in past 3 weeks: No - Coronavirus Screening Are you exhibiting any of the following symptoms?: Yes Symptoms: Fever, Cough: New Onset, Vomiting/Diarrhea Close contact with a COVID-19 positive Pt in past 14-21 Days: No - Vaccine Status Have you recieved a Covid-19 vaccination: No - Review of Systems Constitutional: Fever, Chills Eyes: No Symptoms Ears, Nose, & Throat: No Symptoms Respiratory: Cough, Dyspnea Cardiac: No Chest Pain, No Edema, No Syncope Abdominal/Gastrointestinal: No Abdominal Pain, No Nausea, No Vomiting, No Diarrhea Genitourinary Symptoms: No Dysuria Musculoskeletal: No Back Pain, No Neck Pain Skin: No Rash Neurological: No Dizziness, No Focal Weakness, No Sensory Changes Psychological: No Symptoms Endocrine: No Symptoms All Other Systems: Reviewed and Negative - Past Medical History Pertinent Past Medical History: No Neurological History: No Pertinent History ENT History: No Pertinent History Cardiac History: Angina Respiratory History: No Pertinent History Endocrine Medical History: No Pertinent History Musculoskeletal History: No Pertinent History GI Medical History: No Pertinent History History: No Pertinent History Psycho-Social History: Anxiety, Depression Female Reproductive Disorders: Other Other Medical History: 2wk hospitalization at age 5 for e-coli. recent angina (from fingers to elbow) had recent EKG,september with normal ekg. cyst on ovary - Past Surgical History Past Surgical History: Yes Neuro Surgical History: No Pertinent History Cardiac: No Pertinent History Respiratory: No Pertinent History Gastrointestinal: No Pertinent History Genitourinary: No Pertinent History Musculoskeletal: No Pertinent History Female Surgical History: Other Other Surgical History: Cyst removed from left ovary 09/18/19 - Social History Smoking Status: Former smoker How long have you smoked: 10 yrs Exposure to second hand smoke: No Drug Use: marijuana Patient Lives Alone: No Significant Family History: no pertinent family hx - Female History Hx Last Menstrual Period: JANUARY 06 Hx Now: No - Nursing Vital Signs Nursing Vital Signs: Initial Vital Signs Temperature 100.2 F 01/18/22 12:19 Pulse Rate 115 H 01/18/22 12:19 Respiratory Rate 20 01/18/22 12:19 Blood Pressure 143/100 01/18/22 12:19 O2 Sat by Pulse Oximetry 100 01/18/22 12:19 Pain Scale Pain Intensity 0 - Physical Exam General Appearance: mild distress, alert Eye Exam: PERRL/EOMI Neck Exam: normal inspection, supple Respiratory Exam: crackles/rales, rhonchi Cardiovascular/Chest Exam: normal heart sounds, regular rate/rhythm Abdominal/Gastrointestinal Exam: soft, No tenderness, No distention, No mass Extremity Exam: non-tender, normal range of motion, normal inspection, no calf tenderness, no pedal edema Neurologic Exam: alert, 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, cooperative, tank calibrator II-XII nml as tested, sensation nml, No motor deficits Skin Exam: normal color, warm, No dry SpO2 Interpretation: normal SpO2: 99 O2 Delivery: Room Air - Course Nursing assessment & vital signs reviewed: Yes - Radiology Exams Chest X-ray Interpretation: Interpreted by me, Negative Ordered Tests: Active Orders 24 hr Category Date Time Status IV Insertion STAT Care 01/18/22 12:20 Active CHEST 1 VIEW (PORTABLE) Stat Exams 01/18/22 12:20 Completed AMYLASE Stat Lab 01/18/22 12:15 Completed BLOOD CULTURE Stat Lab 01/18/22 13:00 Received CBC W DIFF Stat Lab 01/18/22 12:15 Completed CMP Stat Lab 01/18/22 12:15 Completed HCG,QUALITATIVE URINE Stat Lab 01/18/22 12:50 Completed LIPASE Stat Lab 01/18/22 12:15 Completed Lactic Acid Stat Lab 01/18/22 12:20 Completed PROCALCITONIN Stat Lab 01/18/22 12:15 Completed PROTIME WITH INR Stat Lab 01/18/22 12:15 Completed UA W/RFX CULTURE Stat Lab 01/18/22 12:33 Completed Medication Summary Discontinued Medications Generic Name Dose Route Start Last Admin Trade Name Freq PRN Reason Stop Dose Admin Hydromorphone HCl 0.5 mg 01/18/22 12:22 01/18/22 12:37 Hydromorphone 1 Mg/1ml Inj 1 Mg/Ml Syringe IV 01/18/22 12:23 0.5 mg STAT ONE Administration Hydromorphone HCl Confirm 01/18/22 12:35 Hydromorphone 1 Mg/1ml Inj 1 Mg/Ml Syringe Administered 01/18/22 12:36 Dose 1 mg .ROUTE .STK-MED ONE Sodium Chloride 1,000 mls @ 999 mls/hr 01/18/22 12:20 01/18/22 12:36 Sodium Chloride 0.9% 1000 Ml IV 01/18/22 13:20 999 mls/hr .Q1H1M STA Administration Sodium Chloride Confirm 01/18/22 12:35 Sodium Chloride 0.9% 1000 Ml Administered 01/18/22 12:36 Dose 1,000 mls @ ud .ROUTE .STK-MED ONE Ondansetron HCl 4 mg 01/18/22 12:22 01/18/22 12:37 Ondansetron Hcl 4 Mg/2 Ml Vial IV 01/18/22 12:23 4 mg STAT ONE Administration Ondansetron HCl Confirm 01/18/22 12:34 Ondansetron Hcl 4 Mg/2 Ml Vial Administered 01/18/22 12:35 Dose 4 mg .ROUTE .STK-MED ONE Lab/Rad Data: Laboratory Result Diagrams 01/18/22 12:15 01/18/22 12:15 Laboratory Results 01/18/22 01/18/22 01/18/22 Range/Units 13:00 12:50 12:33 WBC (4.0-10.5) K/mm3 RBC (4.1-5.4) M/mm3 Hgb (12.0-16.0) gm/dl Hct (35-47) % MCV (78-100) fl MCH (26-32) pg MCHC (32-36) g/dl RDW (11.5-14.0) % Plt Count (150-450) K/mm3 MPV (7.5-11.0) fl Gran % (36.0-66.0) % Eos # (Auto) (0-0.5) Absolute Lymphs (auto) (1.0-4.6) Absolute Monos (auto) (0.0-1.3) Lymphocytes % (24.0-44.0) % Monocytes % (0.0-12.0) % Eosinophils % (0.00-5.0) % Basophils % (0.0-0.4) % Absolute Granulocytes (1.4-6.9) Basophils # (0-0.4) PT (9.4-12.5) SECONDS INR (0.8-3.0) Sodium (137-145) mmol/L Potassium (3.5-5.1) mmol/L Chloride (98-107) mmol/L Carbon Dioxide (22-30) mmol/L Anion Gap (5-15) MEQ/L BUN (7-17) mg/dL Creatinine (0.52-1.04) mg/dL Estimated GFR ML/MIN Glucose (74-106) mg/dL Lactic Acid (0.4-2.0) Calcium (8.4-10.2) mg/dL Total Bilirubin (0.2-1.3) mg/dL AST (14-36) U/L ALT (0-35) U/L Alkaline Phosphatase (38-126) U/L Serum Total Protein (6.3-8.2) g/dL Albumin (3.5-5.0) g/dL Amylase (30-110) U/L Lipase (23-300) U/L Procalcitonin (0.030-0.080) ng/mL Urinalys Dipstick Clnc MAIN LAB Urine Color YELLOW (YELLOW) Urine Appearance CLEAR (CLEAR) Urine pH 6.0 (5-6) Ur Specific Humphrey >=1.030 (1.005-1.025) POC Urine Protein Conf 30 (Negative) Urine Ketones TRACE (NEGATIVE) Urine Nitrite NEGATIVE (NEGATIVE) Urine Bilirubin NEGATIVE (NEGATIVE) Urine Urobilinogen 1 (0-1) mg/dL Urine Leukocytes NEGATIVE (NEGATIVE) Urine WBC (Auto) 3-5 (0-5) /HPF Urine RBC (Auto) 0-2 (0-2) /HPF U Epithel Cells (Auto) RARE (FEW) /HPF Urine Bacteria (Auto) NONE (NEGATIVE) /HPF Urine RBC TRACE-INTACT (0-5) Michel/ul Urine Mucus (Auto) MANY (NEGATIVE) /HPF Ur Culture Indicated? NO Urine Glucose NEGATIVE (NEGATIVE) mg/dL Urine HCG, Qual NEGATIVE (Negative) Influenza Type A Ag POSITIVE (NEGATIVE) Influenza Type B Ag NEGATIVE (NEGATIVE) RSV (PCR) NEGATIVE (Negative) SARS-CoV-2 (PCR) NEGATIVE (NEGATIVE) Slides for Path Review 01/18/22 01/18/22 01/18/22 Range/Units 12:20 12:15 12:15 WBC (4.0-10.5) K/mm3 RBC (4.1-5.4) M/mm3 Hgb (12.0-16.0) gm/dl Hct (35-47) % MCV (78-100) fl MCH (26-32) pg MCHC (32-36) g/dl RDW (11.5-14.0) % Plt Count (150-450) K/mm3 MPV (7.5-11.0) fl Gran % (36.0-66.0) % Eos # (Auto) (0-0.5) Absolute Lymphs (auto) (1.0-4.6) Absolute Monos (auto) (0.0-1.3) Lymphocytes % (24.0-44.0) % Monocytes % (0.0-12.0) % Eosinophils % (0.00-5.0) % Basophils % (0.0-0.4) % Absolute Granulocytes (1.4-6.9) Basophils # (0-0.4) PT (9.4-12.5) SECONDS INR (0.8-3.0) Sodium (137-145) mmol/L Potassium (3.5-5.1) mmol/L Chloride (98-107) mmol/L Carbon Dioxide (22-30) mmol/L Anion Gap (5-15) MEQ/L BUN (7-17) mg/dL Creatinine (0.52-1.04) mg/dL Estimated GFR ML/MIN Glucose (74-106) mg/dL Lactic Acid 0.5 (0.4-2.0) Calcium (8.4-10.2) mg/dL Total Bilirubin (0.2-1.3) mg/dL AST (14-36) U/L ALT (0-35) U/L Alkaline Phosphatase (38-126) U/L Serum Total Protein (6.3-8.2) g/dL Albumin (3.5-5.0) g/dL Amylase 57 (30-110) U/L Lipase 64 (23-300) U/L Procalcitonin 0.070 (0.030-0.080) ng/mL Urinalys Dipstick Clnc Urine Color (YELLOW) Urine Appearance (CLEAR) Urine pH (5-6) Ur Specific Humphrey (1.005-1.025) POC Urine Protein Conf (Negative) Urine Ketones (NEGATIVE) Urine Nitrite (NEGATIVE) Urine Bilirubin (NEGATIVE) Urine Urobilinogen (0-1) mg/dL Urine Leukocytes (NEGATIVE) Urine WBC (Auto) (0-5) /HPF Urine RBC (Auto) (0-2) /HPF U Epithel Cells (Auto) (FEW) /HPF Urine Bacteria (Auto) (NEGATIVE) /HPF Urine RBC (0-5) Michel/ul Urine Mucus (Auto) (NEGATIVE) /HPF Ur Culture Indicated? Urine Glucose (NEGATIVE) mg/dL Urine HCG, Qual (Negative) Influenza Type A Ag (NEGATIVE) Influenza Type B Ag (NEGATIVE) RSV (PCR) (Negative) SARS-CoV-2 (PCR) (NEGATIVE) Slides for Path Review 01/18/22 01/18/22 01/18/22 Range/Units 12:15 12:15 12:15 WBC 2.7 L (4.0-10.5) K/mm3 RBC 4.15 (4.1-5.4) M/mm3 Hgb 11.8 L (12.0-16.0) gm/dl Hct 35.2 (35-47) % MCV 84.8 (78-100) fl MCH 28.4 (26-32) pg MCHC 33.5 (32-36) g/dl RDW 12.8 (11.5-14.0) % Plt Count 166 (150-450) K/mm3 MPV 9.9 (7.5-11.0) fl Gran % 79.2 H (36.0-66.0) % Eos # (Auto) 0.03 (0-0.5) Absolute Lymphs (auto) 0.23 L (1.0-4.6) Absolute Monos (auto) 0.30 (0.0-1.3) Lymphocytes % 8.4 L (24.0-44.0) % Monocytes % 10.9 (0.0-12.0) % Eosinophils % 1.1 (0.00-5.0) % Basophils % 0.4 (0.0-0.4) % Absolute Granulocytes 2.17 (1.4-6.9) Basophils # 0.01 (0-0.4) PT 15.1 H (9.4-12.5) SECONDS INR 1.28 (0.8-3.0) Sodium 138 (137-145) mmol/L Potassium 3.4 L (3.5-5.1) mmol/L Chloride 101 (98-107) mmol/L Carbon Dioxide 25 (22-30) mmol/L Anion Gap 14.3 (5-15) MEQ/L BUN 14 (7-17) mg/dL Creatinine 0.78 (0.52-1.04) mg/dL Estimated GFR > 60.0 ML/MIN Glucose 91 (74-106) mg/dL Lactic Acid (0.4-2.0) Calcium 9.1 (8.4-10.2) mg/dL Total Bilirubin 0.50 (0.2-1.3) mg/dL AST 22 (14-36) U/L ALT 11 (0-35) U/L Alkaline Phosphatase 63 (38-126) U/L Serum Total Protein 7.3 (6.3-8.2) g/dL Albumin 4.5 (3.5-5.0) g/dL Amylase (30-110) U/L Lipase (23-300) U/L Procalcitonin (0.030-0.080) ng/mL Urinalys Dipstick Clnc Urine Color (YELLOW) Urine Appearance (CLEAR) Urine pH (5-6) Ur Specific Humphrey (1.005-1.025) POC Urine Protein Conf (Negative) Urine Ketones (NEGATIVE) Urine Nitrite (NEGATIVE) Urine Bilirubin (NEGATIVE) Urine Urobilinogen (0-1) mg/dL Urine Leukocytes (NEGATIVE) Urine WBC (Auto) (0-5) /HPF Urine RBC (Auto) (0-2) /HPF U Epithel Cells (Auto) (FEW) /HPF Urine Bacteria (Auto) (NEGATIVE) /HPF Urine RBC (0-5) Michel/ul Urine Mucus (Auto) (NEGATIVE) /HPF Ur Culture Indicated? Urine Glucose (NEGATIVE) mg/dL Urine HCG, Qual (Negative) Influenza Type A Ag (NEGATIVE) Influenza Type B Ag (NEGATIVE) RSV (PCR) (Negative) SARS-CoV-2 (PCR) (NEGATIVE) Slides for Path Review YES - Progress Progress: unchanged Air Movement: good Blood Culture(s) Obtained: No Antibiotics given: No - Departure Departure Disposition: Home Clinical Impression: Influenza A Condition: Stable Critical Care Time: No Referrals: LIAN REYES [Primary Care Provider] - Follow up/PCP as directed Prescriptions: Oseltamivir 75 mg [Tamiflu 75MG Capsule] 75 mg PO BID #10 cap
== END 2022-01-18 14:25 | disposition home or self-care (01) ==
LOC: ED 12:04
DX: J10.1 Influenza due to other identified influenza virus with other respiratory manifestations (principal); R50.9 Fever, unspecified; R11.2 Nausea with vomiting, unspecified; R05.1 Acute cough
CPT/HCPCS: 0241U; 36000; 36415; 71045; 80053; 81015; 82150; 83605; 83690; 84145; 84703; 85025; 85610; 87040; 96374; 96375; 99284; J1170; J2405

== ENCOUNTER 2022-04-23 17:57 | Emergency (ER) | payer OTHER ==
[2022-04-23] MEDS ORDERED: Adacel Vial IM ONE ×2 (18:10→18:14)
[2022-04-23 18:14] VITALS: BP 139/97; PULSE 66; O2SAT 99
--- NOTE | 2022-04-23 18:39 | ERPHSYRPT ---
- History of Present Illness Time Seen by Provider: 04/23/22 18:15 Source: patient Exam Limitations: no limitations Patient Subjective Stated Complaint: Finger injury Triage Nursing Assessment: Patient ambulated back to ED and transferred self to bed. Patient A+O X 3. Patient's skin pink, warm and dry. Patient complains of right hand 2nd digit pain after accidently slamming her hand/finger in a door. Right hand, 2nd digit noted to be red with 0.2cm laceration noted to tip of finger. Patient complains of pain 8/10. Physician History: Patient is a 26-year-old white female who smashed her right index finger in a door at home. She complains of pain only in the finger has no other injury this occurred just prior to arrival. She is also due for an Adacel injection. Occurred: just prior to arrival Method of Injury: direct blow Quality: throbbing Severity of Pain-Max: moderate Severity of Pain-Current: moderate Extremities Pain Location: 2nd finger: right (Superficial laceration to the pulp of the distal phalanx of the right index finger) Modifying Factors: Improves With: movement Associated Symptoms: none Allergies/Adverse Reactions: No Known Drug Allergies Allergy (Verified 04/23/22 18:08) Hx Tetanus, Diphtheria Vaccination/Date Given: No Hx Influenza Vaccination/Date Given: No Hx Pneumococcal Vaccination/Date Given: No Immunizations Up to Date: Yes Travel Risk - International Travel Have you traveled outside of the country in past 3 weeks: No - Coronavirus Screening Are you exhibiting any of the following symptoms?: No Close contact with a COVID-19 positive Pt in past 14-21 Days: No - Vaccine Status Have you recieved a Covid-19 vaccination: No - Review of Systems Constitutional: No Fever, No Chills Eyes: No Symptoms Ears, Nose, & Throat: No Symptoms Respiratory: No Cough, No Dyspnea Cardiac: No Chest Pain, No Edema, No Syncope Abdominal/Gastrointestinal: No Abdominal Pain, No Nausea, No Vomiting, No Diarrhea Genitourinary Symptoms: No Dysuria Musculoskeletal: Joint Pain, Joint Swelling, No Back Pain, No Neck Pain Skin: No Rash Neurological: No Dizziness, No Focal Weakness, No Sensory Changes Psychological: No Symptoms Endocrine: No Symptoms All Other Systems: Reviewed and Negative - Past Medical History Pertinent Past Medical History: No Neurological History: No Pertinent History ENT History: No Pertinent History Cardiac History: Angina Respiratory History: No Pertinent History Endocrine Medical History: No Pertinent History Musculoskeletal History: No Pertinent History GI Medical History: No Pertinent History History: No Pertinent History Psycho-Social History: Anxiety, Depression Female Reproductive Disorders: Other Other Medical History: 2wk hospitalization at age 5 for e-coli. recent angina (from fingers to elbow) had recent EKG,september with normal ekg. cyst on ovary - Past Surgical History Past Surgical History: Yes Neuro Surgical History: No Pertinent History Cardiac: No Pertinent History Respiratory: No Pertinent History Gastrointestinal: No Pertinent History Genitourinary: No Pertinent History Musculoskeletal: No Pertinent History Female Surgical History: Other Other Surgical History: Cyst removed from left ovary 09/18/19 - Social History Smoking Status: Former smoker How long have you smoked: 10 yrs Exposure to second hand smoke: No Drug Use: marijuana Patient Lives Alone: No Significant Family History: no pertinent family hx - Female History Hx Last Menstrual Period: currently Hx Now: No - Nursing Vital Signs Nursing Vital Signs: Initial Vital Signs Temperature 97.6 F 04/23/22 18:09 Pulse Rate 66 04/23/22 18:09 Respiratory Rate 18 04/23/22 18:09 Blood Pressure 139/97 04/23/22 18:09 O2 Sat by Pulse Oximetry 99 04/23/22 18:09 Pain Scale Pain Intensity 8 - Physical Exam General Appearance: moderate distress Eyes, Ears, Nose, Throat Exam: normal ENT inspection Neck Exam: normal inspection, non-tender, supple Cardiovascular/Respiratory Exam: normal breath sounds, no respiratory distress Back Exam: normal inspection, normal range of motion Shoulder Exam: normal inspection, non-tender Elbow/Forearm Exam: normal inspection, non-tender Wrist Exam: normal inspection, non-tender Hand Exam: bone tenderness (There is tenderness to the distal phalanx of the right index finger no deformity), limited ROM, soft tissue tenderness Neuro/Tendon Exam: normal sensation, normal motor functions Mental Status Exam: alert, 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 Skin Exam: normal color, warm, dry, laceration (Serration superficial to the distal pad of the right index finger distal phalanx) SpO2 Interpretation: normal SpO2: 99 O2 Delivery: Room Air Procedures - Splinting Time of Procedure: 18:38 Location of Splint: Right, Hand (Index finger) Type of Splint: Foam Pad Finger Splint Splint Applied By: ED Nurse Pre-Proc Neuro Vasc Exam: normal Post-Proc Neuro Vasc Exam: neurovascular intact - Laceration/Wound Repair Right Finger Time of Procedure: 18:40 (Laceration does not require suturing wound closed with sterile dressing) Wound Location: Right, hand (Index finger) Wound Length (cm): 1 Wound's Depth, Shape: superficial Wound Explored: clean Irrigated: Yes Hibiclens Prep: Yes - Course Nursing assessment & vital signs reviewed: Yes - Radiology Exams Right Hand X-ray Interpretation: Interpreted by me, Other (EXTR nondisplaced nonangulated of the distal phalanx.) Ordered Tests: Active Orders 24 hr Category Date Time Status HAND (MINIMUM 3 VIEWS) Stat Exams 04/23/22 18:08 Taken Medication Summary Discontinued Medications Generic Name Dose Route Start Last Admin Trade Name Freq PRN Reason Stop Dose Admin Diphtheria/Tetanus/Acell Pertussis 0.5 ml 04/23/22 18:10 04/23/22 18:15 Tdap --Diph,Pertuss(Acell),Tet Vac/Pf 0.5 Ml Vial IM 04/23/22 18:11 0.5 ml .ONCE ONE Administration Diphtheria/Tetanus/Acell Pertussis Confirm 04/23/22 18:14 Tdap --Diph,Pertuss(Acell),Tet Vac/Pf 0.5 Ml Vial Administered 04/23/22 18:15 Dose 0.5 ml IM .STK-MED ONE - Departure Departure Disposition: Home Clinical Impression: Fracture of distal phalanx of finger of right hand, Finger laceration Condition: Stable Critical Care Time: No Referrals: LIAN REYES [Primary Care Provider] - Follow up/PCP as directed Instructions: Finger Fracture (DC) Prescriptions: Hydrocodone/Acetaminophen [Hydrocodone-Acetamin 5-325 mg] 1 tab PO Q6HPRN PRN 3 Days #12 tablet MDD 4 PRN Reason: Pain
--- NOTE | 2022-04-23 21:30 | XRAY ---
Indication: 2nd finger pain and swelling following crush injury. Comparison: None 3 view right hand demonstrates nondisplaced transverse fracture shaft 2nd distal phalanx. Incidental 4th finger ring. No other bony, articular, or soft tissue abnormalities.
== END 2022-04-23 18:49 | disposition home or self-care (01) ==
LOC: ED 17:57
DX: S62.660A Nondisplaced fracture of distal phalanx of right index finger, initial encounter for closed fracture (principal); S61.210A Laceration without foreign body of right index finger without damage to nail, initial encounter; W23.0XXA Caught, crushed, jammed, or pinched between moving objects, initial encounter; M79.644 Pain in right finger(s); Z79.891 Long term (current) use of opiate analgesic; Z28.310 Unvaccinated for COVID-19
CPT/HCPCS: 73130; 90471; 90715; 99283

== ENCOUNTER 2023-06-10 09:33 | Emergency (ER) | payer OTHER ==
--- NOTE | 2023-06-10 09:41 | ERPHSYRPT ---
- History of Present Illness Time Seen by Provider: 06/10/23 09:41 Historian: patient Exam Limitations: no limitations Physician History: This is a 27-year-old white female patient of Dr. Davila who has been diagnosed with angina in the past but is never seen a assembly technician or had a cardiac catheterization in the past. She has no diagnosed coronary artery disease. Teresa kahn has been having intermittent right-sided chest pain that is described as sharp and radiates straight through to her back on the right side into the right axilla area. She is not short of breath. She has not had a cough. She has not had fevers. Today the pain was more intense and she became concerned. Patient has a history of anxiety and depression. She takes no medications chronically and she has no known drug allergies. Patient states she is not under significant amount of stress. Timing/Duration: week(s) (1) Activities at Onset: none Quality: sharpness, stabbing Location: other (Right anterior chest) Chest Pain Radiation: arm (Right side right axilla), back Severity of Pain-Max: mild Severity of Pain-Current: mild Modifying Factors: Improves With: nothing Associated Symptoms: denies symptoms Prior Chest Pain/Cardiac Workup: no prior chest pain Nitro Today/Relief: no nitro taken today Aspirin Treatment Today: 81 mg x 4, provided by ED Allergies/Adverse Reactions: No Known Drug Allergies Allergy (Verified 06/10/23 09:35) Home Medications: No Reportable Medications [No Reported Medications] 06/10/23 [History] Hx Tetanus, Diphtheria Vaccination/Date Given: No Hx Influenza Vaccination/Date Given: No Hx Pneumococcal Vaccination/Date Given: No Travel Risk - International Travel Have you traveled outside of the country in past 3 weeks: No - Coronavirus Screening Are you exhibiting any of the following symptoms?: No Close contact with a COVID-19 positive Pt in past 14-21 Days: No - Vaccine Status Have you recieved a Covid-19 vaccination: No - Review of Systems Constitutional: No Symptoms Eyes: No Symptoms Ears, Nose, & Throat: No Symptoms Respiratory: No Symptoms Cardiac: Chest Pain Abdominal/Gastrointestinal: No Symptoms Genitourinary Symptoms: No Symptoms Musculoskeletal: No Symptoms Skin: No Symptoms Neurological: No Symptoms Psychological: No Symptoms Endocrine: No Symptoms Hematologic/Lymphatic: No Symptoms Immunological/Allergic: No Symptoms All Other Systems: Reviewed and Negative - Past Medical History Pertinent Past Medical History: No Neurological History: No Pertinent History ENT History: No Pertinent History Cardiac History: Angina Respiratory History: No Pertinent History Endocrine Medical History: No Pertinent History Musculoskeletal History: No Pertinent History GI Medical History: No Pertinent History History: No Pertinent History Psycho-Social History: Anxiety, Depression Female Reproductive Disorders: Other Other Medical History: 2wk hospitalization at age 5 for e-coli. recent angina (from fingers to elbow) had recent EKG,september with normal ekg. cyst on ovary - Past Surgical History Past Surgical History: Yes Neuro Surgical History: No Pertinent History Cardiac: No Pertinent History Respiratory: No Pertinent History Gastrointestinal: No Pertinent History Genitourinary: No Pertinent History Musculoskeletal: No Pertinent History Female Surgical History: Other Other Surgical History: Cyst removed from left ovary 09/18/19 - Social History Smoking Status: Former smoker How long have you smoked: 10 yrs Exposure to second hand smoke: No Drug Use: marijuana Patient Lives Alone: No Significant Family History: no pertinent family hx - Nursing Vital Signs Nursing Vital Signs: Initial Vital Signs Temperature 97.7 F 06/10/23 09:33 Pain Scale Pain Intensity 8 - Physical Exam General Appearance: no apparent distress, alert, anxiety Eye Exam: PERRL/EOMI, eyes nml inspection Ears, Nose, Throat Exam: normal ENT inspection, moist mucous membranes Neck Exam: normal inspection, non-tender, supple, full range of motion Respiratory Exam: normal breath sounds, chest tenderness, lungs clear, airway intact, No respiratory distress Cardiovascular Exam: regular rate/rhythm, normal heart sounds, normal peripheral pulses Gastrointestinal/Abdomen Exam: soft, normal bowel sounds, No tenderness Pelvic Exam: not done Rectal Exam: not done Back Exam: normal inspection, normal range of motion, No CVA tenderness, No vertebral tenderness Extremity Exam: normal inspection, normal range of motion, pelvis stable Neurologic Exam: alert, 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, cooperative, experience design director II-XII nml as tested, no rmal mood/affect, nml cerebellar function, nml station & gait, sensation nml Skin Exam: normal color, warm, dry Lymphatic Exam: No adenopathy SpO2 Interpretation: normal O2 Delivery: Room Air - Course Nursing assessment & vital signs reviewed: Yes EKG Interpreted by Me: RATE (74), Sinus Rhythm, NORMAL AXIS, NORMAL INTERVALS, NORMAL QRS, NORMAL ST-T, Other (There are no acute ischemic changes on today's twelve-lead EKG. The patient is a normal sinus rhythm. This is compared to twelve-lead EKG that was performed on 07/26/2019.) Ordered Tests: Active Orders 24 hr Category Date Time Status EKG-ER Only STAT Care 06/10/23 09:54 Active IV Insertion STAT Care 06/10/23 09:54 Active Pulse Oximetry (ED) STAT Care 06/10/23 09:54 Active CHEST 1 VIEW (PORTABLE) Stat Exams 06/10/23 09:54 Completed CBC W DIFF Stat Lab 06/10/23 09:54 Completed CMP Stat Lab 06/10/23 09:54 Completed D-DIMER QUANTITATIVE Stat Lab 06/10/23 09:54 Completed PROTIME WITH INR Stat Lab 06/10/23 09:54 Completed TROPONIN Q4H Lab 06/10/23 10:00 Completed TROPONIN Q4H Lab 06/10/23 14:00 Ordered TROPONIN Q4H Lab 06/10/23 18:00 Ordered Medication Summary Discontinued Medications Generic Name Dose Route Start Last Admin Trade Name Princess PRN Reason Stop Dose Admin Aspirin 324 mg 06/10/23 09:54 06/10/23 10:17 Aspirin 81 Mg Tab.Chew PO 06/10/23 09:55 324 mg STAT ONE Administration Aspirin Confirm 06/10/23 10:08 Aspirin 81 Mg Tab.Chew Administered 06/10/23 10:09 Dose 324 mg .ROUTE .STK-MED ONE Lab/Rad Data: Laboratory Result Diagrams 06/10/23 09:54 06/10/23 09:54 Laboratory Results 06/10/23 06/10/23 06/10/23 Range/Units 10:00 09:54 09:54 WBC (4.0-10.5) x10^3/uL RBC (4.1-5.4) x10^6/uL Hgb (12.0-16.0) g/dL Hct (35-47) % MCV (78-100) fL MCH (26-32) pg MCHC (32-36) g/dL RDW (11.5-14.0) % Plt Count (150-450) x10^3/uL MPV (7.5-11.0) fL Gran % (36.0-66.0) % Immature Gran % (Auto) (0.00-0.4) % Nucleat RBC Rel Count (0.00-0.1) % Eos # (Auto) (0-0.5) x10^3/uL Immature Gran # (Auto) (0.00-0.03) x10^3u/L Absolute Lymphs (auto) (1.0-4.6) x10^3/uL Absolute Monos (auto) (0.0-1.3) x10^3/uL Absolute Nucleated RBC (0.00-0.01) x10^3u/L Lymphocytes % (24.0-44.0) % Monocytes % (0.0-12.0) % Eosinophils % (0.00-5.0) % Basophils % (0.0-0.4) % Absolute Granulocytes (1.4-6.9) x10^3/uL Basophils # (0-0.4) x10^3/uL PT 11.8 (9.4-12.5) SECONDS INR 1.09 (0.8-3.0) D-Dimer < 0.19 (0.0-0.50) mg/L Sodium 137 (137-145) mmol/L Potassium 4.2 (3.5-5.1) mmol/L Chloride 108 H (98-107) mmol/L Carbon Dioxide 22 (22-30) mmol/L Anion Gap 11.6 (5-15) MEQ/L BUN 16 (7-17) mg/dL Creatinine 0.76 (0.52-1.04) mg/dL Estimated GFR > 60.0 ML/MIN Glucose 92 (74-106) mg/dL Calcium 9.2 (8.4-10.2) mg/dL Total Bilirubin 0.80 (0.2-1.3) mg/dL AST 23 (14-36) U/L ALT 11 (0-35) U/L Alkaline Phosphatase 41 (38-126) U/L Troponin I < 0.012 (0.000-0.034) ng/mL Serum Total Protein 6.9 (6.3-8.2) g/dL Albumin 4.2 (3.5-5.0) g/dL 06/10/23 Range/Units 09:54 WBC 4.6 (4.0-10.5) x10^3/uL RBC 3.90 L (4.1-5.4) x10^6/uL Hgb 11.2 L (12.0-16.0) g/dL Hct 33.6 L (35-47) % MCV 86.2 (78-100) fL MCH 28.7 (26-32) pg MCHC 33.3 (32-36) g/dL RDW 12.5 (11.5-14.0) % Plt Count 183 (150-450) x10^3/uL MPV 10.1 (7.5-11.0) fL Gran % 63.8 (36.0-66.0) % Immature Gran % (Auto) 0.4 (0.00-0.4) % Nucleat RBC Rel Count 0.0 (0.00-0.1) % Eos # (Auto) 0.08 (0-0.5) x10^3/uL Immature Gran # (Auto) 0.02 (0.00-0.03) x10^3u/L Absolute Lymphs (auto) 1.19 (1.0-4.6) x10^3/uL Absolute Monos (auto) 0.34 (0.0-1.3) x10^3/uL Absolute Nucleated RBC 0.00 (0.00-0.01) x10^3u/L Lymphocytes % 26.0 (24.0-44.0) % Monocytes % 7.4 (0.0-12.0) % Eosinophils % 1.7 (0.00-5.0) % Basophils % 0.7 (0.0-0.4) % Absolute Granulocytes 2.92 (1.4-6.9) x10^3/uL Basophils # 0.03 (0-0.4) x10^3/uL PT (9.4-12.5) SECONDS INR (0.8-3.0) D-Dimer (0.0-0.50) mg/L Sodium (137-145) mmol/L Potassium (3.5-5.1) mmol/L Chloride (98-107) mmol/L Carbon Dioxide (22-30) mmol/L Anion Gap (5-15) MEQ/L BUN (7-17) mg/dL Creatinine (0.52-1.04) mg/dL Estimated GFR ML/MIN Glucose (74-106) mg/dL Calcium (8.4-10.2) mg/dL Total Bilirubin (0.2-1.3) mg/dL AST (14-36) U/L ALT (0-35) U/L Alkaline Phosphatase (38-126) U/L Troponin I (0.000-0.034) ng/mL Serum Total Protein (6.3-8.2) g/dL Albumin (3.5-5.0) g/dL - Progress Progress: improved, re-examined Air Movement: good Progress Note: 06/10/23 10:45 This patient's medical issue is 1 of moderate complexity. Level of complexity in the work-up performed is based on review of the patient's past medical history, medication list, drug allergy list, history of present illness and physical findings on examination. This patient's work-up includes placement of intravenous line, twelve-lead EKG, D-dimer level, troponin level, CBC, CMP and chest x-ray. The chest x-ray was interpreted by the radiologist and I reviewed the impression. There is no evidence of any acute cardiopulmonary process. I reviewed the twelve-lead EKG and there are no acute ischemic changes on today's twelve-lead EKG. The troponin level is pending. The remainder of the lab results have returned and I interpreted them. She has no acute, emergent medical issue at this time. If the troponin level is normal, we will discharge her to home with instructions to follow-up with her primary care provider and assembly technician for further evaluation and management. Blood Culture(s) Obtained: No Antibiotics given: No Counseled pt/family regarding: lab results, diagnosis, need for follow-up, rad results Medical Desision Making - Independent Historian Additional History obtained from: Family - Diagnostic Testing Diagnostic test were ordered, analyzed, and reviewed by me: Yes Radiological Interpretation: Reviewed by me, Teleradiologist Report - Risk of complications Minimal Risk: Minimal risk of morbidity - Departure Departure Disposition: Home Clinical Impression: Angina at rest Condition: Stable Critical Care Time: No Referrals: LIAN DAVILA [Primary Care Provider] - Follow up/PCP as directed Additional Instructions: Take a daily aspirin. Drink plenty of fluids. Call your primary care provider today, 06/10/2023, for further evaluation and management including referral to a assembly technician or other cardiac work-up if indicated.
[2023-06-10 09:47] VITALS: TEMP 97.7
[2023-06-10] MEDS ORDERED: BABY ASPIRIN 81 MG CHEW PO ONE (09:54)
[2023-06-10] MEDS ORDERED: BABY ASPIRIN 81 MG CHEW ONE (10:08)
--- NOTE | 2023-06-10 10:21 | XRAY ---
Indication: Chest pain. Comparison: January 18, 2022 Portable chest again demonstrates normal heart, lungs, and bony thorax.
[2023-06-10 10:32] LABS: Absolute Neutrophil Ct (ANC) 2.92 x10^3/uL (1.4-6.9); BASOPHIL % 0.7 % (0.0-0.4); Basophil (Absolute #) 0.03 x10^3/uL (0-0.4); Eosinophil % 1.7 % (0.00-5.0); Eosinophil (Absolute #) 0.08 x10^3/uL (0-0.5); Hematocrit 33.6 % (35-47); Hemoglobin 11.2 g/dL (12.0-16.0); IMMATURE GRAN # 0.02 x10^3u/L (0.00-0.03); IMMATURE GRAN % 0.4 % (0.00-0.4); Lymphocyte (Absolute #) 1.19 x10^3/uL (1.0-4.6); Mean Cell Volume 86.2 fL (78-100); Mean Corpuscular Hemoglobin 28.7 pg (26-32); Mean Corpuscular Hgb Concent. 33.3 g/dL (32-36); Mean Platelet Volume 10.1 fL (7.5-11.0); Monocyte (Absolute #) 0.34 x10^3/uL (0.0-1.3); Monocytes % 7.4 % (0.0-12.0); Neutrophil % 63.8 % (36.0-66.0); Platelet Count 183 x10^3/uL (150-450); Red Cell Distribution Width 12.5 % (11.5-14.0); White Blood Count 4.6 x10^3/uL (4.0-10.5)
[2023-06-10 10:38] LABS: ALBUMIN 4.2 g/dL (3.5-5.0); ALKALINE PHOSPHATASE 41 U/L (38-126); ANION GAP 11.6 MEQ/L (5-15); BLOOD UREA NITROGEN 16 mg/dL (7-17); CHLORIDE 108 mmol/L (98-107); Calcium 9.2 mg/dL (8.4-10.2); Carbon Dioxide 22 mmol/L (22-30); Creatinine 1 0.76 mg/dL (0.52-1.04); D-DIMER QUANTITATIVE < 0.19 mg/L (0.0-0.50); EST GLOMERULAR FILTRATION RATE > 60.0 ML/MIN; Glucose 92 mg/dL (74-106); INR 1.09 (0.8-3.0); PROTIME 11.8 SECONDS (9.4-12.5); Potassium 4.2 mmol/L (3.5-5.1); SGOT/AST 23 U/L (14-36); SGPT/ALT 11 U/L (0-35); SODIUM 137 mmol/L (137-145); Total Protein 6.9 g/dL (6.3-8.2)
[2023-06-10 10:48] VITALS: O2SAT 100
[2023-06-10 11:23] VITALS: BP 120/80; PULSE 66; RESP 17
== END 2023-06-10 11:32 | disposition home or self-care (01) ==
LOC: ED 09:33
DX: I20.8 Other forms of angina pectoris (principal); Z28.310 Unvaccinated for COVID-19
CPT/HCPCS: 36000; 36415; 71045; 80053; 84484; 85025; 85379; 85610; 93005; 94760; 99284; A9270-GY

== ENCOUNTER 2023-06-30 00:34 | Emergency (ER) | payer OTHER ==
[2023-06-30 00:44] VITALS: TEMP 99
[2023-06-30] MEDS ORDERED: TYLENOL 325 MG PO ONE (00:53)
[2023-06-30] MEDS ORDERED: Sodium Chloride 0.9% 1000 ML 1,000 ML IV STA (00:53)
[2023-06-30] MEDS ORDERED: TYLENOL 325 MG ONE (01:02)
[2023-06-30 01:25] LABS: Group A Strep NOT DETECTED (NEGATIVE)
[2023-06-30 01:36] LABS: INFLUENZA A NEGATIVE (NEGATIVE); INFLUENZA B NEGATIVE (NEGATIVE); RESPIRATORY SYNCTIAL VIRUS NEGATIVE (NEGATIVE)
[2023-06-30 01:38] LABS: SARS-CoV-2 Xpert Express POSITIVE (NEGATIVE)
[2023-06-30 01:39] VITALS: BP 121/87
--- NOTE | 2023-06-30 01:53 | ERPHSYRPT ---
- History of Present Illness Time Seen by Provider: 06/30/23 01:00 Source: patient Exam Limitations: no limitations Patient Subjective Stated Complaint: body aches, sorethroat, headache, productive cough that started less than 12 hrs ago, pt states "I think I have COVID. My grandma just got diagnosed with COVID." Triage Nursing Assessment: pt ambulatory to bed by self, pt alert and oriented x3, skin pwd, pt c/o body aches, sorethroat, headache, productive cough that started on tuesday afternoon, pt afebrile, lung sounds clear Physician History: Patient a 27-year-old female presents to our ED with concern for possible COVID. Patient is experiencing body aches sore throat and a slight frontal headache. No fever. No nausea vomiting or diarrhea. No rash. No shortness of breath. No chest pain. Patient states her grandmother was recently diagnosed with COVID. Patient was exposed and is concerned that she currently may have COVID. She is otherwise healthy. Patient voices no other complaints or concerns at this time. Portions of this note were created with voice recognition technology. There may be grammatical, spelling, punctuation or sound alike errors Timing/Duration: today Severity: moderate Allergies/Adverse Reactions: No Known Drug Allergies Allergy (Verified 06/30/23 00:42) Home Medications: No Reportable Medications [No Reported Medications] 06/10/23 [History] Hx Tetanus, Diphtheria Vaccination/Date Given: Yes Hx Influenza Vaccination/Date Given: Yes Hx Pneumococcal Vaccination/Date Given: No Immunizations Up to Date: No Travel Risk - International Travel Have you traveled outside of the country in past 3 weeks: No - Coronavirus Screening Are you exhibiting any of the following symptoms?: Yes Symptoms: Cough: New Onset, Headaches/Body Aches/Fatigue Close contact with a COVID-19 positive Pt in past 14-21 Days: Yes - Vaccine Status Have you recieved a Covid-19 vaccination: No - Review of Systems Constitutional: No Symptoms, No Fever, No Chills Eyes: No Symptoms Ears, Nose, & Throat: No Symptoms Respiratory: No Symptoms, No Cough, No Dyspnea Cardiac: No Symptoms, No Chest Pain, No Edema, No Syncope Abdominal/Gastrointestinal: No Symptoms, No Abdominal Pain, No Nausea, No Vomiting, No Diarrhea Genitourinary Symptoms: No Symptoms, No Dysuria Musculoskeletal: No Symptoms, No Back Pain, No Neck Pain Skin: No Symptoms, No Rash Neurological: No Symptoms, No Dizziness, No Focal Weakness, No Sensory Changes Psychological: No Symptoms Endocrine: No Symptoms Hematologic/Lymphatic: No Symptoms Immunological/Allergic: No Symptoms All Other Systems: Reviewed and Negative - Past Medical History Pertinent Past Medical History: No Neurological History: No Pertinent History ENT History: No Pertinent History Cardiac History: Angina Respiratory History: No Pertinent History Endocrine Medical History: No Pertinent History Musculoskeletal History: No Pertinent History GI Medical History: No Pertinent History History: No Pertinent History Psycho-Social History: Anxiety, Depression Female Reproductive Disorders: Other Other Medical History: 2wk hospitalization at age 5 for e-coli. recent angina (from fingers to elbow) had recent EKG,september with normal ekg. cyst on ovary - Past Surgical History Past Surgical History: Yes Neuro Surgical History: No Pertinent History Cardiac: No Pertinent History Respiratory: No Pertinent History Gastrointestinal: No Pertinent History Genitourinary: No Pertinent History Musculoskeletal: No Pertinent History Female Surgical History: Other Other Surgical History: Cyst removed from left ovary 09/18/19 - Social History Smoking Status: Former smoker How long have you smoked: 10 yrs Exposure to second hand smoke: No Drug Use: marijuana Patient Lives Alone: No Significant Family History: no pertinent family hx - Female History Hx Last Menstrual Period: 06/26/23 Hx Now: No - Nursing Vital Signs Nursing Vital Signs: Initial Vital Signs Temperature 99.0 F 06/30/23 00:43 Pulse Rate 105 H 06/30/23 00:43 Respiratory Rate 18 06/30/23 00:43 Blood Pressure 127/82 06/30/23 00:43 O2 Sat by Pulse Oximetry 98 06/30/23 00:43 Pain Scale Pain Intensity 8 - Physical Exam General Appearance: no apparent distress, alert Eye Exam: PERRL/EOMI, eyes nml inspection Ears, Nose, Throat Exam: normal ENT inspection, TMs normal, pharynx normal, moist mucous membranes Neck Exam: normal inspection, non-tender, supple, full range of motion Respiratory Exam: normal breath sounds, lungs clear, No respiratory distress Cardiovascular Exam: regular rate/rhythm, normal heart sounds, normal peripheral pulses Gastrointestinal/Abdomen Exam: soft, normal bowel sounds, No tenderness, No mass Back Exam: normal inspection, normal range of motion, No CVA tenderness, No vertebral tenderness Extremity Exam: normal inspection, normal range of motion, pelvis stable Neurologic Exam: alert, 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, cooperative, normal mood/affect, nml cerebellar function, nml station & gait, sensation nml, No motor deficits Skin Exam: normal color, warm, dry, No rash Lymphatic Exam: No adenopathy SpO2 Interpretation: normal SpO2: 96 O2 Delivery: Room Air - Course Nursing assessment & vital signs reviewed: Yes Ordered Tests: Medication Summary Discontinued Medications Generic Name Dose Route Start Last Admin Trade Name Princess PRN Reason Stop Dose Admin Acetaminophen 975 mg 06/30/23 00:53 06/30/23 01:04 Acetaminophen 325 Mg Tablet PO 06/30/23 00:54 975 mg STAT ONE Administration Acetaminophen Confirm 06/30/23 01:02 Acetaminophen 325 Mg Tablet Administered 06/30/23 01:03 Dose 975 mg .ROUTE .STK-MED ONE Sodium Chloride 1,000 mls @ 999 mls/hr 06/30/23 00:53 06/30/23 00:59 Sodium Chloride 0.9% 1000 Ml IV 06/30/23 01:53 Not Given .Q1H1M STA Lab/Rad Data: Laboratory Results 06/30/23 Range/Units 00:57 Influenza Type A Ag NEGATIVE (NEGATIVE) Influenza Type B Ag NEGATIVE (NEGATIVE) RSV (PCR) NEGATIVE (NEGATIVE) SARS-CoV-2 (PCR) POSITIVE A (NEGATIVE) Group A Strep Antibody NOT DETECTED (NEGATIVE) - Progress Progress: improved Progress Note: Patient is a 27-year-old female presents to the emergency department for evaluation of a viral syndrome. Patient complains of body aches sore throat frontal headache. Symptoms have been ongoing for approximately 12 hours. Patient admits to COVID exposure. Patient's grandmother recently diagnosed with COVID. Patient concerned for the same. She has no other symptomology. No chest pain or shortness of breath. No tachypnea. No abnormal breath sounds. Normal oxygenation. no nausea vomiting or diaphoresis. No rash. No fever. Patient otherwise feels well. Patient has no significant past medical history. COVID testing ordered. Patient is positive for COVID-19. Negative for strep throat. Negative for RSV and influenza. Patient will be discharged home. Patient understands importance of quarantine. Patient understands the importance of supportive care and follow-up. Patient understands signs and symptoms of worsening condition that would indicate the need for return to our ED. Patient patient is ready for discharge. She received a dose of Tylenol for her symptoms. Patient states she feels better. Vital stable. She voices no other complaints or concerns at this time. Portions of this note were created with voice recognition technology. There may be grammatical, spelling, punctuation or sound alike errors Complexity of problems addressed as moderate acute complicated with systemic manifestation of illness Critical care time Complex of data reviewed and analyzed is moderate. Test ordered test reviewed and analyzed. Clinical correlation made between the laboratory finding and bijal ferrell's history and physical examination. Risk of complication or risk morbidity/mortality of patient management is low. Patient discharged home. Supportive care only. Patient educated on self-care and indications for return ED visit. No prescriptions provided. Patient knows the importance of good oral hydration. There stands importance of [id number] analgesics/antipyretics as needed. We will discharge home. Vital stable. Diagnosis COVID-19/viral syndrome. Time spent to discharge patient is approximately 10 minutes. Plan of care established for shared decision making. No social determinants of health present impede follow-up. Portions of this note were created with voice recognition technology. There may be grammatical, spelling, punctuation or sound alike errors 06/30/23 02:22 Counseled pt/family regarding: lab results, diagnosis, need for follow-up - Departure Departure Disposition: Home Clinical Impression: COVID-19, Viral syndrome Condition: Stable Critical Care Time: No Referrals: LIAN REYES [Primary Care Provider] - Follow up/PCP as directed Additional Instructions: Discharge/Care Plan MICHAELARTURSHELBITH was seen on 06/30/23 in the Emergency Room. The patient was counseled regarding Diagnosis,Lab results, Imaging studies, need for follow up and when to return to the Emergency Room. Prescriptions given: Discharge Note I have spoken with the patient and/or caregivers. I have explained the patient's condition, diagnosis and treatment plan based on the information available to me at this time. I have answered the patient's and/or caregiver's questions and addressed any concerns. The patient and/or caregivers have as good understanding of the patient's diagnosis, condition and treatment plan as can be expected at this point. The vital signs have been stable. The patient's condition is stable and appropriate for discharge from the emergency department. The patient will pursue further outpatient evaluation with the primary care physician or other designated or consulting physician as outlined in the discharge instructions. The patient and/or caregivers are agreeable to this plan of care and follow-up instructions have been explained in detail. The patient and/or caregivers have received these instruction. The patient/and or caregivers are aware that any significant change in condition or worsening of symptoms should prompt an immediate return to this or the closest emergency department or call 911.
[2023-06-30 02:01] VITALS: PULSE 92; RESP 18
[2023-06-30 02:06] VITALS: O2SAT 96
== END 2023-06-30 02:01 | disposition home or self-care (01) ==
LOC: ED 00:34
DX: U07.1 COVID-19 (principal); M79.10 Myalgia, unspecified site; J02.9 Acute pharyngitis, unspecified; R51.9 Headache, unspecified; Z28.310 Unvaccinated for COVID-19; Z20.822 Contact with and (suspected) exposure to COVID-19
CPT/HCPCS: 0241U; 87651; 99283; A9270-GY

== ENCOUNTER 2023-10-04 04:05 | Emergency (ER) | payer OTHER ==
[2023-10-04 04:25] VITALS: RESP 16; TEMP 98.1
[2023-10-04] MEDS ORDERED: Hydromorphone 1 mg/ml Injection IV ONE (04:29)
[2023-10-04] MEDS ORDERED: Sodium Chloride 0.9% 1000 ML 1,000 ML IV STA (04:29)
[2023-10-04] MEDS ORDERED: Zofran 4 MG/2 ML VIAL IV ONE (04:29)
[2023-10-04 04:35] LABS: Absolute Neutrophil Ct (ANC) 4.15 x10^3/uL (1.4-6.9); BASOPHIL % 0.5 % (0.0-0.4); Basophil (Absolute #) 0.03 x10^3/uL (0-0.4); Eosinophil % 3.1 % (0.00-5.0); Eosinophil (Absolute #) 0.19 x10^3/uL (0-0.5); Hematocrit 40.3 % (35-47); Hemoglobin 13.6 g/dL (12.0-16.0); IMMATURE GRAN # 0.01 x10^3u/L (0.00-0.03); IMMATURE GRAN % 0.2 % (0.00-0.4); Lymphocyte (Absolute #) 1.26 x10^3/uL (1.0-4.6); Lymphocytes % 20.4 % (24.0-44.0); Mean Cell Volume 86.9 fL (78-100); Mean Corpuscular Hemoglobin 29.3 pg (26-32); Mean Corpuscular Hgb Concent. 33.7 g/dL (32-36); Monocyte (Absolute #) 0.55 x10^3/uL (0.0-1.3); Monocytes % 8.9 % (0.0-12.0); Neutrophil % 66.9 % (36.0-66.0); Platelet Count 263 x10^3/uL (150-450); Red Blood Count 4.64 x10^6/uL (4.1-5.4); Red Cell Distribution Width 12.7 % (11.5-14.0); White Blood Count 6.2 x10^3/uL (4.0-10.5)
[2023-10-04] MEDS ORDERED: Zofran 4 MG/2 ML VIAL ONE (04:38)
[2023-10-04] MEDS ORDERED: Sodium Chloride 0.9% 1000 ML 1,000 ML ONE (04:39)
[2023-10-04] MEDS ORDERED: Hydromorphone 1 mg/ml Injection ONE (04:39)
[2023-10-04 04:40] LABS: HCG SERUM TEST NEGATIVE (NEGATIVE)
[2023-10-04 04:41] LABS: ANION GAP 11.3 MEQ/L (5-15); BILIRUBIN,TOTAL 1.4 mg/dL (0.2-1.3); Calcium 9.7 mg/dL (8.4-10.2); Creatinine 1 0.79 mg/dL (0.52-1.04); EST GLOMERULAR FILTRATION RATE 105.7 ML/MIN; Potassium 4.1 mmol/L (3.5-5.1); Total Protein 8.4 g/dL (6.3-8.2)
--- NOTE | 2023-10-04 05:04 | ERPHSYRPT ---
- History of Present Illness Time Seen by Provider: 10/04/23 04:25 Source: patient, family Exam Limitations: no limitations Patient Subjective Stated Complaint: pt states she has been having lower abd pain since yesterday morning. desccribes as strong cramping pain Triage Nursing Assessment: pt alert and oriented, answers questions approp. pt ambulates into room with steady gait noted. respirations nonlabored. skin warm and dry. abd soft. pt reports tenderness to lower abd with palpation. bowel sounds present x 4 quads. Physician History: This is a 28-year-old white female who presents with by lower quadrant abdominal pain since the morning of 10/03/2023. She describes it as strong cramping pain that causes a tightness and pressure in the bilateral lower quadrants and suprapubic region. Patient has a history of bilateral ovarian cysts. She is also had surgery on both of them in the past. She is currently on her menstrual period. All her organs are in place. Patient took ibuprofen 800 mg at 2 AM prior to arrival. Patient has no known drug allergies and takes no medication chronically. Patient denies any abnormal vaginal discharge. She denies chest pain. She denies shortness of breath. Timing/Duration: yesterday Activites at Onset: none Quality: cramping Onset Location: RLQ, LLQ, suprapubic Severity of Pain-Max: moderate Severity of Pain-Current: moderate Prior abdominal problems: other (Ovarian cysts in the past) Sexual intercourse history: non-contributory Modifying Factors: Improves With: nothing Associated Symptoms: abdominal pain, No fever, No vaginal discharge, No vaginal fluid leakage Allergies/Adverse Reactions: No Known Drug Allergies Allergy (Verified 10/04/23 04:09) Home Medications: No Reportable Medications [No Reported Medications] 06/10/23 [History] Hx Tetanus, Diphtheria Vaccination/Date Given: Yes Hx Influenza Vaccination/Date Given: Yes Hx Pneumococcal Vaccination/Date Given: No Travel Risk - International Travel Have you traveled outside of the country in past 3 weeks: No - Coronavirus Screening Are you exhibiting any of the following symptoms?: No Close contact with a COVID-19 positive Pt in past 14-21 Days: No - Vaccine Status Have you recieved a Covid-19 vaccination: No - Review of Systems Constitutional: No Symptoms Eyes: No Symptoms Ears, Nose, & Throat: No Symptoms Respiratory: No Symptoms Cardiac: No Symptoms Abdominal/Gastrointestinal: Abdominal Pain (Bilateral lower quadrant and suprapubic region) Genitourinary Symptoms: Other Musculoskeletal: No Symptoms Skin: No Symptoms Neurological: No Symptoms Psychological: No Symptoms Endocrine: No Symptoms Hematologic/Lymphatic: No Symptoms Immunological/Allergic: No Symptoms All Other Systems: Reviewed and Negative - Past Medical History Pertinent Past Medical History: No Neurological History: No Pertinent History ENT History: No Pertinent History Cardiac History: Angina Respiratory History: No Pertinent History Endocrine Medical History: No Pertinent History Musculoskeletal History: No Pertinent History GI Medical History: No Pertinent History History: No Pertinent History Psycho-Social History: Anxiety, Depression Female Reproductive Disorders: Other Other Medical History: 2wk hospitalization at age 5 for e-coli. angina, normal ekg. cyst on ovary - Past Surgical History Past Surgical History: Yes Neuro Surgical History: No Pertinent History Cardiac: No Pertinent History Respiratory: No Pertinent History Gastrointestinal: No Pertinent History Genitourinary: No Pertinent History Musculoskeletal: No Pertinent History Female Surgical History: Other Other Surgical History: Cyst removed from left ovary 09/18/19 - Social History Smoking Status: Former smoker How long have you smoked: 10 yrs Exposure to second hand smoke: No Drug Use: marijuana Patient Lives Alone: No Significant Family History: no pertinent family hx - Female History Hx Last Menstrual Period: current Hx Now: No - Nursing Vital Signs Nursing Vital Signs: Initial Vital Signs Temperature 98.1 F 10/04/23 04:09 Pulse Rate 95 H 10/04/23 04:09 Respiratory Rate 16 10/04/23 04:09 Blood Pressure 144/102 10/04/23 04:09 Pain Scale Pain Intensity 10 - Physical Exam General Appearance: mild distress, alert, anxiety Eye Exam: PERRL/EOMI, eyes nml inspection Ears, Nose, Throat Exam: normal ENT inspection, moist mucous membranes Neck Exam: normal inspection, non-tender, supple, full range of motion Respiratory Exam: normal breath sounds, lungs clear, airway intact, No chest tenderness, No respiratory distress Cardiovascular Exam: regular rate/rhythm, normal heart sounds, normal peripheral pulses Gastrointestinal/Abdomen Exam: soft, normal bowel sounds, tenderness (Bilateral lower quadrants and suprapubic region), guarding (Bilateral lower quadrants and suprapubic region), rebound Pelvic Exam: not done Rectal Exam: not done Back Exam: normal inspection, normal range of motion, No CVA tenderness, No vertebral tenderness Extremity Exam: normal inspection, normal range of motion, pelvis stable Neurologic Exam: alert, 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, cooperative, 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 nml as tested, normal mood/affect, nml cerebellar function, nml station & gait, sensation nml Skin Exam: normal color, warm, dry Lymphatic Exam: No adenopathy SpO2 Interpretation: normal O2 Delivery: Room Air - Course Nursing assessment & vital signs reviewed: Yes Ordered Tests: Active Orders 24 hr Category Date Time Status IV Insertion STAT Care 10/04/23 04:29 Active ABDOMEN AND PELVIS W/0 CONTRAS [CT] Stat Exams 10/04/23 04:29 Completed AMYLASE Stat Lab 10/04/23 04:20 Completed CBC W DIFF Stat Lab 10/04/23 04:20 Completed CMP Stat Lab 10/04/23 04:20 Completed HCG QUALITATIVE, SERUM Stat Lab 10/04/23 04:20 Completed LIPASE Stat Lab 10/04/23 04:20 Completed UA W/RFX UR CULTURE Stat Lab 10/04/23 04:46 Completed Medication Summary Discontinued Medications Generic Name Dose Route Start Last Admin Trade Name Freq PRN Reason Stop Dose Admin Hydromorphone HCl 0.5 mg 10/04/23 04:29 10/04/23 04:43 Hydromorphone 1 Mg/1ml Inj IV 10/04/23 04:30 0.5 mg STAT ONE Administration Hydromorphone HCl Confirm 10/04/23 04:39 Hydromorphone 1 Mg/1ml Inj Administered 10/04/23 04:40 Dose 1 mg .ROUTE .STK-MED ONE Sodium Chloride 1,000 mls @ 999 mls/hr 10/04/23 04:29 10/04/23 05:46 Sodium Chloride 0.9% 1000 Ml IV 10/04/23 05:29 Infused .Q1H1M STA Infusion Sodium Chloride Confirm 10/04/23 04:39 Sodium Chloride 0.9% 1000 Ml Administered 10/04/23 04:40 Dose 1,000 mls @ ud .ROUTE .STK-MED ONE Ketorolac Tromethamine 30 mg 10/04/23 05:54 10/04/23 05:58 Ketorolac Tromethamine 30 Mg/Ml Inj IV 10/04/23 05:55 30 mg STAT ONE Administration Ketorolac Tromethamine Confirm 10/04/23 05:57 Ketorolac Tromethamine 30 Mg/Ml Inj Administered 10/04/23 05:58 Dose 30 mg .ROUTE .STK-MED ONE Ondansetron HCl 4 mg 10/04/23 04:29 10/04/23 04:43 Ondansetron Hcl 4 Mg/2 Ml Vial IV 10/04/23 04:30 4 mg STAT ONE Administration Ondansetron HCl Confirm 10/04/23 04:38 Ondansetron Hcl 4 Mg/2 Ml Vial Administered 10/04/23 04:39 Dose 4 mg .ROUTE .[facility] ONE Lab/Rad Data: Laboratory Result Diagrams 10/04/23 04:20 10/04/23 04:20 Laboratory Results 10/04/23 10/04/23 10/04/23 Range/Units 04:46 04:20 04:20 WBC (4.0-10.5) x10^3/uL RBC (4.1-5.4) x10^6/uL Hgb (12.0-16.0) g/dL Hct (35-47) % MCV (78-100) fL MCH (26-32) pg MCHC (32-36) g/dL RDW (11.5-14.0) % Plt Count (150-450) x10^3/uL MPV (7.5-11.0) fL Gran % (36.0-66.0) % Immature Gran % (Auto) (0.00-0.4) % Nucleat RBC Rel Count (0.00-0.1) % Eos # (Auto) (0-0.5) x10^3/uL Immature Gran # (Auto) (0.00-0.03) x10^3u/L Absolute Lymphs (auto) (1.0-4.6) x10^3/uL Absolute Monos (auto) (0.0-1.3) x10^3/uL Absolute Nucleated RBC (0.00-0.01) x10^3u/L Lymphocytes % (24.0-44.0) % Monocytes % (0.0-12.0) % Eosinophils % (0.00-5.0) % Basophils % (0.0-0.4) % Absolute Granulocytes (1.4-6.9) x10^3/uL Basophils # (0-0.4) x10^3/uL Sodium 136 L (137-145) mmol/L Potassium 4.1 (3.5-5.1) mmol/L Chloride 102 (98-107) mmol/L Carbon Dioxide 28 (22-30) mmol/L Anion Gap 11.3 (5-15) MEQ/L BUN 19 H (7-17) mg/dL Creatinine 0.79 (0.52-1.04) mg/dL Estimated GFR 105.7 ML/MIN Glucose 108 H (74-106) mg/dL Calcium 9.7 (8.4-10.2) mg/dL Total Bilirubin 1.40 H (0.2-1.3) mg/dL AST 21 (14-36) U/L ALT 14 (0-35) U/L Alkaline Phosphatase 50 (38-126) U/L Serum Total Protein 8.4 H (6.3-8.2) g/dL Albumin 5.0 (3.5-5.0) g/dL Amylase 84 (30-110) U/L Lipase 89 (23-300) U/L Serum HCG, Qual NEGATIVE (NEGATIVE) Urine Color Yellow (Yellow) Urine Appearance Clear (Clear) Urine pH 5.5 (4.6-8.0) Ur Specific [place] >=1.030 A (1.005-1.030) Urine Protein Trace A (Negative) Urine Glucose (UA) Negative (Negative) mg/dL Urine Ketones Negative (Negative) Urine Blood Large A (Negative) Urine Nitrite Negative (Negative) Urine Bilirubin Negative (Negative) Urine Urobilinogen 1.0 A (0.2) mg/dL Ur Leukocyte Esterase Negative (Negative) U Hyaline Cast (Auto) NONE SEEN (0-2) /LPF Urine Microscopic RBC 0-2 (0-5) /HPF Urine Microscopic WBC 3-5 (0-5) /HPF Ur Epithelial Cells Moderate A (None Seen) /HPF Urine Bacteria Few A (None Seen) /HPF Urine Mucus Moderate A (NEGATIVE) /HPF Urine Culture Reflexed NO (NO) 10/04/23 Range/Units 04:20 WBC 6.2 (4.0-10.5) x10^3/uL RBC 4.64 (4.1-5.4) x10^6/uL Hgb 13.6 (12.0-16.0) g/dL Hct 40.3 (35-47) % MCV 86.9 (78-100) fL MCH 29.3 (26-32) pg MCHC 33.7 (32-36) g/dL RDW 12.7 (11.5-14.0) % Plt Count 263 (150-450) x10^3/uL MPV 10.0 (7.5-11.0) fL Gran % 66.9 H (36.0-66.0) % Immature Gran % (Auto) 0.2 (0.00-0.4) % Nucleat RBC Rel Count 0.0 (0.00-0.1) % Eos # (Auto) 0.19 (0-0.5) x10^3/uL Immature Gran # (Auto) 0.01 (0.00-0.03) x10^3u/L Absolute Lymphs (auto) 1.26 (1.0-4.6) x10^3/uL Absolute Monos (auto) 0.55 (0.0-1.3) x10^3/uL Absolute Nucleated RBC 0.00 (0.00-0.01) x10^3u/L Lymphocytes % 20.4 L (24.0-44.0) % Monocytes % 8.9 (0.0-12.0) % Eosinophils % 3.1 (0.00-5.0) % Basophils % 0.5 (0.0-0.4) % Absolute Granulocytes 4.15 (1.4-6.9) x10^3/uL Basophils # 0.03 (0-0.4) x10^3/uL Sodium (137-145) mmol/L Potassium (3.5-5.1) mmol/L Chloride (98-107) mmol/L Carbon Dioxide (22-30) mmol/L Anion Gap (5-15) MEQ/L BUN (7-17) mg/dL Creatinine (0.52-1.04) mg/dL Estimated GFR ML/MIN Glucose (74-106) mg/dL Calcium (8.4-10.2) mg/dL Total Bilirubin (0.2-1.3) mg/dL AST (14-36) U/L ALT (0-35) U/L Alkaline Phosphatase (38-126) U/L Serum Total Protein (6.3-8.2) g/dL Albumin (3.5-5.0) g/dL Amylase (30-110) U/L Lipase (23-300) U/L Serum HCG, Qual (NEGATIVE) Urine Color (Yellow) Urine Appearance (Clear) Urine pH (4.6-8.0) Ur Specific [place] (1.005-1.030) Urine Protein (Negative) Urine Glucose (UA) (Negative) mg/dL Urine Ketones (Negative) Urine Blood (Negative) Urine Nitrite (Negative) Urine Bilirubin (Negative) Urine Urobilinogen (0.2) mg/dL Ur Leukocyte Esterase (Negative) U Hyaline Cast (Auto) (0-2) /LPF Urine Microscopic RBC (0-5) /HPF Urine Microscopic WBC (0-5) /HPF Ur Epithelial Cells (None Seen) /HPF Urine Bacteria (None Seen) /HPF Urine Mucus (NEGATIVE) /HPF Urine Culture Reflexed (NO) - Progress Progress: improved Air Movement: good Progress Note: 10/04/23 05:05 Patient's medical issue is 1 of moderate complexity. The level of complexity in the workup performed is based on review of the patient's past medical history, review of the patient's medication list, review of the patient's drug allergy list, history present illness and physical findings on examination. Workup includes placement of an intravenous line, infusion of 1 L normal saline solution, infusion of 1 mg intravenous Dilaudid, infusion of 4 mg intravenous Zofran, CBC, CMP, urinalysis, test, amylase, lipase levels and CT scan of the abdomen pelvis without contrast. 10/04/23 05:53 I interpreted the patient's laboratory data results. Patient has a large amount of blood in her urine. However she is currently on her menstrual period there are no other significant, concerning laboratory results in this patient. 10/04/23 06:18 CT scan of the abdomen pelvis was interpreted by the radiologist and I reviewed the impression. There is no evidence of intra-abdominal or intrapelvic adenopathy or fluid collection. The pelvic viscera are grossly unremarkable. Specifically there is no obvious cystic structures in the adnexa bilaterally appendix is not visualized. Blood Culture(s) Obtained: No Antibiotics given: No Counseled pt/family regarding: lab results, diagnosis, rad results Medical Desision Making - Independent Historian Additional History obtained from: Spouse - Diagnostic Testing Diagnostic test were ordered, analyzed, and reviewed by me: Yes Radiological Interpretation: Reviewed by me, Teleradiologist Report - Risk of complications The pt has a mod risk of morbidity or mortality based on: Need for prescription drug management - Departure Departure Disposition: Home Clinical Impression: Abdominal pain, bilateral lower quadrant Condition: Stable Critical Care Time: No Referrals: LIAN REYES [Primary Care Provider] - Follow up/PCP as directed Additional Instructions: Drink plenty of fluids. Use ibuprofen 600 mg orally with food 3 times a day for the next 5 days. Take your other medications as prescribed. Follow-up with tania seals primary care provider today, 10/04/2023, by phone, to make arranges for follow-up appointment and further evaluation management
[2023-10-04 05:34] LABS: Appearance Clear (Clear); Bacteria Few /HPF (None Seen); Bilirubin Negative (Negative); Blood Large (Negative); Glucose, Urine Negative (Negative); Hyaline Casts NONE SEEN /LPF (0-2); Ketones Negative (Negative); Leukocyte Esterase Negative (Negative); Nitrite Negative (Negative); Ph 5.5 (4.6-8.0); Protein,Urine Dip Trace (Negative); Specific Gravity >=1.030 (1.005-1.030)
[2023-10-04 05:35] LABS: ADD URINE CULTURE? NO (NO); Epithelial Cells Moderate /HPF (None Seen); Mucus Moderate /HPF (NEGATIVE); RBC 0-2 /HPF (0-5)
[2023-10-04] MEDS ORDERED: TORAdol 30 mg Injection IV ONE (05:54)
[2023-10-04] MEDS ORDERED: TORAdol 30 mg Injection ONE (05:57)
[2023-10-04 06:10] VITALS: BP 100/59; PULSE 61; O2SAT 98
--- NOTE | 2023-10-04 06:15 | XRAY ---
CLINICAL HISTORY:ABD pain COMPARISON:04/09/2021. TECHNIQUE:Contiguous axial images were obtained from the level of the diaphragm to the pubic symphysis without intravenous or oral contrast. Coronal and sagittal reconstructions were likewise performed and indicated to increase the sensitivity for detecting clinically relevant pathology. CT scan was performed according to ALARA (as low as reasonable achievable). FINDINGS: Subcentimetric calcified nodule noted in medial basal segment of right lower lobe- likely calcified granuloma. Rest of the visualized lung bases are clear. Evaluation of the abdominal and pelvic visceral organs is limited without intravenous contrast. The unenhanced liver, spleen, pancreas, and adrenal glands are grossly unremarkable. The gallbladder is present. The kidneys are normal in size and attenuation without obvious calcification. There is no hydronephrosis or perinephric stranding. The ureters are normal in caliber. No adenopathy or fluid collections are seen. No evidence of focal or diffuse bowel wall thickening or evidence of bowel obstruction is seen. The appendix is not separately seen. The aorta is normal in caliber. The urinary bladder is empty. Pelvic viscera are grossly unremarkable. No aggressive appearing osseous lesions are identified. IMPRESSION: 1.No acute intra abdominal abnormality. As compared to prior CT, there is no obvious cystic structures in the adnexa bilaterally in this non-contrast CT. Electronically Signed by: Dr. Trenton Teran MD. (10/04/2023 06:10:28 EST)
== END 2023-10-04 06:36 | disposition home or self-care (01) ==
LOC: ED 04:05
DX: R10.31 Right lower quadrant pain (principal); R10.32 Left lower quadrant pain; R10.2 Pelvic and perineal pain; Z28.310 Unvaccinated for COVID-19
CPT/HCPCS: 36000; 36415; 74176; 80053; 81001; 82150; 83690; 84703; 85025; 96360; 96374; 96375; 99284; J1170; J1885; J2405

== ENCOUNTER 2024-02-15 09:56 | Emergency (ER) | payer MEDICAID ==
--- NOTE | 2024-02-15 10:11 | ERPHSYRPT ---
- History of Present Illness Time Seen by Provider: 02/15/24 10:11 Source: patient, family Exam Limitations: no limitations Physician History: This is a 28-year-old white female patient of Dr. Davila who presents to the emergency department with painful inspiration as well as right upper quadrant and epigastric abdominal pain which radiates into her back. She had associated vomiting as well. She is in the process of getting her gallbladder evaluated. Patient takes no known drug allergies he takes no medications chronically. Patient woke up with similar symptoms that started yesterday. They were more severe and into her chest on the right side. Patient does have a history of anxiety and depression. Patient has had ovarian cystectomy in the past but no other abdominal surgeries. Timing/Duration: yesterday Activities at Onset: none Severity of Dyspnea-Max: mild Severity of Dyspnea-Current: mild Possible Cause: no prior episodes Modifying Factors: Improves With: deep breath (Painful deep breath. Pain is in the right chest with deep inspiration) Associated Symptoms: constant, No chest pain/discomfort Allergies/Adverse Reactions: No Known Drug Allergies Allergy (Verified 02/15/24 09:57) Hx Tetanus, Diphtheria Vaccination/Date Given: Yes Hx Influenza Vaccination/Date Given: Yes Hx Pneumococcal Vaccination/Date Given: No Travel Risk - International Travel Have you traveled outside of the country in past 3 weeks: No - Emerging Infectious Disease Are you exhibiting symptoms associated with any current EIDs: No - Review of Systems Constitutional: No Symptoms Eyes: No Symptoms Ears, Nose, & Throat: No Symptoms Respiratory: No Symptoms Cardiac: No Symptoms Abdominal/Gastrointestinal: Abdominal Pain, Nausea, Vomiting, Appetite Changes, No Constipation Genitourinary Symptoms: No Symptoms Musculoskeletal: No Symptoms Skin: No Symptoms Neurological: No Symptoms Psychological: No Symptoms Endocrine: No Symptoms Hematologic/Lymphatic: No Symptoms Immunological/Allergic: No Symptoms All Other Systems: Reviewed and Negative - Past Medical History Pertinent Past Medical History: No Neurological History: No Pertinent History ENT History: No Pertinent History Cardiac History: Angina Respiratory History: No Pertinent History Endocrine Medical History: No Pertinent History Musculoskeletal History: No Pertinent History GI Medical History: No Pertinent History History: No Pertinent History Psycho-Social History: Anxiety, Depression Female Reproductive Disorders: Other Other Medical History: 2wk hospitalization at age 5 for e-coli. angina, normal ekg. cyst on ovary - Past Surgical History Past Surgical History: Yes Neuro Surgical History: No Pertinent History Cardiac: No Pertinent History Respiratory: No Pertinent History Gastrointestinal: No Pertinent History Genitourinary: No Pertinent History Musculoskeletal: No Pertinent History Female Surgical History: Other Other Surgical History: Cyst removed from left ovary 09/18/19 Significant Family History: no pertinent family hx - Social History Smoking Status: Former smoker How long have you smoked: 10 yrs Exposure to second hand smoke: No Drug Use: marijuana Patient Lives Alone: No - Nursing Vital Signs Nursing Vital Signs: Initial Vital Signs Temperature 98.8 F 02/15/24 09:57 Pulse Rate 85 02/15/24 09:57 Respiratory Rate 18 02/15/24 09:57 Blood Pressure 137/94 02/15/24 09:57 O2 Sat by Pulse Oximetry 99 02/15/24 09:57 Pain Scale Pain Intensity 4 - Physical Exam General Appearance: mild distress, alert, anxiety Eye Exam: PERRL/EOMI, eyes nml inspection Ears, Nose, Throat Exam: hearing grossly normal, normal ENT inspection, normal pharynx Neck Exam: normal inspection, non-tender, supple, full range of motion Respiratory Exam: normal breath sounds, lungs clear, airway intact, No chest tenderness, No respiratory distress Cardiovascular/Chest Exam: normal heart sounds, regular rate/rhythm Abdominal/Gastrointestinal Exam: soft, normal bowel sounds, tenderness (Epigastric and right upper quadrant to palpation), guarding (Epigastrium and right upper quadrant to palpation) Rectal Exam: not done Extremity Exam: non-tender, normal range of motion, normal inspection, normal capillary refill, no calf tenderness, no pedal edema, pelvis stable, No calf tenderness Neurologic Exam: alert, 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, cooperative, ms sql dba II-XII nml as tested, nml cerebellar function, nml station & gait, sensation nml Skin Exam: normal color, warm, dry Lymphatic Exam: No adenopathy SpO2 Interpretation: normal O2 Delivery: Room Air - Course Nursing assessment & vital signs reviewed: Yes EKG Interpreted by Me: RATE (78), Sinus Rhythm, NORMAL AXIS, NORMAL INTERVALS, NORMAL QRS, NORMAL ST-T, Other (No acute ischemia on today's twelve-lead EKG.) Ordered Tests: Active Orders 24 hr Category Date Time Status EKG-ER Only STAT Care 02/15/24 10:27 Active IV Insertion STAT Care 02/15/24 10:27 Active ABDOMEN AND PELVIS W/0 CONTRAS [CT] Stat Exams 02/15/24 10:28 Completed CHEST 1 VIEW (PORTABLE) Stat Exams 02/15/24 10:29 Completed CHEST WITH CONTRAST [CT] Stat Exams 02/15/24 13:18 Completed AMYLASE Stat Lab 02/15/24 09:55 Completed BLOOD CULTURE Stat Lab 02/15/24 11:07 Received CBC W DIFF Stat Lab 02/15/24 09:55 Completed CMP Stat Lab 02/15/24 09:55 Completed CULTURE,URINE Stat Lab 02/15/24 11:13 Received D-DIMER QUANTITATIVE Stat Lab 02/15/24 09:55 Completed HCG QUALITATIVE, SERUM Stat Lab 02/15/24 11:00 Completed LIPASE Stat Lab 02/15/24 09:55 Completed TROPONIN Q4H Lab 02/15/24 09:55 Completed TROPONIN Q4H Lab 02/15/24 14:30 Ordered TROPONIN Q4H Lab 02/15/24 18:30 Ordered UA W/RFX UR CULTURE Stat Lab 02/15/24 11:13 Completed Medication Summary Discontinued Medications Generic Name Dose Route Start Last Admin Trade Name Freq PRN Reason Stop Dose Admin Hydromorphone HCl 1 mg 02/15/24 10:27 02/15/24 10:41 Hydromorphone 1 Mg/1ml Inj IV 02/15/24 10:28 1 mg STAT ONE Administration Hydromorphone HCl Confirm 02/15/24 10:36 Hydromorphone 1 Mg/1ml Inj Administered 02/15/24 10:37 Dose 1 mg .ROUTE .STK-MED ONE Sodium Chloride 1,000 mls @ 999 mls/hr 02/15/24 10:27 02/15/24 12:11 Sodium Chloride 0.9% 1000 Ml IV 02/15/24 11:27 Infused .Q1H1M STA Infusion Sodium Chloride Confirm 02/15/24 10:37 Sodium Chloride 0.9% 1000 Ml Administered 02/15/24 10:38 Dose 1,000 mls @ ud .ROUTE .STK-MED ONE Ceftriaxone Sodium 1 gm in 100 mls @ 200 mls/hr 02/15/24 12:30 02/15/24 13:44 Rocephin 1 Gm / 100 Ml Nacl IV 02/15/24 12:59 Infused STAT ONE Infusion Ceftriaxone Sodium Confirm 02/15/24 12:41 Rocephin 1 Gm / 100 Ml Nacl Administered 02/15/24 12:42 Dose 1 gm in 100 mls @ ud IV .STK-MED ONE Sodium Chloride 1,000 mls @ 999 mls/hr 02/15/24 12:56 02/15/24 13:03 Sodium Chloride 0.9% 1000 Ml IV 02/15/24 13:56 999 mls/hr .Q1H1M STA Administration Sodium Chloride Confirm 02/15/24 13:00 Sodium Chloride 0.9% 1000 Ml Administered 02/15/24 13:01 Dose 1,000 mls @ ud .ROUTE .STK-MED ONE Ondansetron HCl 4 mg 02/15/24 10:27 02/15/24 10:40 Ondansetron Hcl 4 Mg/2 Ml Vial IV 02/15/24 10:28 4 mg STAT ONE Administration Ondansetron HCl Confirm 02/15/24 10:36 Ondansetron Hcl 4 Mg/2 Ml Vial Administered 02/15/24 10:37 Dose 4 mg .ROUTE .STK-MED ONE Ondansetron HCl 4 mg 02/15/24 12:34 02/15/24 12:44 Ondansetron Hcl 4 Mg/2 Ml Vial IV 02/15/24 12:35 4 mg STAT ONE Administration Ondansetron HCl Confirm 02/15/24 12:40 Ondansetron Hcl 4 Mg/2 Ml Vial Administered 02/15/24 12:41 Dose 4 mg .ROUTE .STK-MED ONE Lab/Rad Data: Laboratory Result Diagrams 02/15/24 09:55 02/15/24 09:55 Laboratory Results 02/15/24 02/15/24 02/15/24 Range/Units 11:13 11:00 09:55 WBC (4.0-10.5) x10^3/uL RBC (4.1-5.4) x10^6/uL Hgb (12.0-16.0) g/dL Hct (35-47) % MCV (78-100) fL MCH (26-32) pg MCHC (32-36) g/dL RDW (11.5-14.0) % Plt Count (150-450) x10^3/uL MPV (7.5-11.0) fL Gran % (36.0-66.0) % Immature Gran % (Auto) (0.00-0.4) % Nucleat RBC Rel Count (0.00-0.1) % Eos # (Auto) (0-0.5) x10^3/uL Immature Gran # (Auto) (0.00-0.03) x10^3u/L Absolute Lymphs (auto) (1.0-4.6) x10^3/uL Absolute Monos (auto) (0.0-1.3) x10^3/uL Absolute Nucleated RBC (0.00-0.01) x10^3u/L Lymphocytes % (24.0-44.0) % Monocytes % (0.0-12.0) % Eosinophils % (0.00-5.0) % Basophils % (0.0-0.4) % Absolute Granulocytes (1.4-6.9) x10^3/uL Basophils # (0-0.4) x10^3/uL D-Dimer (0.0-0.50) mg/L Sodium (135-145) mmol/L Potassium (3.5-5.1) mmol/L Chloride (98-107) mmol/L Carbon Dioxide (22-30) mmol/L Anion Gap (5-15) MEQ/L BUN (7-17) mg/dL Creatinine (0.52-1.04) mg/dL Estimated GFR ML/MIN Glucose (74-106) mg/dL Calcium (8.4-10.2) mg/dL Total Bilirubin (0.2-1.3) mg/dL AST (14-36) U/L ALT (0-35) U/L Alkaline Phosphatase (38-126) U/L Troponin I < 0.012 (0.000-0.033) ng/mL Serum Total Protein (6.3-8.2) g/dL Albumin (3.5-5.0) g/dL Amylase (30-110) U/L Lipase (23-300) U/L Serum HCG, Qual NEGATIVE (NEGATIVE) Urine Color Yellow (Yellow) Urine Appearance Clear (Clear) Urine pH 8.5 A (4.6-8.0) Ur Specific [place] 1.025 (1.005-1.030) Urine Protein Trace A (Negative) Urine Glucose (UA) Negative (Negative) mg/dL Urine Ketones >=160 A (Negative) Urine Blood Small A (Negative) Urine Nitrite Negative (Negative) Urine Bilirubin Negative (Negative) Urine Urobilinogen 1.0 A (0.2) mg/dL Ur Leukocyte Esterase Small A (Negative) U Hyaline Cast (Auto) NONE SEEN (0-2) /LPF Urine Microscopic RBC 0-2 (0-5) /HPF Urine Microscopic WBC 6-10 A (0-5) /HPF Ur Epithelial Cells Rare (None Seen) /HPF Urine Bacteria Few A (None Seen) /HPF Urine Culture Reflexed YES (NO) Slides for Path Review 02/15/24 02/15/24 02/15/24 Range/Units 09:55 09:55 09:55 WBC 3.9 L (4.0-10.5) x10^3/uL RBC 3.80 L (4.1-5.4) x10^6/uL Hgb 11.4 L (12.0-16.0) g/dL Hct 32.1 L (35-47) % MCV 84.5 (78-100) fL MCH 30.0 (26-32) pg MCHC 35.5 (32-36) g/dL RDW 12.8 (11.5-14.0) % Plt Count 194 (150-450) x10^3/uL MPV 10.2 (7.5-11.0) fL Gran % 92.6 H (36.0-66.0) % Immature Gran % (Auto) 0.3 (0.00-0.4) % Nucleat RBC Rel Count 0.0 (0.00-0.1) % Eos # (Auto) 0 (0-0.5) x10^3/uL Immature Gran # (Auto) 0.01 (0.00-0.03) x10^3u/L Absolute Lymphs (auto) 0.15 L (1.0-4.6) x10^3/uL Absolute Monos (auto) 0.12 (0.0-1.3) x10^3/uL Absolute Nucleated RBC 0.00 (0.00-0.01) x10^3u/L Lymphocytes % 3.8 L (24.0-44.0) % Monocytes % 3.0 (0.0-12.0) % Eosinophils % 0.0 (0.00-5.0) % Basophils % 0.3 (0.0-0.4) % Absolute Granulocytes 3.65 (1.4-6.9) x10^3/uL Basophils # 0.01 (0-0.4) x10^3/uL D-Dimer 0.51 H (0.0-0.50) mg/L Sodium 137 (135-145) mmol/L Potassium 3.7 (3.5-5.1) mmol/L Chloride 104 (98-107) mmol/L Carbon Dioxide 26 (22-30) mmol/L Anion Gap 10.3 (5-15) MEQ/L BUN 15 (7-17) mg/dL Creatinine 0.68 (0.52-1.04) mg/dL Estimated GFR 123.1 ML/MIN Glucose 109 H (74-106) mg/dL Calcium 9.7 (8.4-10.2) mg/dL Total Bilirubin 1.10 (0.2-1.3) mg/dL AST 28 (14-36) U/L ALT 27 (0-35) U/L Alkaline Phosphatase 46 (38-126) U/L Troponin I (0.000-0.033) ng/mL Serum Total Protein 8.0 (6.3-8.2) g/dL Albumin 4.8 (3.5-5.0) g/dL Amylase 68 (30-110) U/L Lipase 40 (23-300) U/L Serum HCG, Qual (NEGATIVE) Urine Color (Yellow) Urine Appearance (Clear) Urine pH (4.6-8.0) Ur Specific [place] (1.005-1.030) Urine Protein (Negative) Urine Glucose (UA) (Negative) mg/dL Urine Ketones (Negative) Urine Blood (Negative) Urine Nitrite (Negative) Urine Bilirubin (Negative) Urine Urobilinogen (0.2) mg/dL Ur Leukocyte Esterase (Negative) U Hyaline Cast (Auto) (0-2) /LPF Urine Microscopic RBC (0-5) /HPF Urine Microscopic WBC (0-5) /HPF Ur Epithelial Cells (None Seen) /HPF Urine Bacteria (None Seen) /HPF Urine Culture Reflexed (NO) Slides for Path Review YES - Progress Progress: improved, re-examined Air Movement: good Progress Note: 02/15/24 10:37 My medical decision making and the assignment of moderate complexity to the patient's medical issue today is based on review of the patient's past medical history, review of the patient's medication list, review the patient drug allergy list, history present illness and physical findings on examination. The workup in this patient includes placement of intravenous line, chest x-ray, CT scan of the abdomen pelvis without contrast, urinalysis, BNP, troponin level, D- dimer level, twelve-lead EKG, CBC, CMP. Differential diagnosis includes myocardial infarction, pulmonary embolus, pneumonia, acute cholecystitis, arrhythmia, electrolyte abnormalities. 02/15/24 13:00 I interpreted the patient's laboratory data results. The patient has a borderline D-dimer value at 0.51. I have low suspicion that this patient has a pulmonary embolus. She has no history of clotting disorder. I will discuss with her her options and together will decide on how to proceed. The chest x-ray was interpreted by the radiologist and I reviewed the impression. Impression states no new or acute findings. The CT scan of the abdomen pelvis without contrast was interpreted by the radiologist. I reviewed the impression. Impression states appendix not visualized. No free air or free fluid. The CT scan of the abdomen pelvis without contrast is negative for any acute process. 02/15/24 13:15 I had a long discussion with this patient regarding the results of her workup as well as the borderline D-dimer test. Patient states that she still has significant discomfort in right chest with deep inspiration. She prefers to proceed with a CT scan of the chest with contrast. 02/15/24 14:04 CT of the chest with contrast was interpreted by the radiologist and I reviewed the impression. The impression states no pulmonary embolism. There is pectus excavatum present. Blood Culture(s) Obtained: No Antibiotics given: Yes Counseled pt/family regarding: lab results, diagnosis, need for follow-up, rad results Medical Desision Making - Independent Historian Additional History obtained from: Family - Diagnostic Testing Diagnostic test were ordered, analyzed, and reviewed by me: Yes Radiological Interpretation: Reviewed by me, Teleradiologist Report - Risk of complications The pt has a mod risk of morbidity or mortality based on: Need for prescription drug management - Departure Departure Disposition: Home Clinical Impression: Dehydration, UTI (urinary tract infection), Vomiting Condition: Stable Critical Care Time: No Referrals: LIAN DAVILA [Primary Care Provider] - Follow up/PCP as directed Additional Instructions: Start your diet with clear liquids and slowly advance your diet over 24 hours. Avoid fatty greasy spicy foods. Take your medications as prescribed. Prescriptions: Ondansetron ODT 4 MG [Zofran Odt 4 mg] 4 mg PO Q6H PRN PRN #10 tablet PRN Reason: Vomiting Ciprofloxacin [Cipro 500 MG] 500 mg PO BID #14 tablet
[2024-02-15] MEDS ORDERED: Hydromorphone 1 mg/ml Injection ONE (10:36)
[2024-02-15] MEDS ORDERED: Zofran 4 MG/2 ML VIAL ONE ×2 (10:36→12:40)
[2024-02-15] MEDS ORDERED: Sodium Chloride 0.9% 1000 ML 1,000 ML ONE ×2 (10:37→13:00)
[2024-02-15] MEDS: Zofran 4 MG/2 ML VIAL IV ONE ×2 (10:40→12:44)
[2024-02-15] MEDS: Sodium Chloride 0.9% 1000 ML 1,000 ML IV STA ×2 (10:40→13:03)
[2024-02-15] MEDS: Hydromorphone 1 mg/ml Injection IV ONE (10:41)
[2024-02-15 11:18] LABS: Absolute Neutrophil Ct (ANC) 3.65 x10^3/uL (1.4-6.9); BASOPHIL % 0.3 % (0.0-0.4); Basophil (Absolute #) 0.01 x10^3/uL (0-0.4); Eosinophil (Absolute #) 0 x10^3/uL (0-0.5); Hematocrit 32.1 % (35-47); Hemoglobin 11.4 g/dL (12.0-16.0); IMMATURE GRAN # 0.01 x10^3u/L (0.00-0.03); IMMATURE GRAN % 0.3 % (0.00-0.4); Lymphocyte (Absolute #) 0.15 x10^3/uL (1.0-4.6); Lymphocytes % 3.8 % (24.0-44.0); Mean Cell Volume 84.5 fL (78-100); Mean Corpuscular Hgb Concent. 35.5 g/dL (32-36); Mean Platelet Volume 10.2 fL (7.5-11.0); Monocyte (Absolute #) 0.12 x10^3/uL (0.0-1.3); Neutrophil % 92.6 % (36.0-66.0); Platelet Count 194 x10^3/uL (150-450); Red Cell Distribution Width 12.8 % (11.5-14.0); White Blood Count 3.9 x10^3/uL (4.0-10.5)
[2024-02-15 11:37] LABS: ALBUMIN 4.8 g/dL (3.5-5.0); ANION GAP 10.3 MEQ/L (5-15); BILIRUBIN,TOTAL 1.1 mg/dL (0.2-1.3); Calcium 9.7 mg/dL (8.4-10.2); Creatinine 1 0.68 mg/dL (0.52-1.04); EST GLOMERULAR FILTRATION RATE 123.1 ML/MIN; Potassium 3.7 mmol/L (3.5-5.1)
[2024-02-15 11:47] LABS: HCG SERUM TEST NEGATIVE (NEGATIVE)
[2024-02-15 11:53] LABS: Appearance Clear (Clear); Bacteria Few /HPF (None Seen); Bilirubin Negative (Negative); Blood Small (Negative); Epithelial Cells Rare /HPF (None Seen); Glucose, Urine Negative (Negative); Hyaline Casts NONE SEEN /LPF (0-2); Ketones >=160 (Negative); Leukocyte Esterase Small (Negative); Nitrite Negative (Negative); Ph 8.5 (4.6-8.0); Protein,Urine Dip Trace (Negative); RBC 0-2 /HPF (0-5); Specific Gravity 1.025 (1.005-1.030)
[2024-02-15 11:54] LABS: ADD URINE CULTURE? YES (NO)
[2024-02-15] MEDS ORDERED: ROCEPHIN 1 GM / 100 ML NaCl 1 GM/100 ML IVPB IV ONE (12:41)
--- NOTE | 2024-02-15 12:46 | XRAY ---
Indication: Painful inspiration. Comparison: June 10, 2023 Portable chest again demonstrates normal heart and lungs. Bony thorax intact with minimal dextroscoliosis. No new/acute findings.
--- NOTE | 2024-02-15 12:46 | XRAY ---
Indication: Right upper quadrant abdominal pain. Multiple contiguous axial images obtained through the abdomen and pelvis without contrast. Comparison: October 04, 2023 Lung bases clear. Heart not enlarged. Noncontrasted stomach and bowel loops appear nonobstructed. Appendix not visualized. No free fluid/air. Remaining liver, gallbladder, pancreas, spleen, adrenal glands, kidneys, ureters, bladder, uterus, and aorta are unremarkable for noncontrast exam. Osseous structures intact. Again incompletely visualized pectus excavatum deformity. Impression: Continued negative CT abdomen/pelvis without contrast exam.
[2024-02-15] MEDS: ROCEPHIN 1 GM / 100 ML NaCl 1 GM/100 ML IVPB IV ONE (12:55)
[2024-02-15 12:59] LABS: Slide Review 1 YES
--- NOTE | 2024-02-15 14:01 | XRAY ---
Indication: Chest pain. Elevated d-dimer. Normal same day CXR. Multiple contiguous axial images obtained through the chest using 80 cc Isovue 370 contrast and PE protocol. Comparison: None Good opacification of the pulmonary arteries to include the lobar and segmental branches. No pulmonary embolus. Heart is not enlarged. Aorta is normal in course and caliber. [place] left hilar calcified node. No pathologic mediastinal/hilar lymphadenopathy. Lungs demonstrate small medial left lower lobe calcified granuloma and minimal bilateral dependent atelectasis. No suspicious pulmonary mass/nodule, infiltrate, or effusion. Bony thorax intact with incidental pectus excavatum deformity. CT abdomen/pelvis reported separately. Impression: Normal CT chest pulmonary embolus exam. Incidental pectus excavatum deformity and old granulomatous disease.
[2024-02-15 14:28] VITALS: BP 133/90; PULSE 79; RESP 18; TEMP 97.8; O2SAT 98
== END 2024-02-15 14:38 | disposition home or self-care (01) ==
LOC: ED 09:56
DX: N39.0 Urinary tract infection, site not specified (principal); E86.0 Dehydration; R11.2 Nausea with vomiting, unspecified; R10.11 Right upper quadrant pain; R10.13 Epigastric pain
CPT/HCPCS: 36000; 36415; 71045; 71260; 74176; 80053; 81001; 82150; 83690; 84484; 84703; 85025; 85379; 87040; 87086; 93005; 96360; 96365; 96374; 96375; 96376; 99285; J0696; J1170; J2405

== ENCOUNTER 2024-06-28 18:15 | Emergency (ER) | payer BC ==
[2024-06-28 18:44] VITALS: RESP 18; TEMP 98; O2SAT 99
[2024-06-28] MEDS ORDERED: BENADRYL 50 MG/ML ONE (19:44)
[2024-06-28] MEDS ORDERED: TORAdol 30 mg Injection ONE (19:44)
[2024-06-28] MEDS ORDERED: Sodium Chloride 0.9% 1000 ML 1,000 ML ONE (19:45)
[2024-06-28] MEDS ORDERED: Reglan 10 MG/2 ML ONE (19:45)
[2024-06-28] MEDS: Sodium Chloride 0.9% 1000 ML 1,000 ML IV STA (19:46)
[2024-06-28] MEDS: TORAdol 30 mg Injection IV ONE (19:48)
[2024-06-28] MEDS: BENADRYL 50 MG/ML IV ONE (19:50)
[2024-06-28] MEDS: Reglan 10 MG/2 ML IV ONE (19:52)
--- NOTE | 2024-06-28 20:12 | ERPHSYRPT ---
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 Triage Nursing Assessment: Patient is alert and oriented. No SOB. Patient noted to have a moist, non-productive cough during assessment; reports started a day or 2 ago. Skin tone normal. Denies changes in vision. Physician History: 48 years old female with history of migraines presented to the ER with complaint of headache for the last 3 days. Patient reports she bent over and stood up and accidentally hit it against the conveyor belt 3 days ago/Tuesday at work. Patient reports constant headache since then moderate intensity sharp nature with no scalp swelling/hematoma. Denies any neck pain. Does report associated nausea and 3-4 episodes of nonprojectile, nonbilious vomiting. Does have history of migraine which usually goes away with pain medication like Tyl enol/Excedrin but it was not relieving her symptoms. Does not think this is the worst headache of her life. Her migraines are usually poor control. No visual disturbance difficulty speech or focal numbness tingling or weakness. Allergies/Adverse Reactions: No Known Drug Allergies Allergy (Verified 06/28/24 18:34) Home Medications: No Reportable Medications [No Reported Medications] 06/28/24 [History] Hx Tetanus, Diphtheria Vaccination/Date Given: Yes Hx Influenza Vaccination/Date Given: Yes Hx Pneumococcal Vaccination/Date Given: No Immunizations Up to Date: Yes Travel Risk - International Travel Have you traveled outside of the country in past 3 weeks: No - Emerging Infectious Disease Are you exhibiting symptoms associated with any current EIDs: Yes Symptoms: Cough: New Onset, Headaches/Body Aches/, Vomitting - Review of Systems Constitutional: No Symptoms Eyes: No Symptoms Ears, Nose, & Throat: No Symptoms Respiratory: No Symptoms Cardiac: No Symptoms Musculoskeletal: No Symptoms Skin: No Symptoms Neurological: Headache Endocrine: No Symptoms Hematologic/Lymphatic: No Symptoms Immunological/Allergic: No Symptoms - Past Medical History Pertinent Past Medical History: Yes Neurological History: Migraines ENT History: No Pertinent History Cardiac History: Angina Respiratory History: No Pertinent History Endocrine Medical History: No Pertinent History Musculoskeletal History: No Pertinent History GI Medical History: No Pertinent History History: No Pertinent History Psycho-Social History: Anxiety, Depression Female Reproductive Disorders: Other Other Medical History: 2wk hospitalization at age 5 for e-coli. cyst on ovary - Past Surgical History Past Surgical History: Yes Neuro Surgical History: No Pertinent History Cardiac: No Pertinent History Respiratory: No Pertinent History Gastrointestinal: No Pertinent History Genitourinary: No Pertinent History Musculoskeletal: No Pertinent History Female Surgical History: Other Other Surgical History: Cyst removed from left ovary 09/18/19 Significant Family History: no pertinent family hx - Female History Hx Last Menstrual Period: Last month Hx Now: No - Social History Smoking Status: Former smoker How long have you smoked: 10 yrs Exposure to second hand smoke: No Drug Use: marijuana Patient Lives Alone: No - Social Determinants of Health Will the patient participate in the screening: Declined to provide - Nursing Vital Signs Nursing Vital Signs: Initial Vital Signs Pulse Rate 81 06/28/24 18:30 Blood Pressure 123/75 06/28/24 18:30 O2 Sat by Pulse Oximetry 95 06/28/24 18:30 Pain Scale Pain Intensity 8 - Physical Exam General Appearance: no apparent distress Eye Exam: PERRL/EOMI Ears, Nose, Throat Exam: normal ENT inspection Neck Exam: normal inspection, non-tender, supple, full range of motion Respiratory Exam: normal breath sounds, lungs clear Cardiovascular Exam: regular rate/rhythm, normal heart sounds Gastrointestinal/Abdominal Exam: soft, normal bowel sounds, No tenderness Extremity Exam: normal inspection, normal range of motion Mental Status Exam: alert, 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, 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 Exam: normal hearing, normal speech, PERRL Coordination/Gait Exam: normal finger to nose, normal gait, normal cerebellar function, negative Romberg's sign Motor/Sensory Exam: no motor deficit, no sensory deficit, no pronator drift DTR Exam: bicep (R): 2+, bicep (L): 2+, knee (R): 2+, knee (L): 2+ Skin Exam: normal color SpO2 Interpretation: normal SpO2: 99 O2 Delivery: Room Air Ordered Tests: Active Orders 24 hr Category Date Time Status IV Insertion STAT Care 06/28/24 19:03 Active Medication Summary Discontinued Medications Generic Name Dose Route Start Last Admin Trade Name Freq PRN Reason Stop Dose Admin Diphenhydramine HCl 25 mg 06/28/24 19:03 06/28/24 19:50 Diphenhydramine Hcl 50 Mg/Ml Vial IV 06/28/24 19:04 25 mg STAT ONE Administration Diphenhydramine HCl Confirm 06/28/24 19:44 Diphenhydramine Hcl 50 Mg/Ml Vial Administered 06/28/24 19:45 Dose 50 mg .ROUTE .STK-MED ONE Sodium Chloride 1,000 mls @ 999 mls/hr 06/28/24 19:03 06/28/24 19:46 Sodium Chloride 0.9% 1000 Ml IV 06/28/24 20:03 999 mls/hr .Q1H1M STA Administration Sodium Chloride Confirm 06/28/24 19:45 Sodium Chloride 0.9% 1000 Ml Administered 06/28/24 19:46 Dose 1,000 mls @ ud .ROUTE .STK-MED ONE Ketorolac Tromethamine 30 mg 06/28/24 19:03 06/28/24 19:48 Ketorolac Tromethamine 30 Mg/Ml Inj IV 06/28/24 19:04 30 mg STAT ONE Administration Ketorolac Tromethamine Confirm 06/28/24 19:44 Ketorolac Tromethamine 30 Mg/Ml Inj Administered 06/28/24 19:45 Dose 30 mg .ROUTE .STK-MED ONE Metoclopramide HCl 10 mg 06/28/24 19:03 06/28/24 19:52 Metoclopramide Hcl 10 Mg/2 Ml Vial IV 06/28/24 19:04 10 mg STAT ONE Administration Metoclopramide HCl Confirm 06/28/24 19:45 Metoclopramide Hcl 10 Mg/2 Ml Vial Administered 06/28/24 19:46 Dose 10 mg .ROUTE .STK-MED ONE Lab/Rad Data: Laboratory Results 06/28/24 Range/Units 19:15 Influenza Type A Ag NEGATIVE (NEGATIVE) Influenza Type B Ag NEGATIVE (NEGATIVE) RSV (PCR) NEGATIVE (NEGATIVE) SARS-CoV-2 (PCR) NEGATIVE (NEGATIVE) - Progress Progress: improved Air Movement: good Progress Note: 28 years old is evaluated in the ER for headache after she had her left occipital area against the conveyor belt. It was not significant trauma. No swelling. No tenderness. Nonfocal neuroexam. Less likely patient has internal injury and has more of a worsening migraine. She is given fluids and Toradol/Benadryl/Reglan, reevaluation her migraine is improved. Do not think she needs imaging or any other workup. Recommended outpatient follow-up with primary care and neurology for reevaluation and possibly prophylactic medications for migraine. Discussed signs symptoms of worsening needing return to ER which she seems understanding. Stable for discharge. 06/28/24 20:56 Blood Culture(s) Obtained: No Antibiotics given: No Counseled pt/family regarding: diagnosis, need for follow-up Medical Desision Making - Diagnostic Testing Diagnostic test were ordered, analyzed, and reviewed by me: No - Risk of complications The pt has a mod risk of morbidity or mortality based on: Need for prescription drug management - Departure Departure Disposition: Home Clinical Impression: Migraine Condition: Stable Critical Care Time: No Referrals: LIAN REYES [Primary Care Provider] - Follow up with PCP 1 day Instructions: Headache, Adult ED Additional Instructions: Take Tylenol/ibuprofen as needed. Follow-up with primary care for reevaluation and may need referral for neurology for further evaluation. Return to ER for intractable headache, numbness tingling focal weakness etc.
[2024-06-28 20:19] LABS: INFLUENZA A NEGATIVE (NEGATIVE); INFLUENZA B NEGATIVE (NEGATIVE); RESPIRATORY SYNCTIAL VIRUS NEGATIVE (NEGATIVE); SARS-CoV-2 Xpert Express NEGATIVE (NEGATIVE)
[2024-06-28 20:55] VITALS: BP 100/65; PULSE 69
== END 2024-06-28 21:01 | disposition home or self-care (01) ==
LOC: ED 18:15
DX: G43.909 Migraine, unspecified, not intractable, without status migrainosus (principal); R11.2 Nausea with vomiting, unspecified
CPT/HCPCS: 0241U; 36000; 96360; 96374; 96375; 99284; J1200; J1885

== ENCOUNTER 2024-09-19 22:10 | Emergency (ER) | payer BC ==
[2024-09-19 22:25] VITALS: RESP 18; TEMP 97.6
--- NOTE | 2024-09-19 22:35 | ERPHSYRPT ---
- History of Present Illness Time Seen by Provider: 09/19/24 22:12 Source: patient, family Exam Limitations: no limitations Patient Subjective Stated Complaint: pt states that she began her period today. pt states she has severe abd pain Triage Nursing Assessment: pt ambulated into the er; pt is axo x4; c/o abd pain; pt states 10/10 to abd; pt denies N/V/D; abd flat, soft, tender; active bowel sounds in all quads; skin PDW; no respiratory distress present; hypertensive Physician History: Patient is here with lower abdominal pain. States that it is 10 out of 10, started earlier today around 6 PM. Patient also stated that she started her period today. Patient states that she does have a history of ovarian cysts. She has no falls or other trauma. She does not believe that she is . States that she has not had sex in several weeks. However she has not taking any contraception, they are actively not trying to be . Patient has otherwise been in her normal state of health. Patient is taking PO well. Same number of urinations and defecations. The patient has no signs of altered mental status, nuchal rigidity, signs of meningitis. The patient is up-to-date on all vaccinations. She has not tried any thing to make it better or worse. Allergies/Adverse Reactions: No Known Drug Allergies Allergy (Verified 09/19/24 22:15) Home Medications: No Reportable Medications [No Reported Medications] 06/28/24 [History] Hx Tetanus, Diphtheria Vaccination/Date Given: Yes Hx Influenza Vaccination/Date Given: No Hx Pneumococcal Vaccination/Date Given: No Travel Risk - International Travel Have you traveled outside of the country in past 3 weeks: No - Emerging Infectious Disease Are you exhibiting symptoms associated with any current EIDs: Yes Symptoms: Abdominal Pain - Past Medical History Pertinent Past Medical History: Yes Neurological History: Migraines ENT History: No Pertinent History Cardiac History: Angina Respiratory History: No Pertinent History Endocrine Medical History: No Pertinent History Musculoskeletal History: No Pertinent History GI Medical History: No Pertinent History History: No Pertinent History Psycho-Social History: Anxiety, Depression Female Reproductive Disorders: Other Other Medical History: 2wk hospitalization at age 5 for e-coli. cyst on ovary - Past Surgical History Past Surgical History: Yes Neuro Surgical History: No Pertinent History Cardiac: No Pertinent History Respiratory: No Pertinent History Gastrointestinal: No Pertinent History Genitourinary: No Pertinent History Musculoskeletal: No Pertinent History Female Surgical History: Other Other Surgical History: Cyst removed from left ovary 09/18/19 Significant Family History: no pertinent family hx - Female History Hx Last Menstrual Period: 09/19/24 Hx Now: No - Social History Smoking Status: Former smoker How long have you smoked: 10 yrs Exposure to second hand smoke: No Drug Use: marijuana Patient Lives Alone: No - Social Determinants of Health Will the patient participate in the screening: Declined to provide - Nursing Vital Signs Nursing Vital Signs: Initial Vital Signs Temperature 97.6 F 09/19/24 22:17 Pulse Rate 72 09/19/24 22:17 Respiratory Rate 18 09/19/24 22:17 Blood Pressure 150/99 09/19/24 22:17 O2 Sat by Pulse Oximetry 100 09/19/24 22:17 Pain Scale Pain Intensity 0 - Physical Exam SpO2: 100 Comments: 09/19/24 22:34 Review of Systems Constitutional: Negative for fever. HENT: Negative for congestion. Respiratory: Negative for shortness of breath. Cardiovascular: Negative for chest pain. Gastrointestinal: Negative for abdominal pain. Genitourinary: Negative for dysuria. Musculoskeletal: Negative for back pain. Skin: Negative for rash. Neurological: Negative for headaches. Psychiatric/Behavioral: Negative for behavioral problems. All other systems reviewed and are negative. Physical Exam Vitals signs and nursing note reviewed. Constitutional: Appearance: Patient is well-developed. HENT: Head: Normocephalic and atraumatic. Eyes: Conjunctiva/sclera: Conjunctivae normal. Neck: Musculoskeletal: Normal range of motion. Trachea: No tracheal deviation. Cardiovascular: Rate and Rhythm: Normal rate. Heart sounds normal. Pulmonary: Effort: Pulmonary effort is normal. No respiratory distress. Abdominal: Palpations: Abdomen is soft. Lower abdominal tenderness without rebound or guarding Musculoskeletal: General: No deformity. Skin: General: Skin is warm and dry. Neurological/ Psychiatric: Mental Status: Mental status, behavior, interaction with environment is appropriate for patient's age and condition - Course Nursing assessment & vital signs reviewed: Yes Ordered Tests: Active Orders 24 hr Category Date Time Status IV Insertion STAT Care 09/19/24 22:30 Completed ABDOMEN AND PELVIS W CONTRAST [CT] Stat Exams 09/19/24 23:04 Completed CBC W DIFF Stat Lab 09/19/24 22:30 Completed CMP Stat Lab 09/19/24 22:43 Completed HCG QUALITATIVE, SERUM Stat Lab 09/19/24 22:43 Completed LIPASE Stat Lab 09/19/24 22:43 Completed UA W/RFX UR CULTURE Stat Lab 09/19/24 22:48 Completed Medication Summary Discontinued Medications Generic Name Dose Route Start Last Admin Trade Name Freq PRN Reason Stop Dose Admin Hydromorphone HCl 1 mg 09/19/24 22:30 09/19/24 22:38 Hydromorphone 1 Mg/1ml Inj IV 09/19/24 22:31 1 mg STAT ONE Administration Hydromorphone HCl Confirm 09/19/24 22:37 Hydromorphone 1 Mg/1ml Inj Administered 09/19/24 22:38 Dose 1 mg .ROUTE .STK-MED ONE Sodium Chloride 1,000 mls @ 999 mls/hr 09/19/24 22:30 09/19/24 23:50 Sodium Chloride 0.9% 1000 Ml IV 09/19/24 23:30 Infused .Q1H1M STA Infusion Sodium Chloride Confirm 09/19/24 22:37 Sodium Chloride 0.9% 1000 Ml Administered 09/19/24 22:38 Dose 1,000 mls @ ud .ROUTE .STK-MED ONE Ondansetron HCl 4 mg 09/19/24 22:30 09/19/24 22:38 Ondansetron Hcl 4 Mg/2 Ml Vial IV 09/19/24 22:31 4 mg STAT ONE Administration Ondansetron HCl Confirm 09/19/24 22:37 Ondansetron Hcl 4 Mg/2 Ml Vial Administered 09/19/24 22:38 Dose 4 mg .ROUTE .STK-MED ONE Lab/Rad Data: Laboratory Result Diagrams 09/19/24 22:30 09/19/24 22:43 Laboratory Results 09/19/24 09/19/24 09/19/24 Range/Units 22:48 22:43 22:43 WBC (3.98-10.04) x10^3/uL RBC (3.93-5.22) x10^6/uL Hgb (11.2-15.7) g/dL Hct (34.1-44.9) % MCV (79.4-94.8) fL MCH (25.6-32.2) pg MCHC (32.2-35.5) g/dL RDW (11.7-14.4) % Plt Count (182-369) x10^3/uL MPV (9.4-12.3) fL Gran % (34.0-71.1) % Immature Gran % (Auto) (0.001-0.429) % Nucleat RBC Rel Count (0.00-0.2) % Eos # (Auto) (0.04-0.36) x10^3/uL Immature Gran # (Auto) (0.001-0.031) x10^3u/L Absolute Lymphs (auto) (1.18-3.74) x10^3/uL Absolute Monos (auto) (0.24-0.86) x10^3/uL Absolute Nucleated RBC (0.00-0.012) x10^3u/L Lymphocytes % (19.3-51.7) % Monocytes % (4.7-12.5) % Eosinophils % (0.7-5.8) % Basophils % (0.1-1.2) % Absolute Granulocytes (1.56-6.13) x10^3/uL Basophils # (0.01-0.08) x10^3/uL Sodium 139 (135-145) mmol/L Potassium 3.6 (3.5-5.1) mmol/L Chloride 107 (98-107) mmol/L Carbon Dioxide 26 (22-30) mmol/L Anion Gap 10.2 (5-15) MEQ/L BUN 19 H (7-17) mg/dL Creatinine 0.89 (0.52-1.04) mg/dL Estimated GFR 91.1 ML/MIN Glucose 98 (74-106) mg/dL Calcium 9.1 (8.4-10.2) mg/dL Total Bilirubin 0.60 (0.2-1.3) mg/dL AST 24 (14-36) U/L ALT 14 (0-35) U/L Alkaline Phosphatase 35 L (38-126) U/L Serum Total Protein 7.1 (6.3-8.2) g/dL Albumin 4.5 (3.5-5.0) g/dL Lipase 75 (23-300) U/L Serum HCG, Qual NEGATIVE (NEGATIVE) Urine Color Yellow (Yellow) Urine Appearance Clear (Clear) Urine pH 5.5 (4.6-8.0) Ur Specific [place] <=1.005 (1.005-1.030) Urine Protein Negative (Negative) Urine Glucose (UA) Negative (Negative) mg/dL Urine Ketones Negative (Negative) Urine Blood Large A (Negative) Urine Nitrite Negative (Negative) Urine Bilirubin Negative (Negative) Urine Urobilinogen 0.2 (0.2) mg/dL Ur Leukocyte Esterase Negative (Negative) U Hyaline Cast (Auto) NONE SEEN (0-2) /LPF Urine Microscopic RBC 11-20 A (0-5) /HPF Urine Microscopic WBC 0-2 (0-5) /HPF Ur Epithelial Cells None Seen (None Seen) /HPF Urine Bacteria None Seen (None Seen) /HPF Urine Culture Reflexed NO (NO) 09/19/24 Range/Units 22:30 WBC 7.4 (3.98-10.04) x10^3/uL RBC 3.96 (3.93-5.22) x10^6/uL Hgb 11.4 (11.2-15.7) g/dL Hct 33.7 L (34.1-44.9) % MCV 85.1 (79.4-94.8) fL MCH 28.8 (25.6-32.2) pg MCHC 33.8 (32.2-35.5) g/dL RDW 12.0 (11.7-14.4) % Plt Count 177 L (182-369) x10^3/uL MPV 9.7 (9.4-12.3) fL Gran % 70.0 (34.0-71.1) % Immature Gran % (Auto) 0.3 (0.001-0.429) % Nucleat RBC Rel Count 0.0 (0.00-0.2) % Eos # (Auto) 0.19 (0.04-0.36) x10^3/uL Immature Gran # (Auto) 0.02 (0.001-0.031) x10^3u/L Absolute Lymphs (auto) 1.48 (1.18-3.74) x10^3/uL Absolute Monos (auto) 0.50 (0.24-0.86) x10^3/uL Absolute Nucleated RBC 0.00 (0.00-0.012) x10^3u/L Lymphocytes % 20.0 (19.3-51.7) % Monocytes % 6.7 (4.7-12.5) % Eosinophils % 2.6 (0.7-5.8) % Basophils % 0.4 (0.1-1.2) % Absolute Granulocytes 5.19 (1.56-6.13) x10^3/uL Basophils # 0.03 (0.01-0.08) x10^3/uL Sodium (135-145) mmol/L Potassium (3.5-5.1) mmol/L Chloride (98-107) mmol/L Carbon Dioxide (22-30) mmol/L Anion Gap (5-15) MEQ/L BUN (7-17) mg/dL Creatinine (0.52-1.04) mg/dL Estimated GFR ML/MIN Glucose (74-106) mg/dL Calcium (8.4-10.2) mg/dL Total Bilirubin (0.2-1.3) mg/dL AST (14-36) U/L ALT (0-35) U/L Alkaline Phosphatase (38-126) U/L Serum Total Protein (6.3-8.2) g/dL Albumin (3.5-5.0) g/dL Lipase (23-300) U/L Serum HCG, Qual (NEGATIVE) Urine Color (Yellow) Urine Appearance (Clear) Urine pH (4.6-8.0) Ur Specific [place] (1.005-1.030) Urine Protein (Negative) Urine Glucose (UA) (Negative) mg/dL Urine Ketones (Negative) Urine Blood (Negative) Urine Nitrite (Negative) Urine Bilirubin (Negative) Urine Urobilinogen (0.2) mg/dL Ur Leukocyte Esterase (Negative) U Hyaline Cast (Auto) (0-2) /LPF Urine Microscopic RBC (0-5) /HPF Urine Microscopic WBC (0-5) /HPF Ur Epithelial Cells (None Seen) /HPF Urine Bacteria (None Seen) /HPF Urine Culture Reflexed (NO) - Progress Progress: improved Progress Note: 09/19/24 22:34 Differential diagnosis includes kidney stone, compression fracture, infection, UTI, triple AAA, , ovarian cyst - basic labs including: CBC, lipase, CMP, UA, urine - insert IV for symptom management - consider imaging: CT ab/pelvis or U/S Reevaluation Patient feels improved with medication. 09/20/24 00:56 Patient's pain has completely resolved with medication here in the ER. CT scan demonstrates no acute intra-abdominal abnormality. Patient does have ovarian cysts of varying size. Some mild free fluid in the pelvis. Most likely related to ovarian cysts. I do believe patient's pain is related to this. Patient has no signs of torsion on CT scan. Abdominal pain is improved on abdominal reexam. Patient has no leukocytosis, is sleeping as I walk in the room. I have a lower suspicion for ovarian torsion based on history, physical, reexam. I did discuss all this with the patient and the patient's significant other. We did discuss obtaining an ultrasound tonight. Ultimately using shared decision making patient stated she would follow-up with [employer], Dr. De Paz for abdominal reexam tomorrow. They will return here sooner for any new or changing symptoms. They state their understanding significant other will drive patient home. Counseled pt/family regarding: lab results, diagnosis, need for follow-up, rad results - Departure Departure Disposition: Home Clinical Impression: Abdominal pain, Ovarian cyst Condition: Stable Critical Care Time: No Referrals: LIAN REYES [Primary Care Provider] - Follow up/PCP as directed ANJELICA DE PAZ DO [ACTIVE STAFF] - Follow up/PCP as directed Instructions: Abdominal pain Additional Instructions: See Dr. De Paz for abdominal reexam in 24 hours. Call his office for appointment tomorrow. Return to ER sooner for new or changing symptoms.
[2024-09-19] MEDS ORDERED: Hydromorphone 1 mg/ml Injection ONE (22:37)
[2024-09-19] MEDS ORDERED: Sodium Chloride 0.9% 1000 ML 1,000 ML ONE (22:37)
[2024-09-19] MEDS ORDERED: Zofran 4 MG/2 ML VIAL ONE (22:37)
[2024-09-19] MEDS: Sodium Chloride 0.9% 1000 ML 1,000 ML IV STA (22:38)
[2024-09-19] MEDS: Zofran 4 MG/2 ML VIAL IV ONE (22:38)
[2024-09-19] MEDS: Hydromorphone 1 mg/ml Injection IV ONE (22:38)
[2024-09-19 22:42] LABS: Absolute Neutrophil Ct (ANC) 5.19 x10^3/uL (1.56-6.13); BASOPHIL % 0.4 % (0.1-1.2); Basophil (Absolute #) 0.03 x10^3/uL (0.01-0.08); Eosinophil % 2.6 % (0.7-5.8); Eosinophil (Absolute #) 0.19 x10^3/uL (0.04-0.36); Hematocrit 33.7 % (34.1-44.9); Hemoglobin 11.4 g/dL (11.2-15.7); IMMATURE GRAN # 0.02 x10^3u/L (0.001-0.031); IMMATURE GRAN % 0.3 % (0.001-0.429); Lymphocyte (Absolute #) 1.48 x10^3/uL (1.18-3.74); Mean Cell Volume 85.1 fL (79.4-94.8); Mean Corpuscular Hemoglobin 28.8 pg (25.6-32.2); Mean Corpuscular Hgb Concent. 33.8 g/dL (32.2-35.5); Mean Platelet Volume 9.7 fL (9.4-12.3); Monocytes % 6.7 % (4.7-12.5); Platelet Count 177 x10^3/uL (182-369); Red Blood Count 3.96 x10^6/uL (3.93-5.22); White Blood Count 7.4 x10^3/uL (3.98-10.04)
[2024-09-19 22:55] LABS: ALBUMIN 4.5 g/dL (3.5-5.0); ANION GAP 10.2 MEQ/L (5-15); BILIRUBIN,TOTAL 0.6 mg/dL (0.2-1.3); Calcium 9.1 mg/dL (8.4-10.2); Creatinine 1 0.89 mg/dL (0.52-1.04); EST GLOMERULAR FILTRATION RATE 91.1 ML/MIN; Potassium 3.6 mmol/L (3.5-5.1); Total Protein 7.1 g/dL (6.3-8.2)
[2024-09-19 22:58] LABS: Appearance Clear (Clear); Bacteria None Seen /HPF (None Seen); Bilirubin Negative (Negative); Blood Large (Negative); Epithelial Cells None Seen /HPF (None Seen); Glucose, Urine Negative (Negative); Hyaline Casts NONE SEEN /LPF (0-2); Ketones Negative (Negative); Leukocyte Esterase Negative (Negative); Nitrite Negative (Negative); Ph 5.5 (4.6-8.0); Protein,Urine Dip Negative (Negative); Specific Gravity <=1.005 (1.005-1.030); Urobilinogen 0.2 mg/dL (0.2); WBC 0-2 /HPF (0-5)
[2024-09-19 23:02] LABS: HCG SERUM TEST NEGATIVE (NEGATIVE)
--- NOTE | 2024-09-20 00:19 | XRAY ---
CLINICAL HISTORY: lower abdomen pain COMPARISON: 15 Feb 2024. TECHNIQUE: Multiple contiguous axial images were obtained from the level of diaphragm to the pubis symphysis. This study was acquired after the IV administration of iodinated contrast material, given the patient's indications for the examination. If IV contrast material had not been administered, the likelihood of detecting abnormalities relevant to the patient's condition would have been substantially decreased. Coronal and sagittal reformatted images were generated and reviewed to improve anatomic localization and optimize lesion detection. CT scan was performed according to ALARA (as low as reasonably achievable). FINDINGS: The visualized lung bases are clear. ABDOMEN/PELVIS: Hepatomegaly is noted measuring 17 cm in craniocaudal extent. No focal liver lesions are seen. There is no intra or extrahepatic biliary ductal dilatation. Hepatic vasculature is patent. The gallbladder is unremarkable. The spleen is unremarkable. The pancreas is unremarkable. Both adrenal glands are unremarkable. The kidneys are normal in size and attenuation. There is no hydronephrosis. No perinephric fat stranding is seen. No renal calculi or renal masses are identified. The ureters are normal in caliber and no ureteral calculi are seen. The bladder is normal in contour. No evidence of focal or diffuse bowel wall thickening or evidence of bowel obstruction is seen. Both ovaries appear mildly enlarged. A peripherally enhancing cyst /dominant follicular cyst of size 2.8 x 2.4 cm is noted in the left ovary. Multiple peripherally enhancing small cysts are noted in the right ovary. Both ovaries are noted in the pouch of Dago and are seen abutting each other. Mild free fluid is noted in the pelvis The aorta is normal in caliber. Rest of the findings are unchanged compared to the previous CT scan. No aggressive appearing osseous lesions are identified. IMPRESSION: 1. Hepatomegaly measuring 17 cm. No significant interval change. 2. Both ovaries appear mildly enlarged. A peripherally enhancing cyst /dominant follicular cyst of size 2.8 x 2.4 cm is noted in the left ovary. Multiple peripherally enhancing small cysts are noted in the right ovary. These findings were not well appreciated on the previous scan in view of non-contrast study. 3. Mild free fluid is noted in the pelvis. In view of prior history of left ovarian cystectomy, location of the ovaries in the pouch of Dago which are seen abutting each other, possibility of underlying adhesion/endometriosis cannot be completely ruled out. MRI of the pelvis is suggested for better evaluation to rule out underlying endometriomas/endometriosis. Rest of the findings are unchanged compared to the previous CT scan. Electronically Signed by: Trenton Teran MD. (09/20/2024 00:14:16 EST)
[2024-09-20 00:35] VITALS: O2SAT 100
[2024-09-20 00:36] VITALS: BP 121/77; PULSE 74
== END 2024-09-20 00:41 | disposition home or self-care (01) ==
LOC: ED 22:10
DX: N83.209 Unspecified ovarian cyst, unspecified side (principal); R10.30 Lower abdominal pain, unspecified
CPT/HCPCS: 36415; 74177; 80053; 81001; 83690; 84703; 85025; 96374; 96375; 99284; 99285; J1171; J2405